=== PATIENT | male | born 1930 | race Caucasian/White ===

== ENCOUNTER 2018-07-09 15:11 | Inpatient (IN) | payer OTHER ==
[2018-07-09] MEDS ORDERED: SODIUM CHLORIDE 0.9% 500 ML INFUS.BAG IV ONE ×2 (15:48→17:50)
[2018-07-09] MEDS ORDERED: ACETAMINOPHEN 1000 MG/100 ML VIAL (NON FORMULARY) IVPB ONE (15:48)
[2018-07-09] MEDS ORDERED: ONDANSETRON 4 MG/2 ML VIAL IVPUSH ONE (15:48)
[2018-07-09 16:07] LABS: VENOUS PC02 41.8 mmHg (38-52); VENOUS PH 7.39 (7.32-7.42); VENOUS PO2 34.3 mmHg (28-48)
--- NOTE | 2018-07-09 16:07 | PDOC ---
History of Present Illness - General Chief Complaint: SIRS, Suspected/Possible Stated Complaint: FALL - History of Present Illness Initial Comments: The patient is an 88M w/ a history of HTN, BPH, prostate cancer, chronic angina who presents for evaluation of 2 days of generalized weakness/myalgias, fevers, and NBNB vomiting. The patient reports that the symptoms worsened yesterday and improved slightly today. The patient also fell today and may have been on the floor for up to two hours before being found by the home health aid who called EMS. Endorses daughter as sick contact, but she is w/o confirmed flu. Of note, patient recently started taking Xtandi again for reported recurrent prostate cancer. Denies HAJI, vision changes, SOB, abdominal pain, diarrhea, dysuria, hematuria, or changes in sensation PCP: Dr. Ilan Villaseñor Uro: Dr. Harris Cards: [facility] but pt does not know their name Code status: Full 07/09/18 16:07 Past History - Past Medical History Allergies/Adverse Reactions: Allergies Allergy/AdvReac Type Severity Reaction Status Date / Time No Known Allergies Allergy Verified 07/09/18 16:25 Home Medications: Ambulatory Orders Alfuzosin HCl [Uroxatral] 10 mg PO DAILY 07/09/18 Aspirin 81 mg PO DAILY 07/09/18 Chlorthalidone 25 mg PO DAILY 07/09/18 Enzalutamide [Xtandi] 80 mg PO BID 07/09/18 Hydralazine HCl 50 mg PO DAILY 07/09/18 Multivitamin [Multiple Vitamins] 1 each PO DAILY 07/09/18 Olmesartan Medoxomil [Benicar (Nf)] 40 mg PO DAILY 07/09/18 Ranolazine [Ranexa] 500 mg PO BID 07/09/18 COPD: No HTN: Yes Hypercholesterolemia: Yes - Suicide/Smoking/Psychosocial Hx Smoking History: Former smoker Have you smoked in the past 12 months: No Information on smoking cessation initiated: No Hx Alcohol Use: No Drug/Substance Use Hx: No Review of Systems - Review of Systems Able to Perform ROS?: Yes Comments:: GENERAL/CONSTITUTIONAL: No fever or chills. No weakness HEAD, EYES, EARS, NOSE AND THROAT: No change in vision. No ear pain or discharge. No sore throat CARDIOVASCULAR: No chest pain or shortness of breath RESPIRATORY: Denies cough, hemoptysis GASTROINTESTINAL: No diarrhea or constipation GENITOURINARY: No dysuria, frequency, or change in urination MUSCULOSKELETAL: +myalgia SKIN: No rash NEUROLOGIC: No headache, vertigo, loss of consciousness, or change in strength/ sensation ENDOCRINE: No increased thirst. No abnormal weight change HEMATOLOGIC/LYMPHATIC: +prostate cancer; Denies history of blood clot ALLERGIC/IMMUNOLOGIC: No hives or skin allergy 07/09/18 16:42 *Physical Exam - Vital Signs Last Vital Signs Temp Pulse Resp BP Pulse Ox 101.2 F H 86 18 189/97 H 92 L 07/09/18 15:31 07/09/18 15:31 07/09/18 15:31 07/09/18 15:31 07/09/18 15:31 - Physical Exam Comments: GENERAL: Awake, alert, and fully oriented, in no acute distress HEAD: No signs of trauma, normocephalic, atraumatic EYES: PERRLA, EOMI, sclera anicteric, conjunctiva clear ENT: Hearing grossly normal, nares patent, oropharynx clear without exudates. Moist mucosa LUNGS: No distress, speaks full sentences, clear to auscultation bilaterally HEART: Regular rate and rhythm, normal S1 and S2, no murmurs appreciated, peripheral pulses normal and equal bilaterally ABDOMEN: Soft, nontender, normoactive bowel sounds. No guarding, no rebound. No masses EXTREMITIES : Normal inspection, Normal range of motion, no edema. No clubbing or cyanosis NEUROLOGICAL: Cranial nerves II through XII grossly intact. Normal speech, no focal sensorimotor deficits SKIN: Warm, Dry 07/09/18 17:15 Moderate Sedation - Procedure Monitoring Vital Signs: Procedure Monitoring Vital Signs Temperature 101.2 F H 07/09/18 15:31 Pulse Rate 86 07/09/18 15:31 Respiratory Rate 18 07/09/18 15:31 Blood Pressure 189/97 H 07/09/18 15:31 O2 Sat by Pulse Oximetry (%) 92 L 07/09/18 15:31 ED Treatment Course - LABORATORY CBC & Chemistry Diagram: 07/09/18 15:50 07/09/18 15:50 - RADIOLOGY Radiology Studies Ordered: Category Date Time Status HEAD CT WITHOUT CONTRAST [CT] Stat CT Scan 07/09/18 16:06 Ordered CHEST X-RAY PORTABLE* [RAD] Stat Radiology 07/09/18 15:33 Ordered Medical Decision Making - Medical Decision Making The pt is an 88M w/ a history of prostate cancer, BPH, HTN who presents for evaluation of ED Course Sepsis w\u Flu swab 1L NS, Ofirmev, Pete Influenza A positive 07/09/18 16:32 No leukocytosis No anemia LFTs w/o sig derangement UA w/o evidence of UTI INR slightly elevated at 1.13 Cr 2.8, no previous to compare Trop I 0.18, likely demand Will give Zosyn 3.375 IV for presumed sepsis given fever and troponinemia Will give Tamiflu for influenza A Cont. IVF CT w/o evidence of acute bleed, evidence of acute Dispo: Admit for Abx and resuscitation Patient's daughter now reports that the patient has a history of kidney disease that she forgot to mention earlier but she does not know his baseline Cr. She says she will retrieve his health records from home and bring them here. 07/09/18 18:13 *DC/Admit/Observation/Transfer Diagnosis at time of Disposition: Influenza A, Prostate cancer Sepsis Qualifiers: Sepsis type: sepsis due to unspecified organism Qualified Code(s): A41.9 - Sepsis, unspecified organism - Discharge Dispostion Condition at time of disposition: Fair Decision to Admit order: Yes - Referrals Referrals: Ilan Villaseñor MD [Primary Care Provider] - - Patient Instructions - Post Discharge Activity
[2018-07-09 16:08] LABS: BASO % 0.4 % (0-2.0); EOS % 0.1 % (0-4.5); HEMATOCRIT 32.2 % (35.4-49); HEMOGLOBIN 11.1 GM/dL (11.7-16.9); LYMPH % 9.2 % (8-40); MCH 28.9 pg (25.7-33.7); MCHC 34.3 g/dl (32.0-35.9); MEAN CELL VOLUME 84.2 fl (80-96); MEAN PLT VOLUME 8.1 fl (7.5-11.1); MONO % 11.4 % (3.8-10.2); NEUT % 78.9 % (42.8-82.8); PLATELET COUNT 146 K/MM3 (134-434); RBC 3.83 M/mm3 (4.00-5.60); RDW 13.3 % (11.9-15.9); WHITE BLOOD COUNT 4.6 K/mm3 (4.0-10.0)
--- NOTE | 2018-07-09 16:14 | PDOC ---
Attending Attestation - HPI HPI: 07/09/18 16:35 88 year old male with past medical history of hypertension, chronic angina, and prostate CA who presents to the ED with complaints of generalized weakness, body aches, fever, nausea and vomiting. He also reports history of a fall today that was unwitnessed, stating he was on the floor for 2 hours before he was found by his aide. It is uncertain if he hit his head. Denies LOC, chest pain, palpitations, shortness of breath or urinary complaints. - Physicial Exam PE: 07/09/18 16:35 Vitals: Triage Vital signs reviewed General Appearance: no acute distress, lethargic Head: Atraumatic, normocephalic Eyes: Pupils equal reactive round, extraocular movement intact Neck: Supple;No Nuchal rigidity Cardiac: Regular rate and rhythm, no murmurs, no rubs, no gallops, Lungs: Clear to auscultation bilateral, good air movement bilaterally, Abdomen: Soft, nondistended, normal bowel sounds, nontender to palpation Extremities: Full range of motion to all extremities, no cyanosis, clubbing, or edema Skin: Warm and dry, no rashes or lesions, no petechiae Neuro: AOX3; Cranial Nerves 2-12 grossly intact, Strength intact to all extremities, Sensation intact to all extremities Psych: normal mood, normal affect - Medical Decision Making 07/09/18 16:36 Documentation prepared by Taina Sotomayor, acting as medical stenographer for Jairon Torres MD.. <Taina Sotomayor - Last Filed: 07/09/18 16:35> - Resident Resident Name: Jason Beckman - ED Attending Attestation I have performed the following: I have examined & evaluated the patient, The case was reviewed & discussed with the resident, I agree w/resident's findings & plan, Exceptions are as noted - Medical Decision Making 88 year old male with past medical history of hypertension, chronic angina, and prostate CA who presents to the ED with complaints of generalized weakness, body aches, fever, nausea and vomiting. He also reports history of a fall today that was unwitnessed, stating he was on the floor for 2 hours before he was found by his aide. It is uncertain if he hit his head. Denies LOC, chest pain, palpitations, shortness of breath or urinary complaints. Flu positive detectable troponin we'll admit for sepsis treat with Tamiflu IV fluids and further management <Jairon Torres - Last Filed: 07/09/18 16:49> Heart Score/ECG Review - ECG Impressions Comment:: 07/09/18 16:49 EKG performed at 1547 demonstrates normal sinus rhythm first-degree AV block left ventricular hypertrophy no ST elevations or T-wave inversions. Interpreted by me. <Jairon Torres - Last Filed: 07/09/18 16:49>
[2018-07-09 16:24] LABS: INR 1.13 (0.83-1.09); PROTHROMBIN TIME (PATIENT) 13.3 SEC (9.7-13.0)
[2018-07-09 16:27] LABS: ACTIVATED PTT 28.2 SECONDS (25.2-36.5)
[2018-07-09 16:29] LABS: URINE APPEARANCE CLEAR; URINE BILIRUBIN NEGATIVE (<2.0 mg/dL); URINE COLOR YELLOW; URINE GLUCOSE (UA) NEGATIVE (NEGATIVE); URINE KETONE NEGATIVE (NEGATIVE); URINE LEUK ESTERASE NEGATIVE (NEGATIVE); URINE NITRITE NEGATIVE (NEGATIVE); URINE PROTEIN 2+ (NEGATIVE); URINE UROBILINOGEN NEGATIVE mg/dL (0.2-1.0)
[2018-07-09 16:35] LABS: ALBUMIN 3.6 g/dl (3.4-5.0); ALK PHOS 75 U/L (45-117); ANION GAP 8 MMOL/L (8-16); BILIRUBIN,TOTAL 0.6 mg/dL (0.2-1); BLOOD UREA NITROGEN 38 mg/dL (7-18); CALCIUM 8.5 mg/dL (8.5-10.1); CHLORIDE 101 mmol/L (98-107); CO2 25 mmol/L (21-32); CREATININE 2.8 mg/dL (0.55-1.3); GLUCOSE,RANDOM 138 mg/dL (74-106); SGOT/AST 42 U/L (15-37); SGPT/ALT 24 U/L (13-61); SODIUM 135 mmol/L (136-145); TOT PROT 7.8 g/dl (6.4-8.2)
[2018-07-09 16:36] LABS: EPI CELLS RARE /HPF (FEW); URINE HYALINE CAST 1 /lpf; URINE MUCUS RARE
[2018-07-09] MEDS ORDERED: PIPERACILLIN/TAZOB 3.375 GM 3.375 GM in DEXTROSE 5%-WATER - 50 ML IVPB ONE (16:38)
[2018-07-09] MEDS ORDERED: OSELTAMIVIR PHOSPHATE 30 MG CAPSULE PO ONE (16:40)
[2018-07-09] MEDS ORDERED: OSELTAMIVIR PHOSPHATE 75 MG CAPSULE ONE (16:43)
[2018-07-09] MEDS ORDERED: PIPERACILLIN/TAZOB 3.375 GM 3.375 GM/50 ML BAG IVPB ONE (16:44)
[2018-07-09] MEDS ORDERED: OSELTAMIVIR PHOSPHATE 75 MG CAPSULE PO SCH ×4 (16:57→22:00)
--- NOTE | 2018-07-09 17:56 | HP ---
CHIEF COMPLAINT: Fall/Dizziness HISTORY OF PRESENT ILLNESS: Seen and examined; briefly, this is an 88 y/o vietnamese speaking male presenting to the ER with a CC of dizziness and fall at home; he was found to be flu positive and to have a positive troponin in the ER. Denies ever having any CP, SOB, etc. Denies any cough or sputum production. He is free of orthopnea/ dyspnea but is noted to have an elevated BNP but alonside elevated Cr which makes tis less reliable. He had no rotational movement with the fall, caught himself on the table, didn't hit his head and no LOC. 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 and that the patient doesn't know who it is there). He was given fluid and tamiflu in the ER and was brought to telemetry for further treatment and monitoring; due to his elevated trop/BNP echo has been ordered and I am consulting cardiology. Thank you Dr. Dominguez for allowing us to take part in the ongoing care of this patient. PAST MEDICAL HISTORY: HTN, BPH, CAD, Prostate CA, Chronic Anginal Pain PAST SURGICAL HISTORY: No recent procedures Social History: Denies current EtOH, drug, or tobacco abuse Family History: Asked and noncontributory Allergies No Known Allergies Allergy (Verified 07/09/18 16:25) HOME MEDICATIONS: Home Medications Medication Instructions Recorded Alfuzosin HCl [Uroxatral] 10 mg PO DAILY 07/09/18 Aspirin 81 mg PO DAILY 07/09/18 Chlorthalidone 25 mg PO DAILY 07/09/18 Enzalutamide [Xtandi] 80 mg PO BID 07/09/18 Hydralazine HCl 50 mg PO DAILY 07/09/18 Multivitamin [Multiple Vitamins] 1 each PO DAILY 07/09/18 Olmesartan Medoxomil [Benicar (Nf)] 40 mg PO DAILY 07/09/18 Ranolazine [Ranexa] 500 mg PO BID 07/09/18 REVIEW OF SYSTEMS 10 sys ROS done and negative aside from HPI PHYSICAL EXAMINATION Vital Signs - 24 hr 07/09/18 07/09/18 07/09/18 15:31 17:08 17:10 Temperature 101.2 F H Pulse Rate 86 Pulse Rate [ 90 Left Radial] Respiratory 18 18 18 Rate Blood Pressure 189/97 H Blood Pressure 175/73 H [Right Arm] O2 Sat by Pulse 92 L 93 L 98 Oximetry (%) GENERAL: Awake, alert, and fully oriented, in no acute distress. HEAD: Normal with no signs of trauma. EYES: Pupils equal, round and reactive to light, extraocular movements intact EARS, NOSE, THROAT: Ears normal, nares patent, oropharynx clear without exudates NECK: Normal range of motion, supple without lymphadenopathy, JVD, or masses. LUNGS: Breath sounds equal, clear to auscultation bilaterally. HEART: Regular rate and rhythm, normal S1 and S2 without murmur, rub or gallop. ABDOMEN: Soft, nontender, not distended, normoactive bowel sounds MUSCULOSKELETAL: Normal range of motion at all joints. NEUROLOGICAL: Cranial nerves II-XII intact. Normal speech. Normal gait. PSYCHIATRIC: Cooperative. Good eye contact. Appropriate mood and affect. SKIN: Warm, dry, normal turgor, no rashes or lesions noted, normal capillary refill. Laboratory Results - last 24 hr 07/09/18 07/09/18 07/09/18 15:50 15:50 15:50 WBC 4.6 RBC 3.83 L Hgb 11.1 L Hct 32.2 L MCV 84.2 MCH 28.9 MCHC 34.3 RDW 13.3 Plt Count 146 MPV 8.1 Absolute Neuts (auto) 3.6 Neutrophils % 78.9 Lymphocytes % 9.2 Monocytes % 11.4 H Eosinophils % 0.1 Basophils % 0.4 Nucleated RBC % 0 PT with INR 13.30 H INR 1.13 H PTT (Actin FS) 28.2 VBG pH 7.39 POC VBG pCO2 41.8 POC VBG pO2 34.3 Mixed VBG HCO3 24.5 Sodium Potassium Chloride Carbon Dioxide Anion Gap BUN Creatinine Creat Clearance w eGFR Random Glucose Lactic Acid Calcium Total Bilirubin AST ALT Alkaline Phosphatase Troponin I Total Protein Albumin Urine Color Urine Appearance Urine pH Ur Specific [place] Urine Protein Urine Glucose (UA) Urine Ketones Urine Blood Urine Nitrite Urine Bilirubin Urine Urobilinogen Ur Leukocyte Esterase Urine WBC (Auto) Urine RBC (Auto) Ur Epithelial Cells Hyaline Casts Urine Mucus Influenza A (Rapid) Influenza B (Rapid) 07/09/18 07/09/18 07/09/18 15:50 15:50 15:50 WBC RBC Hgb Hct MCV MCH MCHC RDW Plt Count MPV Absolute Neuts (auto) Neutrophils % Lymphocytes % Monocytes % Eosinophils % Basophils % Nucleated RBC % PT with INR INR PTT (Actin FS) VBG pH POC VBG pCO2 POC VBG pO2 Mixed VBG HCO3 Sodium 135 L Potassium 4.0 Chloride 101 Carbon Dioxide 25 Anion Gap 8 BUN 38 H Creatinine 2.8 H Creat Clearance w eGFR 21.54 Random Glucose 138 H Lactic Acid 1.4 Calcium 8.5 Total Bilirubin 0.6 AST 42 H ALT 24 Alkaline Phosphatase 75 Troponin I 0.18 H Total Protein 7.8 Albumin 3.6 Urine Color Urine Appearance Urine pH Ur Specific [place] Urine Protein Urine Glucose (UA) Urine Ketones Urine Blood Urine Nitrite Urine Bilirubin Urine Urobilinogen Ur Leukocyte Esterase Urine WBC (Auto) Urine RBC (Auto) Ur Epithelial Cells Hyaline Casts Urine Mucus Influenza A (Rapid) Influenza B (Rapid) 07/09/18 07/09/18 15:50 16:05 WBC RBC Hgb Hct MCV MCH MCHC RDW Plt Count MPV Absolute Neuts (auto) Neutrophils % Lymphocytes % Monocytes % Eosinophils % Basophils % Nucleated RBC % PT with INR INR PTT (Actin FS) VBG pH POC VBG pCO2 POC VBG pO2 Mixed VBG HCO3 Sodium Potassium Chloride Carbon Dioxide Anion Gap BUN Creatinine Creat Clearance w eGFR Random Glucose Lactic Acid Calcium Total Bilirubin AST ALT Alkaline Phosphatase Troponin I Total Protein Albumin Urine Color Yellow Urine Appearance Clear Urine pH 5.0 Ur Specific [place] 1.017 Urine Protein 2+ H Urine Glucose (UA) Negative Urine Ketones Negative Urine Blood 1+ H Urine Nitrite Negative Urine Bilirubin Negative Urine Urobilinogen Negative Ur Leukocyte Esterase Negative Urine WBC (Auto) 1 Urine RBC (Auto) <1 Ur Epithelial Cells Rare Hyaline Casts 1 Urine Mucus Rare Influenza A (Rapid) Positive A Influenza B (Rapid) Negative ASSESSMENT/PLAN: Presents with fall/elevated troponin/dizziness found to have +flu and elevated BNP but with elevated Cr. Will bring in to the floor and consult cardiology, monitoring the patient on telemetry. 1) Fall/Dizziness -Checking echo, carotid dopplers. No selene syncope. Checking orthostatics. -Could be due to the underlying influenza -Monitor on tele 2) Elevated troponin -QD ASA; trend trops, monitor tele. Consulting cardiology. Elevated Cr can falsely elevate the troponin but still should be investigated. 0.2 to 0.3 3) Influenza A -BID Tamiflu, monitor for improvement 4) HTN -Continue home meds 5) Elevated Cr -MILTON vs. CKD; checking RENU and need to obtain old records in the AM. Trend BMP and follow Cr and UOP. Checking FeNa 6) Elevated BNP -Is requiring small amount of O2; no respiratory complaints. Will place on incentive spirometry and check an echo. Holding off on further fluids; no need to diurese now. Will defer to cardiology. He does have elevated Cr which can falsely elevate this 7) Hx Prostate Ca -Follows with Dr. Harris; no acute issues. FU OP. 8) Chronic Angina -Denies any chest pain; continue home ranexa FENA -PO fluids -PRN replete -Cardiac diet -As tolerated Full Code Visit type - Emergency Visit Emergency Visit: Yes ED Registration Date: 07/09/18 Care time: The patient presented to the Emergency Department on the above date and was hospitalized for further evaluation of their emergent condition. - New Patient This patient is new to me today: Yes Date on this admission: 07/18/18 - Critical Care Critical Care patient: No
[2018-07-09] MEDS ORDERED: SODIUM CHLORIDE 1,000 ML IV SCH (18:00)
[2018-07-09] MEDS: HEPARIN NA (PORCINE) 5,000 UNITS/ML 1ML VIAL SQ SCH (21:51)
[2018-07-09] MEDS ORDERED: ENZALUTAMIDE 80 MG PO SCH (22:00)
[2018-07-09] MEDS ORDERED: OSELTAMIVIR PHOSPHATE 30 MG CAPSULE PO SCH (22:00)
[2018-07-09] MEDS: RANOLAZINE E.R. 500 MG TABLET (FP) PO SCH (22:41)
[2018-07-10] MEDS ORDERED: ACETAMINOPHEN 325 MG TABLET (FP) PO ONE (05:58)
[2018-07-10 06:51] LABS: BASO % 0.6 % (0-2.0); HEMATOCRIT 30.6 % (35.4-49); HEMOGLOBIN 10.2 GM/dL (11.7-16.9); LYMPH % 33.6 % (8-40); MCHC 33.3 g/dl (32.0-35.9); MEAN CELL VOLUME 84.1 fl (80-96); MONO % 15.6 % (3.8-10.2); NEUT % 50.2 % (42.8-82.8); PLATELET COUNT 130 K/MM3 (134-434); RBC 3.64 M/mm3 (4.00-5.60); RDW 13.7 % (11.9-15.9); WHITE BLOOD COUNT 3.5 K/mm3 (4.0-10.0)
[2018-07-10 07:25] LABS: ALK PHOS 58 U/L (45-117); ANION GAP 9 MMOL/L (8-16); BILIRUBIN,TOTAL 0.5 mg/dL (0.2-1); BLOOD UREA NITROGEN 43 mg/dL (7-18); CALCIUM 8.2 mg/dL (8.5-10.1); CHLORIDE 105 mmol/L (98-107); CO2 26 mmol/L (21-32); CREATININE 2.6 mg/dL (0.55-1.3); GLUCOSE,RANDOM 92 mg/dL (74-106); SGOT/AST 56 U/L (15-37); SGPT/ALT 23 U/L (13-61); SODIUM 140 mmol/L (136-145); TOT PROT 6.4 g/dl (6.4-8.2)
[2018-07-10] MEDS: TAMSULOSIN HCL 0.4 MG CAP PO SCH (07:59)
[2018-07-10] MEDS ORDERED: OSELTAMIVIR PHOSPHATE 30 MG CAPSULE PO SCH (10:00)
[2018-07-10] MEDS ORDERED: PT OWN MED DRAWER 7, Y5N ONE (10:53)
[2018-07-10] MEDS: HEPARIN NA (PORCINE) 5,000 UNITS/ML 1ML VIAL SQ SCH ×2 (10:59→21:57)
[2018-07-10] MEDS: RANOLAZINE E.R. 500 MG TABLET (FP) PO SCH ×2 (11:00→21:57)
[2018-07-10] MEDS: hydrALAZINE HCL 50 MG TABLET (FP) PO SCH (11:00)
[2018-07-10] MEDS: MULTIVITAMINS (DAILY MVI) TABLET (FP) PO SCH (11:00)
[2018-07-10] MEDS: CHLORTHALIDONE 25 MG TABLET PO SCH (11:00)
[2018-07-10] MEDS: ASPIRIN 81 MG CHEWABLE TABLETS PO SCH (11:00)
[2018-07-10] MEDS: VALSARTAN 160 MG TABLET (UD) PO SCH (11:00)
--- NOTE | 2018-07-10 11:04 | ECHO ---
Version: 1 Name: BRIANDA XIE Exam: Adult Echocardiogram Study Date: 07/10/2018, 9:01 AM Age: 88 Years MMode/2D Measurements & Calculations IVSd: 0.85 cm LVIDs: 3.4 cm LVIDd: 4.6 cm LVPWd: 0.83 cm Ao root diam: 3.1 cm LA dimension: 3.7 cm Doppler Measurements & Calculations MV E max jason: 61.7 cm/sec Med E/e': 15.1 MV A max jason: 102.7 cm/sec Med Peak E' Jason: 4.1 cm/sec MV E/A: 0.60 Lat E/e': 11.3 Lat Peak E' Jason: 5.5 cm/sec MR max P.2 mmHg AI P1/2t: 577.6 msec TR max jason: 263.3 cm/sec TR max P.8 mmHg Left Ventricle There is mild asymmetric left ventricular hypertrophy. The left ventricular ejection fraction is nor mal. Ejection Fraction = 55-60%. Right Ventricle The right ventricle is normal in size and function. Atria Normal left and right atrial size and function. Mitral Valve There is mild to moderate mitral valve thickening. There is no mitral valve stenosis. There is mild mitral regurgitation. Tricuspid Valve The tricuspid valve is normal in structure and function. There is mild tricuspid regurgitation. Aortic Valve There is moderate aortic sclerosis.;. No hemodynamically significant valvular aortic stenosis. Mild aortic regurgitation. Pulmonic Valve The pulmonic valve is not well seen, but is grossly normal. There is no pulmonic valvular stenosis. Great Vessels The aortic root is normal size. Pericardium/Pleura There is no pericardial effusion. Summary Statements There is mild asymmetric left ventricular hypertrophy. The left ventricular ejection fraction is normal. Ejection Fraction = 55-60%. There is mild to moderate mitral valve thickening. There is mild mitral regurgitation. There is moderate aortic sclerosis.; Mild aortic regurgitation. There is no pericardial effusion. MD Lares *Wallace 07/10/2018, 11:03 AM Ordering Physician: SAI ALFREDO Referring Physician: ANISH MALCOLM Performed By: Gabby Vargas
--- NOTE | 2018-07-10 11:41 | EKG ---
Test Reason : Blood Pressure : / mmHG Vent. Rate : 078 BPM Atrial Rate : 078 BPM P-R Int : 246 ms QRS Dur : 096 ms QT Int : 384 ms P-R-T Axes : 049 004 065 degrees QTc Int : 437 ms SINUS RHYTHM WITH 1ST DEGREE A-V BLOCK POSSIBLE LEFT ATRIAL ENLARGEMENT LEFT VENTRICULAR HYPERTROPHY NONSPECIFIC T WAVE ABNORMALITY ABNORMAL ECG WHEN COMPARED WITH ECG OF 09-JUL-2018 15:47, NO SIGNIFICANT CHANGE WAS FOUND Confirmed by AG DAILEY, SHANNA ([id number]) on 07/10/2018 11:41:04 AM Referred By: Confirmed By:SHANNA LUONG MD
--- NOTE | 2018-07-10 11:58 | EKG ---
Test Reason : Blood Pressure : / mmHG Vent. Rate : 092 BPM Atrial Rate : 092 BPM P-R Int : 232 ms QRS Dur : 098 ms QT Int : 340 ms P-R-T Axes : 050 -02 070 degrees QTc Int : 420 ms POOR DATA QUALITY, INTERPRETATION MAY BE ADVERSELY AFFECTED SINUS RHYTHM WITH 1ST DEGREE A-V BLOCK POSSIBLE LEFT ATRIAL ENLARGEMENT LEFT VENTRICULAR HYPERTROPHY ABNORMAL ECG NO PREVIOUS ECGS AVAILABLE Confirmed by AG DAILEY, SHANNA ([id number]) on 07/10/2018 11:57:53 AM Referred By: Confirmed By:SHANNA LUONG MD
--- NOTE | 2018-07-10 12:31 | CON.CARD ---
Cardiology Consult (text) - Consultation Consultation Note: cc: weakness, fever hpi: 88 m hx htn, angina, here with weakness, fever, found to have flu. No cp sob palps dizzy loc pnd orthopnea le edema. On meds for flu now, feeling better. Sees cardio at [facility] for htn. He denies cad/mi hx. pmh: per hpi psh: nc fam: no premature cad, scd social: no tob ros: per hpi; +fever, +n/v, no dysuria hematuria gib, +cough meds: Ambulatory Orders Alfuzosin HCl [Uroxatral] 10 mg PO DAILY 07/09/18 Aspirin 81 mg PO DAILY 07/09/18 Chlorthalidone 25 mg PO DAILY 07/09/18 Enzalutamide [Xtandi] 80 mg PO BID 07/09/18 Hydralazine HCl 50 mg PO DAILY 07/09/18 Multivitamin [Multiple Vitamins] 1 each PO DAILY 07/09/18 Olmesartan Medoxomil [Benicar (Nf)] 40 mg PO DAILY 07/09/18 Ranolazine [Ranexa] 500 mg PO BID 07/09/18 pe: Vital Signs Period Temp Pulse Resp BP Sys/Diez Pulse Ox Last 24 Hr 98.6 F-101.2 F 68-90 18-20 148-189/73-98 92-98 nad no jvd rrr s1s2 no mrg cta bl nl eff aaox3 no le e/c/c abd nt nd pos bs no jaundice diaphoresis pos dp pt no carotid bruits Current Medications Generic Name Dose Route Start Last Admin Trade Name Nani PRN Reason Stop Dose Admin Aspirin 81 mg 07/10/18 10:00 07/10/18 11:00 Asa - PO 81 mg DAILY BEULAH Administration Chlorthalidone 25 mg 07/10/18 10:00 07/10/18 11:00 Hygroton - PO 25 mg DAILY BEULAH Administration Heparin Sodium (Porcine) 5,000 unit 07/09/18 22:00 07/10/18 10:59 Heparin - SQ 5,000 unit BID BEULAH Administration Hydralazine HCl 50 mg 07/10/18 10:00 07/10/18 11:00 Apresoline - PO 50 mg DAILY BEULAH Administration Multivitamins/Minerals/Vitamin C 1 tab 07/10/18 10:00 07/10/18 11:00 Tab-A-Vit - PO 1 tab DAILY BEULAH Administration Non-Formulary Medication 80 mg 07/09/18 22:00 Enzalutamide [Xtandi] PO BID BEULAH Oseltamivir Phosphate 30 mg 07/09/18 22:00 Tamiflu - PO 07/14/18 21:59 BID BEULAH Ranolazine 500 mg 07/09/18 22:00 07/10/18 11:00 Ranexa - PO 500 mg BID BEULAH Administration Tamsulosin HCl 0.4 mg 07/10/18 08:30 07/10/18 07:59 Flomax - PO 0.4 mg DAILY@0830 BEULAH Administration Valsartan 320 mg 07/10/18 10:00 07/10/18 11:00 Diovan - PO 320 mg DAILY BEULAH Administration Laboratory Last Values WBC 3.5 K/mm3 (4.0-10.0) L 07/10/18 05:30 RBC 3.64 M/mm3 (4.00-5.60) L 07/10/18 05:30 Hgb 10.2 GM/dL (11.7-16.9) L 07/10/18 05:30 Hct 30.6 % (35.4-49) L 07/10/18 05:30 MCV 84.1 fl (80-96) 07/10/18 05:30 MCH 28.0 pg (25.7-33.7) 07/10/18 05:30 MCHC 33.3 g/dl (32.0-35.9) 07/10/18 05:30 RDW 13.7 % (11.9-15.9) 07/10/18 05:30 Plt Count 130 K/MM3 (134-434) L 07/10/18 05:30 MPV 8.0 fl (7.5-11.1) 07/10/18 05:30 Absolute Neuts (auto) 1.8 K/mm3 (1.5-8.0) 07/10/18 05:30 Neutrophils % 50.2 % (42.8-82.8) D 07/10/18 05:30 Lymphocytes % 33.6 % (8-40) D 07/10/18 05:30 Monocytes % 15.6 % (3.8-10.2) H 07/10/18 05:30 Eosinophils % 0.0 % (0-4.5) D 07/10/18 05:30 Basophils % 0.6 % (0-2.0) 07/10/18 05:30 Nucleated RBC % 0 % (0-0) 07/10/18 05:30 PT with INR 13.30 SEC (9.7-13.0) H 07/09/18 15:50 INR 1.13 (0.83-1.09) H 07/09/18 15:50 PTT (Actin FS) 28.2 SECONDS (25.2-36.5) 07/09/18 15:50 VBG pH 7.39 (7.32-7.42) 07/09/18 15:50 POC VBG pCO2 41.8 mmHg (38-52) 07/09/18 15:50 POC VBG pO2 34.3 mmHg (28-48) 07/09/18 15:50 Mixed VBG HCO3 24.5 meq/L (19-25) 07/09/18 15:50 Sodium 140 mmol/L (136-145) 07/10/18 05:30 Potassium 4.0 mmol/L (3.5-5.1) 07/10/18 05:30 Chloride 105 mmol/L (98-107) 07/10/18 05:30 Carbon Dioxide 26 mmol/L (21-32) 07/10/18 05:30 Anion Gap 9 MMOL/L (8-16) 07/10/18 05:30 BUN 43 mg/dL (7-18) H 07/10/18 05:30 Creatinine 2.6 mg/dL (0.55-1.3) H 07/10/18 05:30 Creat Clearance w eGFR 23.47 (>60) 07/10/18 05:30 Random Glucose 92 mg/dL (74-106) 07/10/18 05:30 Hemoglobin A1c % 6.0 % (4.2-6.3) 07/09/18 19:03 Lactic Acid 1.3 mmol/L (0.4-2.0) 07/09/18 19:03 Calcium 8.2 mg/dL (8.5-10.1) L 07/10/18 05:30 Magnesium 2.0 mg/dL (1.8-2.4) 07/10/18 05:30 Total Bilirubin 0.5 mg/dL (0.2-1) 07/10/18 05:30 AST 56 U/L (15-37) H 07/10/18 05:30 ALT 23 U/L (13-61) 07/10/18 05:30 Alkaline Phosphatase 58 U/L (45-117) 07/10/18 05:30 Creatine Kinase 1577 U/L (26-308) H 07/10/18 03:00 Creatine Kinase Index 0.1 % (0.0-5.0) 07/10/18 03:00 CK-MB (CK-2) 3.1 ng/mL (0.5-3.6) 07/10/18 03:00 Troponin I 0.34 ng/ml (0.00-0.05) H 07/10/18 09:55 B-Natriuretic Peptide 3651.0 pg/ml (5-450) H 07/09/18 19:03 Total Protein 6.4 g/dl (6.4-8.2) 07/10/18 05:30 Albumin 3.0 g/dl (3.4-5.0) L 07/10/18 05:30 Triglycerides 66 mg/dL (0-150) 07/09/18 19:03 Cholesterol 172 mg/dL (50-200) 07/09/18 19:03 Total LDL Cholesterol 100 mg/dL (5-100) 07/09/18 19:03 HDL Cholesterol 60 mg/dL (40-60) 07/09/18 19:03 Urine Color Yellow 07/09/18 16:05 Urine Appearance Clear 07/09/18 16:05 Urine pH 5.0 (5.0-8.0) 07/09/18 16:05 Ur Specific [place] 1.017 (1.010-1.035) 07/09/18 16:05 Urine Protein 2+ (NEGATIVE) H 07/09/18 16:05 Urine Glucose (UA) Negative (NEGATIVE) 07/09/18 16:05 Urine Ketones Negative (NEGATIVE) 07/09/18 16:05 Urine Blood 1+ (NEGATIVE) H 07/09/18 16:05 Urine Nitrite Negative (NEGATIVE) 07/09/18 16:05 Urine Bilirubin Negative (<2.0 mg/dL) 07/09/18 16:05 Urine Urobilinogen Negative mg/dL (0.2-1.0) 07/09/18 16:05 Ur Leukocyte Esterase Negative (NEGATIVE) 07/09/18 16:05 Urine WBC (Auto) 1 /hpf (3-5) 07/09/18 16:05 Urine RBC (Auto) <1 /hpf (0-3) 07/09/18 16:05 Ur Epithelial Cells Rare /HPF (FEW) 07/09/18 16:05 Hyaline Casts 1 /lpf 07/09/18 16:05 Urine Mucus Rare 07/09/18 16:05 Urine Creatinine 92.0 mg/dL (20-320) 07/10/18 00:15 Influenza A (Rapid) Positive A 07/09/18 15:50 Influenza B (Rapid) Negative 07/09/18 15:50 tele: sr cxr: no chf ecg: sr no ischemic changes, nl qtc a/p: 88 m hx htn, angina, here with weakness, fever, found to have flu. flu: -tx per pmd/ID htn: -resume home meds and monitor cad, angina: -pt on ranexa and sees an outside box worker but pt denies hx cad/mi -no signs acs here, borderline trop with flat trend, nl ckmb, not c/w acs -check echo -cont home meds sri/ckd: -baseline unknown, monitor cr trend
--- NOTE | 2018-07-10 14:24 | PN ---
Progress Note, Physician Chief Complaint: Influenza A positive Elevated troponin History of Present Illness: Previous notes and events reviewed awake and alert NAD denies chest pain, SOB Echo show EF 55-60% - Current Medication List Current Medications: Active Medications Aspirin (Asa -) 81 mg PO DAILY [facility] Last Admin: 07/10/18 11:00 Dose: 81 mg Chlorthalidone (Hygroton -) 25 mg PO DAILY [facility] Last Admin: 07/10/18 11:00 Dose: 25 mg Heparin Sodium (Porcine) (Heparin -) 5,000 unit SQ BID [facility] Last Admin: 07/10/18 10:59 Dose: 5,000 unit Hydralazine HCl (Apresoline -) 50 mg PO DAILY [facility] Last Admin: 07/10/18 11:00 Dose: 50 mg Multivitamins/Minerals/Vitamin C (Tab-A-Vit -) 1 tab PO DAILY [facility] Last Admin: 07/10/18 11:00 Dose: 1 tab Non-Formulary Medication (Enzalutamide [Xtandi]) 80 mg PO BID [facility] Oseltamivir Phosphate (Tamiflu -) 30 mg PO BID [facility] Stop: 07/14/18 21:59 Oseltamivir Phosphate (Tamiflu -) 30 mg PO DAILY [facility] Stop: 07/16/18 09:59 Ranolazine (Ranexa -) 500 mg PO BID [facility] Last Admin: 07/10/18 11:00 Dose: 500 mg Tamsulosin HCl (Flomax -) 0.4 mg PO DAILY@0830 [facility] Last Admin: 07/10/18 07:59 Dose: 0.4 mg Valsartan (Diovan -) 320 mg PO DAILY [facility] Last Admin: 07/10/18 11:00 Dose: 320 mg - Objective Vital Signs: Vital Signs Temperature 98.4 F 07/10/18 13:55 Pulse Rate 75 07/10/18 13:55 Respiratory Rate 18 07/10/18 13:55 Blood Pressure 147/77 07/10/18 13:55 O2 Sat by Pulse Oximetry (%) 97 07/09/18 21:00 Constitutional: Yes: No Distress, Calm Eyes: Yes: Conjunctiva Clear Neck: Yes: Supple Cardiovascular: Yes: Regular Rate and Rhythm Respiratory: Yes: Regular, CTA Bilaterally Gastrointestinal: Yes: Normal Bowel Sounds, Soft Musculoskeletal: Yes: WNL Extremities: Yes: WNL Edema: No Neurological: Yes: Alert, Oriented Psychiatric: Yes: Alert, Oriented Labs: CBC, BMP 07/10/18 05:30 07/10/18 05:30 INR, PTT INR 1.13 (0.83-1.09) H 07/09/18 15:50 Abnormal Lab Results 07/09/18 07/09/18 07/09/18 15:50 15:50 15:50 WBC RBC 3.83 L Hgb 11.1 L Hct 32.2 L Plt Count Monocytes % 11.4 H PT with INR 13.30 H INR 1.13 H Sodium 135 L BUN 38 H Creatinine 2.8 H Random Glucose 138 H Calcium AST 42 H Creatine Kinase Troponin I B-Natriuretic Peptide Albumin Urine Protein Urine Blood Influenza A (Rapid) 07/09/18 07/09/18 07/09/18 15:50 15:50 16:05 WBC RBC Hgb Hct Plt Count Monocytes % PT with INR INR Sodium BUN Creatinine Random Glucose Calcium AST Creatine Kinase Troponin I 0.18 H B-Natriuretic Peptide Albumin Urine Protein 2+ H Urine Blood 1+ H Influenza A (Rapid) Positive A 07/09/18 07/10/18 07/10/18 19:03 03:00 05:30 WBC 3.5 L RBC 3.64 L Hgb 10.2 L Hct 30.6 L Plt Count 130 L Monocytes % 15.6 H PT with INR INR Sodium BUN Creatinine Random Glucose Calcium AST Creatine Kinase 1577 H Troponin I 0.37 H B-Natriuretic Peptide 3651.0 H Albumin Urine Protein Urine Blood Influenza A (Rapid) 07/10/18 07/10/18 05:30 09:55 WBC RBC Hgb Hct Plt Count Monocytes % PT with INR INR Sodium BUN 43 H Creatinine 2.6 H Random Glucose Calcium 8.2 L AST 56 H Creatine Kinase Troponin I 0.34 H B-Natriuretic Peptide Albumin 3.0 L Urine Protein Urine Blood Influenza A (Rapid) <Susana Leal - Last Filed: 07/10/18 14:19> - Current Medication List Current Medications: Active Medications Aspirin (Asa -) 81 mg PO DAILY [facility] Last Admin: 07/11/18 10:08 Dose: 81 mg Chlorthalidone (Hygroton -) 12.5 mg PO DAILY [facility] Heparin Sodium (Porcine) (Heparin -) 5,000 unit SQ BID [facility] Last Admin: 07/11/18 10:09 Dose: 5,000 unit Hydralazine HCl (Apresoline -) 50 mg PO DAILY [facility] Last Admin: 07/11/18 10:08 Dose: 50 mg Multivitamins/Minerals/Vitamin C (Tab-A-Vit -) 1 tab PO DAILY [facility] Last Admin: 07/11/18 10:08 Dose: 1 tab Non-Formulary Medication (Enzalutamide [Xtandi]) 80 mg PO BID [facility] Oseltamivir Phosphate (Tamiflu -) 30 mg PO DAILY [facility] Stop: 07/16/18 09:59 Last Admin: 07/11/18 10:09 Dose: 30 mg Ranolazine (Ranexa -) 500 mg PO BID [facility] Last Admin: 07/11/18 10:08 Dose: 500 mg Tamsulosin HCl (Flomax -) 0.4 mg PO DAILY@0830 [facility] Last Admin: 07/11/18 10:09 Dose: 0.4 mg Valsartan (Diovan -) 160 mg PO DAILY [facility] - Objective Vital Signs: Vital Signs Temperature 98.3 F 07/11/18 10:00 Pulse Rate 77 07/11/18 10:00 Respiratory Rate 18 07/11/18 10:00 Blood Pressure 133/60 07/11/18 10:00 O2 Sat by Pulse Oximetry (%) 100 07/11/18 09:00 Labs: CBC, BMP 07/11/18 05:25 07/11/18 05:25 INR, PTT INR 1.13 (0.83-1.09) H 07/09/18 15:50 <Emiliana Dominguez - Last Filed: 07/11/18 15:24> Problem List - Problems (1) Influenza A Assessment/Plan: -tamiflu 30mg daily x 7d -respiratory isolation -tylenol for temp >100F Code(s): J10.1 - FLU DUE TO OTH IDENT INFLUENZA VIRUS W OTH RESP MANIFEST (2) Elevated troponin Assessment/Plan: -troponin 0.34 -will monitor for down trend -continue tele monitoring -cardiology on board Code(s): R74.8 - ABNORMAL LEVELS OF OTHER SERUM ENZYMES (3) HTN (hypertension) Assessment/Plan: -continue with chlorthalidone, diovan -low Na diet Code(s): I10 - ESSENTIAL (PRIMARY) HYPERTENSION (4) CAD (coronary artery disease) Assessment/Plan: -cont Ranexa and asa -echo show EF 55-60% -cardiology on board -continue tele monitoring Code(s): I25.10 - ATHSCL HEART DISEASE OF [place] CORONARY ARTERY W/O ANG PCTRS (5) MILTON (acute kidney injury) Assessment/Plan: -BUN/Cr elevated -renal consult made Code(s): N17.9 - ACUTE KIDNEY FAILURE, UNSPECIFIED <Susana Leal - Last Filed: 07/10/18 14:19> Assessment/Plan PATIENT SEEN AND EXAMINED AND I AGREE WITH THE ABOVE NOTE <Emiliana Dominguez - Last Filed: 07/11/18 15:24>
[2018-07-10] MEDS ORDERED: OSELTAMIVIR PHOSPHATE 30 MG CAPSULE PO ONE (14:45)
[2018-07-11 08:04] LABS: HEMATOCRIT 30.8 % (35.4-49); HEMOGLOBIN 10.4 GM/dL (11.7-16.9); MCH 28.2 pg (25.7-33.7); MCHC 33.7 g/dl (32.0-35.9); MEAN CELL VOLUME 83.7 fl (80-96); MEAN PLT VOLUME 8.3 fl (7.5-11.1); PLATELET COUNT 144 K/MM3 (134-434); RBC 3.68 M/mm3 (4.00-5.60); RDW 13.6 % (11.9-15.9); WHITE BLOOD COUNT 3.8 K/mm3 (4.0-10.0)
[2018-07-11 09:01] LABS: ALBUMIN 3.1 g/dl (3.4-5.0); ALK PHOS 59 U/L (45-117); ANION GAP 8 MMOL/L (8-16); BILIRUBIN,TOTAL 0.3 mg/dL (0.2-1); BLOOD UREA NITROGEN 48 mg/dL (7-18); CALCIUM 7.9 mg/dL (8.5-10.1); CHLORIDE 102 mmol/L (98-107); CO2 26 mmol/L (21-32); CREATININE 2.6 mg/dL (0.55-1.3); GLUCOSE,RANDOM 95 mg/dL (74-106); POTASSIUM 3.9 mmol/L (3.5-5.1); SGOT/AST 63 U/L (15-37); SGPT/ALT 26 U/L (13-61); SODIUM 135 mmol/L (136-145); TOT PROT 6.8 g/dl (6.4-8.2)
[2018-07-11] MEDS: VALSARTAN 160 MG TABLET (UD) PO SCH (10:08)
[2018-07-11] MEDS: ASPIRIN 81 MG CHEWABLE TABLETS PO SCH (10:08)
[2018-07-11] MEDS: RANOLAZINE E.R. 500 MG TABLET (FP) PO SCH ×2 (10:08→21:54)
[2018-07-11] MEDS: MULTIVITAMINS (DAILY MVI) TABLET (FP) PO SCH (10:08)
[2018-07-11] MEDS: hydrALAZINE HCL 50 MG TABLET (FP) PO SCH (10:08)
[2018-07-11] MEDS: CHLORTHALIDONE 25 MG TABLET PO SCH (10:08)
[2018-07-11] MEDS: HEPARIN NA (PORCINE) 5,000 UNITS/ML 1ML VIAL SQ SCH ×2 (10:09→21:54)
[2018-07-11] MEDS: OSELTAMIVIR PHOSPHATE 30 MG CAPSULE PO SCH (10:09)
[2018-07-11] MEDS: TAMSULOSIN HCL 0.4 MG CAP PO SCH (10:09)
--- NOTE | 2018-07-11 12:10 | PN ---
Progress Note, Physician History of Present Illness: No events Tele: NSR with PVCs - Current Medication List Current Medications: Active Medications Aspirin (Asa -) 81 mg PO DAILY [facility] Last Admin: 07/11/18 10:08 Dose: 81 mg Chlorthalidone (Hygroton -) 25 mg PO DAILY [facility] Last Admin: 07/11/18 10:08 Dose: 25 mg Heparin Sodium (Porcine) (Heparin -) 5,000 unit SQ BID [facility] Last Admin: 07/11/18 10:09 Dose: 5,000 unit Hydralazine HCl (Apresoline -) 50 mg PO DAILY [facility] Last Admin: 07/11/18 10:08 Dose: 50 mg Multivitamins/Minerals/Vitamin C (Tab-A-Vit -) 1 tab PO DAILY [facility] Last Admin: 07/11/18 10:08 Dose: 1 tab Non-Formulary Medication (Enzalutamide [Xtandi]) 80 mg PO BID [facility] Oseltamivir Phosphate (Tamiflu -) 30 mg PO DAILY [facility] Stop: 07/16/18 09:59 Last Admin: 07/11/18 10:09 Dose: 30 mg Ranolazine (Ranexa -) 500 mg PO BID [facility] Last Admin: 07/11/18 10:08 Dose: 500 mg Tamsulosin HCl (Flomax -) 0.4 mg PO DAILY@0830 [facility] Last Admin: 07/11/18 10:09 Dose: 0.4 mg Valsartan (Diovan -) 320 mg PO DAILY [facility] Last Admin: 07/11/18 10:08 Dose: 320 mg - Objective Vital Signs: Vital Signs Temperature 98.3 F 07/11/18 10:00 Pulse Rate 77 07/11/18 10:00 Respiratory Rate 18 07/11/18 10:00 Blood Pressure 133/60 07/11/18 10:00 O2 Sat by Pulse Oximetry (%) 100 07/11/18 09:00 Constitutional: Yes: Calm Eyes: Yes: WNL HENT: Yes: WNL Neck: Yes: WNL Cardiovascular: Yes: Regular Rate and Rhythm Respiratory: Yes: CTA Bilaterally Gastrointestinal: Yes: Normal Bowel Sounds Musculoskeletal: Yes: WNL Extremities: Yes: WNL Edema: No Labs: CBC, BMP 07/11/18 05:25 07/11/18 05:25 INR, PTT INR 1.13 (0.83-1.09) H 01/31/19 15:50 Assessment/Plan a/p: 88 m hx htn, angina, here with weakness, fever, found to have flu. flu: -tx per pmd/ID htn: -resume home meds and monitor cad, angina: -no signs acs here, borderline trop with flat trend, nl ckmb, not c/w acs -Echo report reviewed: LVEF 55-60%. No significant valvular abnormality -cont home meds sri/ckd: monitor cr trend
--- NOTE | 2018-07-11 13:17 | CONSULT ---
Consult Consult Specialty:: Nephrology Reason for Consultation:: Abnormal kidney functions. - History of Present Illness Chief Complaint: Acute Flu History of Present Illness: 88 m history of hypertension, Angina, CA prostate admitted with fever, and has Flu. No shortness of breath, orthopnea, chest pain. The patient has been started on Tamiflu. Found to have rising BUN/ Cr - History Source History Provided By: Patient, Medical Record Limitations to Obtaining History: Language Barrier - Past Medical History Renal/: Yes: Renal Inusuff, BPH - Alcohol/Substance Use Hx Alcohol Use: No - Smoking History Smoking history: Former smoker Have you smoked in the past 12 months: No Home Medications - Allergies Allergies/Adverse Reactions: Allergies Allergy/AdvReac Type Severity Reaction Status Date / Time No Known Allergies Allergy Verified 07/09/18 16:25 - Home Medications Home Medications: Ambulatory Orders Alfuzosin HCl [Uroxatral] 10 mg PO DAILY 07/09/18 Aspirin 81 mg PO DAILY 07/09/18 Chlorthalidone 25 mg PO DAILY 07/09/18 Enzalutamide [Xtandi] 80 mg PO BID 07/09/18 Hydralazine HCl 50 mg PO DAILY 07/09/18 Multivitamin [Multiple Vitamins] 1 each PO DAILY 07/09/18 Olmesartan Medoxomil [Benicar (Nf)] 40 mg PO DAILY 07/09/18 Ranolazine [Ranexa] 500 mg PO BID 07/09/18 Review of Systems Unable to obtain ROS, reason: poor historian - Review of Systems Constitutional: reports: Chills, Fever Eyes: denies: Blind Spots, Blurred Vision HENT: denies: Difficult Swallowing Neck: reports: No Symptoms Cardiovascular: denies: Chest Pain, Edema, Palpitations, Shortness of Breath Respiratory: reports: No Symptoms Gastrointestinal: reports: No Symptoms Genitourinary: reports: No Symptoms. denies: Burning, Flank Pain Musculoskeletal: denies: Back Pain, Extremity Pain Neurological: denies: Change in Speech, Confusion Physical Exam Vital Signs: Vital Signs Temperature 98.3 F 07/11/18 10:00 Pulse Rate 77 07/11/18 10:00 Respiratory Rate 18 07/11/18 10:00 Blood Pressure 133/60 07/11/18 10:00 O2 Sat by Pulse Oximetry (%) 100 07/11/18 09:00 Constitutional: Yes: Well Nourished, No Distress Eyes: Yes: Conjunctiva Clear HENT: Yes: Atraumatic Neck: Yes: Supple, Trachea Midline Cardiovascular: Yes: Regular Rate and Rhythm, S1, S2 Respiratory: Yes: CTA Bilaterally, Diminished Gastrointestinal: Yes: Normal Bowel Sounds, Soft Renal/: No: Bladder Distention, CVA Tenderness - Left, CVA Tenderness - Right Edema: No Neurological: Yes: Alert, Oriented Labs: CBC, BMP 07/11/18 05:25 07/11/18 05:25 Problem List - Problems (1) CKD (chronic kidney disease) Code(s): N18.9 - CHRONIC KIDNEY DISEASE, UNSPECIFIED (2) [place] (acute kidney injury) Code(s): N17.9 - ACUTE KIDNEY FAILURE, UNSPECIFIED (3) HTN (hypertension) Code(s): I10 - ESSENTIAL (PRIMARY) HYPERTENSION (4) Influenza A Code(s): J10.1 - FLU DUE TO OTH IDENT INFLUENZA VIRUS W OTH RESP MANIFEST (5) Prostate cancer Code(s): C61 - MALIGNANT NEOPLASM OF PROSTATE Assessment/Plan This is an 88 y/o male admitted with fever and found to have Influenza A. Has h/o HTN, CA prostate, Cardiac disease. beinf f/u elsewhere. [place] possibly superimposed on CKD. The acute renal failure related to altered Hemodynamics in the setting of Influenza and possible volume depletion. Reviewed Medications. Will reduce the dose of Valsartan. Will reduce the dose of chlorthalidone. Encourage oral fluids. Will get basic w/u. Monitor the renal functions with you. Thank you. Sonja Stern MD
--- NOTE | 2018-07-11 15:30 | PN ---
Progress Note, Physician Chief Complaint: AWAKE ALERT PATIENT SEEN AND EXAMINED NO NEW EVENTS - Current Medication List Current Medications: Active Medications Aspirin (Asa -) 81 mg PO DAILY [facility] Last Admin: 07/11/18 10:08 Dose: 81 mg Chlorthalidone (Hygroton -) 12.5 mg PO DAILY [facility] Heparin Sodium (Porcine) (Heparin -) 5,000 unit SQ BID [facility] Last Admin: 07/11/18 10:09 Dose: 5,000 unit Hydralazine HCl (Apresoline -) 50 mg PO DAILY [facility] Last Admin: 07/11/18 10:08 Dose: 50 mg Multivitamins/Minerals/Vitamin C (Tab-A-Vit -) 1 tab PO DAILY [facility] Last Admin: 07/11/18 10:08 Dose: 1 tab Non-Formulary Medication (Enzalutamide [Xtandi]) 80 mg PO BID [facility] Oseltamivir Phosphate (Tamiflu -) 30 mg PO DAILY [facility] Stop: 07/16/18 09:59 Last Admin: 07/11/18 10:09 Dose: 30 mg Ranolazine (Ranexa -) 500 mg PO BID [facility] Last Admin: 07/11/18 10:08 Dose: 500 mg Tamsulosin HCl (Flomax -) 0.4 mg PO DAILY@0830 [facility] Last Admin: 07/11/18 10:09 Dose: 0.4 mg Valsartan (Diovan -) 160 mg PO DAILY [facility] - Objective Vital Signs: Vital Signs Temperature 98.3 F 07/11/18 10:00 Pulse Rate 77 07/11/18 10:00 Respiratory Rate 18 07/11/18 10:00 Blood Pressure 133/60 07/11/18 10:00 O2 Sat by Pulse Oximetry (%) 100 07/11/18 09:00 Constitutional: Yes: No Distress Eyes: Yes: WNL HENT: Yes: WNL Neck: Yes: WNL Cardiovascular: Yes: Regular Rate and Rhythm Respiratory: Yes: Wheezes Gastrointestinal: Yes: Soft Genitourinary: Yes: WNL Musculoskeletal: Yes: Muscle Weakness Extremities: Yes: Other Edema: No Peripheral Pulses WNL: Yes Integumentary: Yes: WNL Wound/Incision: Yes: Clean/Dry Neurological: Yes: WNL ...Motor Strength: WNL Psychiatric: Yes: WNL Labs: CBC, BMP 07/11/18 05:25 07/11/18 05:25 INR, PTT INR 1.13 (0.83-1.09) H 07/09/18 15:50 Problem List - Problems (1) Abnormal chest xray Code(s): R93.89 - ABNORMAL FINDINGS ON DX [facility] BODY STRUCTURES (2) [place] (acute kidney injury) Code(s): N17.9 - ACUTE KIDNEY FAILURE, UNSPECIFIED (3) CAD (coronary artery disease) Code(s): I25.10 - ATHSCL HEART DISEASE OF [place] CORONARY ARTERY W/O ANG PCTRS (4) CKD (chronic kidney disease) Code(s): N18.9 - CHRONIC KIDNEY DISEASE, UNSPECIFIED (5) Elevated troponin Code(s): R74.8 - ABNORMAL LEVELS OF OTHER SERUM ENZYMES (6) HTN (hypertension) Code(s): I10 - ESSENTIAL (PRIMARY) HYPERTENSION (7) Influenza A Code(s): J10.1 - FLU DUE TO OTH IDENT INFLUENZA VIRUS W OTH RESP MANIFEST (8) Prostate cancer Code(s): C61 - MALIGNANT NEOPLASM OF PROSTATE Assessment/Plan RENAL/PULM EVAL TAMIFLU IVF MONITOR ON TELE ISOLATION ROOM OOB TO CHAIR DVT PROPHYLAXIS
[2018-07-12 08:18] LABS: ALBUMIN 2.9 g/dl (3.4-5.0); ALK PHOS 54 U/L (45-117); ANION GAP 10 MMOL/L (8-16); BILIRUBIN,TOTAL 0.4 mg/dL (0.2-1); BLOOD UREA NITROGEN 52 mg/dL (7-18); CALCIUM 7.9 mg/dL (8.5-10.1); CHLORIDE 103 mmol/L (98-107); CO2 24 mmol/L (21-32); CREATININE 2.7 mg/dL (0.55-1.3); GLUCOSE,RANDOM 97 mg/dL (74-106); POTASSIUM 3.8 mmol/L (3.5-5.1); SGOT/AST 47 U/L (15-37); SGPT/ALT 24 U/L (13-61); SODIUM 137 mmol/L (136-145); TOT PROT 6.2 g/dl (6.4-8.2)
[2018-07-12] MEDS ORDERED: VALSARTAN 160 MG TABLET (UD) PO SCH (10:00)
--- NOTE | 2018-07-12 10:40 | PN ---
Progress Note, Physician History of Present Illness: No events Tele: NSR 70/min - Current Medication List Current Medications: Active Medications Aspirin (Asa -) 81 mg PO DAILY [facility] Last Admin: 07/11/18 10:08 Dose: 81 mg Chlorthalidone (Hygroton -) 12.5 mg PO DAILY [facility] Heparin Sodium (Porcine) (Heparin -) 5,000 unit SQ BID [facility] Last Admin: 07/11/18 21:54 Dose: 5,000 unit Hydralazine HCl (Apresoline -) 50 mg PO DAILY [facility] Last Admin: 07/11/18 10:08 Dose: 50 mg Multivitamins/Minerals/Vitamin C (Tab-A-Vit -) 1 tab PO DAILY [facility] Last Admin: 07/11/18 10:08 Dose: 1 tab Non-Formulary Medication (Enzalutamide [Xtandi]) 80 mg PO BID [facility] Oseltamivir Phosphate (Tamiflu -) 30 mg PO DAILY [facility] Stop: 07/16/18 09:59 Last Admin: 07/11/18 10:09 Dose: 30 mg Ranolazine (Ranexa -) 500 mg PO BID [facility] Last Admin: 07/11/18 21:54 Dose: 500 mg Tamsulosin HCl (Flomax -) 0.4 mg PO DAILY@0830 [facility] Last Admin: 07/11/18 10:09 Dose: 0.4 mg Valsartan (Diovan -) 160 mg PO DAILY [facility] - Objective Vital Signs: Vital Signs Temperature 98.5 F 07/12/18 06:00 Pulse Rate 72 07/12/18 06:00 Respiratory Rate 18 07/12/18 06:00 Blood Pressure 154/75 07/12/18 06:00 O2 Sat by Pulse Oximetry (%) 98 07/11/18 21:00 Constitutional: Yes: No Distress Eyes: Yes: WNL HENT: Yes: WNL Neck: Yes: WNL Cardiovascular: Yes: Regular Rate and Rhythm Respiratory: Yes: CTA Bilaterally Gastrointestinal: Yes: Normal Bowel Sounds Musculoskeletal: Yes: WNL Extremities: Yes: WNL Edema: No Labs: CBC, BMP 07/11/18 05:25 07/12/18 05:50 INR, PTT INR 1.13 (0.83-1.09) H 07/09/18 15:50 Assessment/Plan a/p: 88 m hx htn, angina, here with weakness, fever, found to have flu. flu: -tx per pmd/ID htn: -resume home meds and monitor cad, angina: -no signs acs here, borderline trop with flat trend, nl ckmb, not c/w acs -Echo report reviewed: LVEF 55-60%. No significant valvular abnormality -cont home meds sri/ckd: monitor cr trend 2/3: Creat 2.7 today, Hold ARB and start Amlodipine for BP control
[2018-07-12] MEDS: ASPIRIN 81 MG CHEWABLE TABLETS PO SCH (10:49)
[2018-07-12] MEDS: MULTIVITAMINS (DAILY MVI) TABLET (FP) PO SCH (10:49)
[2018-07-12] MEDS: TAMSULOSIN HCL 0.4 MG CAP PO SCH (10:49)
[2018-07-12] MEDS: CHLORTHALIDONE 25 MG TABLET PO SCH (10:50)
[2018-07-12] MEDS: hydrALAZINE HCL 50 MG TABLET (FP) PO SCH (10:50)
[2018-07-12] MEDS: HEPARIN NA (PORCINE) 5,000 UNITS/ML 1ML VIAL SQ SCH ×2 (10:50→21:47)
[2018-07-12] MEDS: OSELTAMIVIR PHOSPHATE 30 MG CAPSULE PO SCH (11:01)
[2018-07-12] MEDS: RANOLAZINE E.R. 500 MG TABLET (FP) PO SCH ×2 (11:01→21:47)
--- NOTE | 2018-07-12 11:18 | PN ---
Progress Note, Physician Chief Complaint: AWAKE ALERT FEELING BETTER - Current Medication List Current Medications: Active Medications Amlodipine Besylate (Norvasc -) 10 mg PO DAILY [facility] Aspirin (Asa -) 81 mg PO DAILY [facility] Last Admin: 07/12/18 10:49 Dose: 81 mg Chlorthalidone (Hygroton -) 12.5 mg PO DAILY [facility] Last Admin: 07/12/18 10:50 Dose: 12.5 mg Heparin Sodium (Porcine) (Heparin -) 5,000 unit SQ BID [facility] Last Admin: 07/12/18 10:50 Dose: 5,000 unit Hydralazine HCl (Apresoline -) 50 mg PO DAILY [facility] Last Admin: 07/12/18 10:50 Dose: 50 mg Multivitamins/Minerals/Vitamin C (Tab-A-Vit -) 1 tab PO DAILY [facility] Last Admin: 07/12/18 10:49 Dose: 1 tab Non-Formulary Medication (Enzalutamide [Xtandi]) 80 mg PO BID [facility] Oseltamivir Phosphate (Tamiflu -) 30 mg PO DAILY [facility] Stop: 07/16/18 09:59 Last Admin: 07/12/18 11:01 Dose: 30 mg Ranolazine (Ranexa -) 500 mg PO BID [facility] Last Admin: 07/12/18 11:01 Dose: 500 mg Tamsulosin HCl (Flomax -) 0.4 mg PO DAILY@0830 [facility] Last Admin: 07/12/18 10:49 Dose: 0.4 mg - Objective Vital Signs: Vital Signs Temperature 98.5 F 07/12/18 06:00 Pulse Rate 72 07/12/18 06:00 Respiratory Rate 18 07/12/18 06:00 Blood Pressure 154/75 07/12/18 06:00 O2 Sat by Pulse Oximetry (%) 98 07/11/18 21:00 Constitutional: Yes: No Distress Eyes: Yes: WNL HENT: Yes: WNL Neck: Yes: WNL Cardiovascular: Yes: WNL Respiratory: Yes: Diminished Gastrointestinal: Yes: WNL Genitourinary: Yes: WNL Musculoskeletal: Yes: WNL Edema: No Peripheral Pulses WNL: Yes Integumentary: Yes: WNL Wound/Incision: Yes: Clean/Dry Neurological: Yes: WNL ...Motor Strength: WNL Psychiatric: Yes: WNL Labs: CBC, BMP 07/11/18 05:25 07/12/18 05:50 INR, PTT INR 1.13 (0.83-1.09) H 07/09/18 15:50 Problem List - Problems (1) Abnormal chest xray Code(s): R93.89 - ABNORMAL FINDINGS ON DX IMAGING OF OT BODY STRUCTURES (2) [place] (acute kidney injury) Code(s): N17.9 - ACUTE KIDNEY FAILURE, UNSPECIFIED (3) CAD (coronary artery disease) Code(s): I25.10 - ATHSCL HEART DISEASE OF [place] CORONARY ARTERY W/O ANG PCTRS (4) CKD (chronic kidney disease) Code(s): N18.9 - CHRONIC KIDNEY DISEASE, UNSPECIFIED (5) Elevated troponin Code(s): R74.8 - ABNORMAL LEVELS OF OTHER SERUM ENZYMES (6) HTN (hypertension) Code(s): I10 - ESSENTIAL (PRIMARY) HYPERTENSION (7) Influenza A Code(s): J10.1 - FLU DUE TO OTH IDENT INFLUENZA VIRUS W OTH RESP MANIFEST (8) Prostate cancer Code(s): C61 - MALIGNANT NEOPLASM OF PROSTATE Assessment/Plan RENAL/PULM EVAL TAMIFLU IVF MONITOR ON TELE ISOLATION ROOM OOB TO CHAIR DVT PROPHYLAXIS
--- NOTE | 2018-07-12 12:12 | CON.PULM ---
Consult Consult Specialty:: PULM/CCM Referred by:: SURAJ Reason for Consultation:: SOB - History of Present Illness Chief Complaint: SOB History of Present Illness: 88 M, admitted via the ER due to dizziness and subsequent fall at home. Found to be influenza positive. Noted positive troponin as well. No apparent travel history. No overt fever or chills. No reported night sweats or hemoptysis. CXR: right hilar fullness / non-specific bilateral infiltrates - History Source History Provided By: Medical Record Limitations to Obtaining History: Language Barrier - Past Medical History Pulmonary: Yes: Bronchitis. No: Cancer, COPD, O2 Dependent, Previously Intubated, Pulmonary Embolus, Pulmonary Fibrosis, Sleep Apnea Renal/: Yes: Renal Inusuff, BPH - Alcohol/Substance Use Hx Alcohol Use: No - Smoking History Smoking history: Former smoker Have you smoked in the past 12 months: No Home Medications - Allergies Allergies/Adverse Reactions: Allergies Allergy/AdvReac Type Severity Reaction Status Date / Time No Known Allergies Allergy Verified 07/09/18 16:25 - Home Medications Home Medications: Ambulatory Orders Alfuzosin HCl [Uroxatral] 10 mg PO DAILY 07/09/18 Aspirin 81 mg PO DAILY 07/09/18 Chlorthalidone 25 mg PO DAILY 07/09/18 Enzalutamide [Xtandi] 80 mg PO BID 07/09/18 Hydralazine HCl 50 mg PO DAILY 07/09/18 Multivitamin [Multiple Vitamins] 1 each PO DAILY 07/09/18 Olmesartan Medoxomil [Benicar (Nf)] 40 mg PO DAILY 07/09/18 Ranolazine [Ranexa] 500 mg PO BID 07/09/18 Review of Systems - Review of Systems Constitutional: reports: Malaise. denies: Chills, Fever, Night Sweats Eyes: reports: No Symptoms HENT: reports: No Symptoms Neck: reports: No Symptoms Cardiovascular: denies: Chest Pain, Edema, Palpitations, Shortness of Breath Respiratory: denies: Cough, Hemoptysis, Orthopnea, Snoring, SOB, SOB on Exertion , Wheezing Gastrointestinal: reports: No Symptoms Genitourinary: reports: No Symptoms Breasts: reports: No Symptoms Reported Musculoskeletal: reports: No Symptoms Integumentary: reports: No Symptoms Neurological: reports: No Symptoms Endocrine: reports: No Symptoms Hematology/Lymphatic: reports: No Symptoms Psychiatric: reports: No Symptoms Physical Exam Vital Sings: Vital Signs Temperature 98.5 F 07/12/18 06:00 Pulse Rate 72 07/12/18 06:00 Respiratory Rate 18 07/12/18 06:00 Blood Pressure 154/75 07/12/18 06:00 O2 Sat by Pulse Oximetry (%) 98 07/11/18 21:00 Constitutional: Yes: No Distress Eyes: Yes: Conjunctiva Clear, EOM Intact HENT: Yes: Atraumatic, Normocephalic Neck: Yes: Supple, Trachea Midline Cardiovascular: Yes: Regular Rate and Rhythm Respiratory: Yes: Cough, Diminished, Rhonchi. No: Accessory Muscle Use, Rales, Stridor, Tachypnea, Wheezes ...Inspection: Yes: WNL ...Clubbing: No Gastrointestinal: Yes: Normal Bowel Sounds, Soft Renal/: Yes: WNL Musculoskeletal: Yes: WNL Extremities: Yes: WNL Edema: No Peripheral Pulses WNL: Yes Integumentary: Yes: WNL Neurological: Yes: Alert, Oriented ...Motor Strength: WNL Psychiatric: Yes: WNL, Alert, Oriented Labs: CBC, BMP 07/11/18 05:25 07/12/18 05:50 Imaging - Results Chest X-ray: Report Reviewed, Image Reviewed Problem List - Problems (1) [place] (acute kidney injury) Code(s): N17.9 - ACUTE KIDNEY FAILURE, UNSPECIFIED (2) Abnormal chest xray Code(s): R93.89 - ABNORMAL FINDINGS ON DX IMAGING OF OT BODY STRUCTURES (3) CAD (coronary artery disease) Code(s): I25.10 - ATHSCL HEART DISEASE OF [place] CORONARY ARTERY W/O ANG PCTRS (4) CKD (chronic kidney disease) Code(s): N18.9 - CHRONIC KIDNEY DISEASE, UNSPECIFIED (5) Elevated troponin Code(s): R74.8 - ABNORMAL LEVELS OF OTHER SERUM ENZYMES (6) HTN (hypertension) Code(s): I10 - ESSENTIAL (PRIMARY) HYPERTENSION (7) Influenza A Code(s): J10.1 - FLU DUE TO OTH IDENT INFLUENZA VIRUS W OTH RESP MANIFEST (8) Prostate cancer Code(s): C61 - MALIGNANT NEOPLASM OF PROSTATE Assessment/Plan CT chest w/o contrast O2 as needed Tamiflu adjusted for CrCl Monitor renal function Monitor off ABX Monitor off steroids VTE prophylaxis Thank you. Dr Davidson
[2018-07-12] MEDS: amLODIPine BESYLATE 10 MG TABLET (FP) PO SCH (12:53)
--- NOTE | 2018-07-12 12:56 | PN ---
Progress Note, Physician Chief Complaint: Patient seen and examined in his room. Offers no specific complaints. Maintains good urine output. History of Present Illness: 88 m history of hypertension, Angina, CA prostate admitted with fever, and has Influenza. No shortness of breath, orthopnea, chest pain. The patient on Tamiflu. Found to have rising BUN/ Cr. - Current Medication List Current Medications: Active Medications Amlodipine Besylate (Norvasc -) 10 mg PO DAILY [facility] Last Admin: 07/12/18 12:53 Dose: 10 mg Aspirin (Asa -) 81 mg PO DAILY [facility] Last Admin: 07/12/18 10:49 Dose: 81 mg Chlorthalidone (Hygroton -) 12.5 mg PO DAILY [facility] Last Admin: 07/12/18 10:50 Dose: 12.5 mg Heparin Sodium (Porcine) (Heparin -) 5,000 unit SQ BID [facility] Last Admin: 07/12/18 10:50 Dose: 5,000 unit Hydralazine HCl (Apresoline -) 50 mg PO DAILY [facility] Last Admin: 07/12/18 10:50 Dose: 50 mg Multivitamins/Minerals/Vitamin C (Tab-A-Vit -) 1 tab PO DAILY [facility] Last Admin: 07/12/18 10:49 Dose: 1 tab Non-Formulary Medication (Enzalutamide [Xtandi]) 80 mg PO BID [facility] Oseltamivir Phosphate (Tamiflu -) 30 mg PO DAILY [facility] Stop: 07/16/18 09:59 Last Admin: 07/12/18 11:01 Dose: 30 mg Ranolazine (Ranexa -) 500 mg PO BID [facility] Last Admin: 07/12/18 11:01 Dose: 500 mg Tamsulosin HCl (Flomax -) 0.4 mg PO DAILY@0830 [facility] Last Admin: 07/12/18 10:49 Dose: 0.4 mg - Objective Vital Signs: Vital Signs Temperature 98.7 F 07/12/18 10:00 Pulse Rate 77 07/12/18 10:00 Respiratory Rate 18 07/12/18 10:00 Blood Pressure 112/61 07/12/18 10:00 O2 Sat by Pulse Oximetry (%) 98 07/12/18 09:00 Constitutional: Yes: Well Nourished, Calm Eyes: Yes: Conjunctiva Clear HENT: Yes: Normocephalic Neck: Yes: Trachea Midline Cardiovascular: Yes: Regular Rate and Rhythm, S1, S2 Respiratory: Yes: Regular, Rales, Rhonchi Gastrointestinal: Yes: Normal Bowel Sounds, Soft Edema: No Labs: CBC, BMP 07/11/18 05:25 07/12/18 05:50 INR, PTT INR 1.13 (0.83-1.09) H 07/09/18 15:50 Problem List - Problems (1) CKD (chronic kidney disease) Code(s): N18.9 - CHRONIC KIDNEY DISEASE, UNSPECIFIED (2) [place] (acute kidney injury) Code(s): N17.9 - ACUTE KIDNEY FAILURE, UNSPECIFIED (3) HTN (hypertension) Code(s): I10 - ESSENTIAL (PRIMARY) HYPERTENSION (4) Influenza A Code(s): J10.1 - FLU DUE TO OTH IDENT INFLUENZA VIRUS W OTH RESP MANIFEST (5) Prostate cancer Code(s): C61 - MALIGNANT NEOPLASM OF PROSTATE Assessment/Plan This is an 88 y/o male admitted with fever and found to have Influenza A. Has h/o HTN, CA prostate, Cardiac disease. beinf f/u elsewhere. [place]TON possibly superimposed on CKD. The Azotemia is slightly worse compared to yesterday. The acute renal failure related to altered Hemodynamics in the setting of Influenza and possible volume depletion. The hemodynamic inprovement from modification of the medications might lag by several days. Dose of Valsartan and Chlorthalidone has been reduced. Encourage oral fluids. Will get basic w/u. Monitor the renal functions with you. The Renal functions expected to improve slowly and settle at his baseline. Should consider avoiding IV Radiocontrast. Thank you. Sonja Stern MD
[2018-07-12 14:19] LABS: BASO % 0.5 % (0-2.0); EOS % 0.5 % (0-4.5); HEMOGLOBIN 10.3 GM/dL (11.7-16.9); LYMPH % 51.7 % (8-40); MCH 27.9 pg (25.7-33.7); MCHC 33.4 g/dl (32.0-35.9); MEAN CELL VOLUME 83.6 fl (80-96); MEAN PLT VOLUME 8.2 fl (7.5-11.1); MONO % 12.5 % (3.8-10.2); NEUT % 34.8 % (42.8-82.8); PLATELET COUNT 174 K/MM3 (134-434); RBC 3.71 M/mm3 (4.00-5.60); RDW 13.3 % (11.9-15.9); WHITE BLOOD COUNT 2.8 K/mm3 (4.0-10.0)
[2018-07-13 06:40] LABS: HEMATOCRIT 28.8 % (35.4-49); HEMOGLOBIN 10.1 GM/dL (11.7-16.9); MCH 28.9 pg (25.7-33.7); MEAN CELL VOLUME 82.4 fl (80-96); MEAN PLT VOLUME 8.3 fl (7.5-11.1); PLATELET COUNT 164 K/MM3 (134-434); RBC 3.49 M/mm3 (4.00-5.60); RDW 13.2 % (11.9-15.9); WHITE BLOOD COUNT 2.6 K/mm3 (4.0-10.0)
[2018-07-13 07:15] LABS: ANION GAP 9 MMOL/L (8-16); BLOOD UREA NITROGEN 45 mg/dL (7-18); CALCIUM 7.9 mg/dL (8.5-10.1); CHLORIDE 104 mmol/L (98-107); CO2 26 mmol/L (21-32); CREATININE 2.4 mg/dL (0.55-1.3); GLUCOSE,RANDOM 100 mg/dL (74-106); SODIUM 138 mmol/L (136-145)
--- NOTE | 2018-07-13 10:15 | PN ---
Progress Note, Physician Chief Complaint: flu History of Present Illness: denies cp, sob. no coughing no palipitations - Current Medication List Current Medications: Active Medications Amlodipine Besylate (Norvasc -) 10 mg PO DAILY [facility] Last Admin: 07/12/18 12:53 Dose: 10 mg Aspirin (Asa -) 81 mg PO DAILY [facility] Last Admin: 07/12/18 10:49 Dose: 81 mg Chlorthalidone (Hygroton -) 12.5 mg PO DAILY [facility] Last Admin: 07/12/18 10:50 Dose: 12.5 mg Heparin Sodium (Porcine) (Heparin -) 5,000 unit SQ BID [facility] Last Admin: 07/12/18 21:47 Dose: 5,000 unit Hydralazine HCl (Apresoline -) 50 mg PO DAILY [facility] Last Admin: 07/12/18 10:50 Dose: 50 mg Multivitamins/Minerals/Vitamin C (Tab-A-Vit -) 1 tab PO DAILY [facility] Last Admin: 07/12/18 10:49 Dose: 1 tab Non-Formulary Medication (Enzalutamide [Xtandi]) 80 mg PO BID [facility] Oseltamivir Phosphate (Tamiflu -) 30 mg PO DAILY [facility] Stop: 07/16/18 09:59 Last Admin: 07/12/18 11:01 Dose: 30 mg Ranolazine (Ranexa -) 500 mg PO BID [facility] Last Admin: 07/12/18 21:47 Dose: 500 mg Tamsulosin HCl (Flomax -) 0.4 mg PO DAILY@0830 [facility] Last Admin: 07/12/18 10:49 Dose: 0.4 mg - Objective Vital Signs: Vital Signs Temperature 98.8 F 07/13/18 02:00 Pulse Rate 78 07/13/18 08:00 Respiratory Rate 18 07/13/18 08:00 Blood Pressure 115/60 07/13/18 08:00 O2 Sat by Pulse Oximetry (%) 96 07/12/18 21:00 Constitutional: Yes: Well Nourished, No Distress, Calm Cardiovascular: Yes: Regular Rate and Rhythm, S1, S2. No: Gallop, Murmur Respiratory: Yes: Regular, CTA Bilaterally. No: Accessory Muscle Use, Rales, Rhonchi, Wheezes Extremities: No: Cold Edema: No Neurological: Yes: Alert. No: Seizure Psychiatric: No: Agitated Labs: CBC, BMP 07/13/18 05:30 07/13/18 05:30 INR, PTT INR 1.13 (0.83-1.09) H 07/09/18 15:50 Assessment/Plan cxr: no chf ecg: sr no ischemic changes, nl qtc Echo 06/27: nl LVEF. nl RV. no signif valve abnormality tele: NSR, artifact a/p: 88 m hx htn, angina, here with weakness, fever, found to have flu. flu: -tx per pmd/ID htn: -controlled -cont current meds angina: -carries this dx, details of prior CAD (if any) unknown. follows with [facility] -no signs acs here, indeterminate trop with flat trend (0.1-0.3 serially) nl ckmb = not c/w acs -normal LVSF here -no angina sx's here -cont home meds incl Ranexa as QT normal here--f/u as outpt with outside cardio sri/ckd: -no baseline creat available -renal fxn improving here -ARB has [place] held, thiazide continued -renal following D/C TELE
[2018-07-13] MEDS: TAMSULOSIN HCL 0.4 MG CAP PO SCH (10:27)
[2018-07-13] MEDS: ASPIRIN 81 MG CHEWABLE TABLETS PO SCH (10:27)
[2018-07-13] MEDS: OSELTAMIVIR PHOSPHATE 30 MG CAPSULE PO SCH (10:28)
[2018-07-13] MEDS: CHLORTHALIDONE 25 MG TABLET PO SCH (10:28)
[2018-07-13] MEDS: amLODIPine BESYLATE 10 MG TABLET (FP) PO SCH (10:33)
[2018-07-13] MEDS: hydrALAZINE HCL 50 MG TABLET (FP) PO SCH (10:33)
[2018-07-13] MEDS: RANOLAZINE E.R. 500 MG TABLET (FP) PO SCH ×2 (10:33→22:21)
[2018-07-13] MEDS: HEPARIN NA (PORCINE) 5,000 UNITS/ML 1ML VIAL SQ SCH ×2 (10:34→22:21)
[2018-07-13] MEDS: MULTIVITAMINS (DAILY MVI) TABLET (FP) PO SCH (10:34)
--- NOTE | 2018-07-13 11:10 | PN ---
Progress Note, Physician Chief Complaint: Influenza A positive Elevated troponin History of Present Illness: Previous notes and events reviewed awake and alert NAD denies chest pain, SOB - Current Medication List Current Medications: Active Medications Amlodipine Besylate (Norvasc -) 10 mg PO DAILY [facility] Last Admin: 07/13/18 10:33 Dose: 10 mg Aspirin (Asa -) 81 mg PO DAILY [facility] Last Admin: 07/13/18 10:27 Dose: 81 mg Chlorthalidone (Hygroton -) 12.5 mg PO DAILY [facility] Last Admin: 07/13/18 10:28 Dose: 12.5 mg Heparin Sodium (Porcine) (Heparin -) 5,000 unit SQ BID [facility] Last Admin: 07/13/18 10:34 Dose: 5,000 unit Hydralazine HCl (Apresoline -) 50 mg PO DAILY [facility] Last Admin: 07/13/18 10:33 Dose: 50 mg Multivitamins/Minerals/Vitamin C (Tab-A-Vit -) 1 tab PO DAILY [facility] Last Admin: 07/13/18 10:34 Dose: 1 tab Non-Formulary Medication (Enzalutamide [Xtandi]) 80 mg PO BID [facility] Oseltamivir Phosphate (Tamiflu -) 30 mg PO DAILY [facility] Stop: 07/16/18 09:59 Last Admin: 07/13/18 10:28 Dose: 30 mg Ranolazine (Ranexa -) 500 mg PO BID [facility] Last Admin: 07/13/18 10:33 Dose: 500 mg Tamsulosin HCl (Flomax -) 0.4 mg PO DAILY@0830 [facility] Last Admin: 07/13/18 10:27 Dose: 0.4 mg - Objective Vital Signs: Vital Signs Temperature 98.8 F 07/13/18 02:00 Pulse Rate 78 07/13/18 08:00 Respiratory Rate 18 07/13/18 08:00 Blood Pressure 115/60 07/13/18 08:00 O2 Sat by Pulse Oximetry (%) 96 07/12/18 21:00 Constitutional: Yes: Well Nourished, No Distress, Calm Eyes: Yes: Conjunctiva Clear HENT: Yes: Normocephalic Cardiovascular: Yes: Regular Rate and Rhythm Respiratory: Yes: Diminished Gastrointestinal: Yes: Normal Bowel Sounds, Soft Musculoskeletal: Yes: WNL Extremities: Yes: WNL Edema: No Neurological: Yes: Alert, Oriented Psychiatric: Yes: Alert, Oriented Labs: CBC, BMP 07/13/18 05:30 07/13/18 05:30 INR, PTT INR 1.13 (0.83-1.09) H 07/09/18 15:50 Microbiology 07/09/18 15:00 Blood Culture - Preliminary Blood - Peripheral Venous NO GROWTH OBTAINED AFTER 72 HOURS, INCUBATION TO CONTINUE FOR 2 DAYS. 07/09/18 15:50 Blood Culture - Preliminary Blood - Peripheral Venous NO GROWTH OBTAINED AFTER 72 HOURS, INCUBATION TO CONTINUE FOR 2 DAYS. <Susana Leal - Last Filed: 07/13/18 11:05> - Current Medication List Current Medications: Active Medications Amlodipine Besylate (Norvasc -) 10 mg PO DAILY [facility] Last Admin: 07/13/18 10:33 Dose: 10 mg Aspirin (Asa -) 81 mg PO DAILY [facility] Last Admin: 07/13/18 10:27 Dose: 81 mg Chlorthalidone (Hygroton -) 12.5 mg PO DAILY [facility] Last Admin: 07/13/18 10:28 Dose: 12.5 mg Heparin Sodium (Porcine) (Heparin -) 5,000 unit SQ BID [facility] Last Admin: 07/13/18 10:34 Dose: 5,000 unit Hydralazine HCl (Apresoline -) 50 mg PO DAILY [facility] Last Admin: 07/13/18 10:33 Dose: 50 mg Ceftriaxone Sodium 1 gm/ (Dextrose) 50 mls @ 100 mls/hr IVPB DAILY [facility]; Protocol Multivitamins/Minerals/Vitamin C (Tab-A-Vit -) 1 tab PO DAILY [facility] Last Admin: 07/13/18 10:34 Dose: 1 tab Non-Formulary Medication (Enzalutamide [Xtandi]) 80 mg PO BID [facility] Oseltamivir Phosphate (Tamiflu -) 30 mg PO DAILY [facility] Stop: 07/16/18 09:59 Last Admin: 07/13/18 10:28 Dose: 30 mg Ranolazine (Ranexa -) 500 mg PO BID [facility] Last Admin: 07/13/18 10:33 Dose: 500 mg Tamsulosin HCl (Flomax -) 0.4 mg PO DAILY@0830 [facility] Last Admin: 07/13/18 10:27 Dose: 0.4 mg - Objective Vital Signs: Vital Signs Temperature 98.3 F 07/13/18 14:00 Pulse Rate 77 07/13/18 14:00 Respiratory Rate 20 07/13/18 14:00 Blood Pressure 114/70 07/13/18 14:00 O2 Sat by Pulse Oximetry (%) 96 07/12/18 21:00 Labs: CBC, BMP 07/13/18 05:30 07/13/18 05:30 INR, PTT INR 1.13 (0.83-1.09) H 07/09/18 15:50 <Emiliana Dominguez - Last Filed: 07/13/18 17:06> Problem List - Problems (1) Influenza A Assessment/Plan: -tamiflu 30mg daily x 7d -respiratory isolation -tylenol for temp >100F Code(s): J10.1 - FLU DUE TO OTH IDENT INFLUENZA VIRUS W OTH RESP MANIFEST (2) Elevated troponin Assessment/Plan: -troponin 0.14 -will monitor for down trend -continue tele monitoring -cardiology on board Code(s): R74.8 - ABNORMAL LEVELS OF OTHER SERUM ENZYMES (3) HTN (hypertension) Assessment/Plan: -continue with chlorthalidone, diovan -low Na diet Code(s): I10 - ESSENTIAL (PRIMARY) HYPERTENSION (4) CAD (coronary artery disease) Assessment/Plan: -cont Ranexa and asa -echo show EF 55-60% -cardiology on board -continue tele monitoring Code(s): I25.10 - ATHSCL HEART DISEASE OF [place] CORONARY ARTERY W/O ANG PCTRS (5) [place] (acute kidney injury) Assessment/Plan: -BUN/Cr elevated, will continue to trend -renal on board Code(s): N17.9 - ACUTE KIDNEY FAILURE, UNSPECIFIED (6) Abnormal chest xray Assessment/Plan: -pulmonary on board -pending Chest CT scan -O2 via NC PRN for SOB, keep SpO2 >90% Code(s): R93.89 - ABNORMAL FINDINGS ON DX IMAGING OF OTH BODY STRUCTURES <Susana Leal - Last Filed: 07/13/18 11:05> - Problems (1) Abnormal chest xray Code(s): R93.89 - ABNORMAL FINDINGS ON DX IMAGING OF OTH BODY STRUCTURES (2) [place] (acute kidney injury) Code(s): N17.9 - ACUTE KIDNEY FAILURE, UNSPECIFIED (3) CAD (coronary artery disease) Code(s): I25.10 - ATHSCL HEART DISEASE OF [place] CORONARY ARTERY W/O ANG PCTRS (4) CKD (chronic kidney disease) Code(s): N18.9 - CHRONIC KIDNEY DISEASE, UNSPECIFIED (5) Elevated troponin Code(s): R74.8 - ABNORMAL LEVELS OF OTHER SERUM ENZYMES (6) HTN (hypertension) Code(s): I10 - ESSENTIAL (PRIMARY) HYPERTENSION (7) Influenza A Code(s): J10.1 - FLU DUE TO OTH IDENT INFLUENZA VIRUS W OTH RESP MANIFEST (8) Prostate cancer Code(s): C61 - MALIGNANT NEOPLASM OF PROSTATE <Emiliana Dominguez - Last Filed: 07/13/18 17:06> Assessment/Plan dvt ppx see problem list <Susana Leal - Last Filed: 07/13/18 11:05> PATIENT SEEN AND EXAMINED AND I AGREE WITH ABOVE NOTE <Emiliana Dominguez - Last Filed: 07/13/18 17:06>
--- NOTE | 2018-07-13 13:22 | PN ---
Progress Note, Physician History of Present Illness: PULMONARY ALERT,NO DISTRESS,-CP,-SOB - Current Medication List Current Medications: Active Medications Amlodipine Besylate (Norvasc -) 10 mg PO DAILY [facility] Last Admin: 07/13/18 10:33 Dose: 10 mg Aspirin (Asa -) 81 mg PO DAILY [facility] Last Admin: 07/13/18 10:27 Dose: 81 mg Chlorthalidone (Hygroton -) 12.5 mg PO DAILY [facility] Last Admin: 07/13/18 10:28 Dose: 12.5 mg Heparin Sodium (Porcine) (Heparin -) 5,000 unit SQ BID [facility] Last Admin: 07/13/18 10:34 Dose: 5,000 unit Hydralazine HCl (Apresoline -) 50 mg PO DAILY [facility] Last Admin: 07/13/18 10:33 Dose: 50 mg Multivitamins/Minerals/Vitamin C (Tab-A-Vit -) 1 tab PO DAILY [facility] Last Admin: 07/13/18 10:34 Dose: 1 tab Non-Formulary Medication (Enzalutamide [Xtandi]) 80 mg PO BID [facility] Oseltamivir Phosphate (Tamiflu -) 30 mg PO DAILY [facility] Stop: 07/16/18 09:59 Last Admin: 07/13/18 10:28 Dose: 30 mg Ranolazine (Ranexa -) 500 mg PO BID [facility] Last Admin: 07/13/18 10:33 Dose: 500 mg Tamsulosin HCl (Flomax -) 0.4 mg PO DAILY@0830 [facility] Last Admin: 07/13/18 10:27 Dose: 0.4 mg - Objective Vital Signs: Vital Signs Temperature 98.8 F 07/13/18 02:00 Pulse Rate 78 07/13/18 08:00 Respiratory Rate 18 07/13/18 08:00 Blood Pressure 115/60 07/13/18 08:00 O2 Sat by Pulse Oximetry (%) 96 07/12/18 21:00 Constitutional: Yes: Well Nourished, Calm Eyes: Yes: WNL HENT: Yes: WNL Neck: Yes: WNL Cardiovascular: Yes: Regular Rate and Rhythm, S1, S2 Respiratory: Yes: Rales (BIBASILAR RALES) Gastrointestinal: Yes: Normal Bowel Sounds, Soft Extremities: Yes: WNL Edema: Yes Labs: CBC, BMP 07/13/18 05:30 07/13/18 05:30 INR, PTT INR 1.13 (0.83-1.09) H 07/09/18 15:50 - ....Imaging Cat Scan: Report Reviewed Assessment/Plan Problem List - Problems (1) [place] (acute kidney injury) Code(s): N17.9 - ACUTE KIDNEY FAILURE, UNSPECIFIED (2) Abnormal chest xray Code(s): R93.89 - ABNORMAL FINDINGS ON DX IMAGING OF OT BODY STRUCTURES (3) CAD (coronary artery disease) Code(s): I25.10 - ATHSCL HEART DISEASE OF [place] CORONARY ARTERY W/O ANG PCTRS (4) CKD (chronic kidney disease) Code(s): N18.9 - CHRONIC KIDNEY DISEASE, UNSPECIFIED (5) Elevated troponin Code(s): R74.8 - ABNORMAL LEVELS OF OTHER SERUM ENZYMES (6) HTN (hypertension) Code(s): I10 - ESSENTIAL (PRIMARY) HYPERTENSION (7) Influenza A Code(s): J10.1 - FLU DUE TO OTH IDENT INFLUENZA VIRUS W OTH RESP MANIFEST (8) Prostate cancer Code(s): C61 - MALIGNANT NEOPLASM OF PROSTATE 9 PNEUMONIA Assessment/Plan O2 as needed Tamiflu adjusted for CrCl Monitor renal function ABX Monitor off steroids VTE prophylaxis DR CALDWELL
--- NOTE | 2018-07-13 14:46 | PN ---
Progress Note (short form) - Note Progress Note: ID CONSULT DICTATED ACUTE INFLUENZA A R/O SECONDARY BACTERIAL PNEUMONIA OBTAIN SPUTUM C/S, LEGIONELLA AG EMPIRIC CEFTRIAXONE COMPLETE 5D COURSE TAMIFLU
--- NOTE | 2018-07-13 17:13 | PN ---
Progress Note (short form) - Note Progress Note: Renal follow up for MILTON Pt seen and examined at the bedside continues to have cough making urine no flank pain Vital Signs Temperature 98.3 F 07/13/18 14:00 Pulse Rate 77 07/13/18 14:00 Respiratory Rate 20 07/13/18 14:00 Blood Pressure 114/70 07/13/18 14:00 O2 Sat by Pulse Oximetry (%) 96 07/12/18 21:00 Intake & Output 07/10/18 07/11/18 07/12/18 07/13/18 23:59 23:59 23:59 23:59 Intake Total 760 360 500 10 Output Total 1000 300 500 Balance -240 60 0 10 Weight 91.263 kg 92.533 kg 90.718 kg 90.991 kg NAD RRR CTA soft NT/ND no LE edema CBC, BMP 07/13/18 05:30 07/13/18 05:30 Current Medications Amlodipine Besylate (Norvasc -) 10 mg PO DAILY [facility] Last Admin: 07/13/18 10:33 Dose: 10 mg Aspirin (Asa -) 81 mg PO DAILY [facility] Last Admin: 07/13/18 10:27 Dose: 81 mg Chlorthalidone (Hygroton -) 12.5 mg PO DAILY [facility] Last Admin: 07/13/18 10:28 Dose: 12.5 mg Heparin Sodium (Porcine) (Heparin -) 5,000 unit SQ BID [facility] Last Admin: 07/13/18 10:34 Dose: 5,000 unit Hydralazine HCl (Apresoline -) 50 mg PO DAILY [facility] Last Admin: 07/13/18 10:33 Dose: 50 mg Ceftriaxone Sodium 1 gm/ (Dextrose) 50 mls @ 100 mls/hr IVPB DAILY [facility]; Protocol Multivitamins/Minerals/Vitamin C (Tab-A-Vit -) 1 tab PO DAILY [facility] Last Admin: 07/13/18 10:34 Dose: 1 tab Non-Formulary Medication (Enzalutamide [Xtandi]) 80 mg PO BID [facility] Oseltamivir Phosphate (Tamiflu -) 30 mg PO DAILY [facility] Stop: 07/16/18 09:59 Last Admin: 07/13/18 10:28 Dose: 30 mg Ranolazine (Ranexa -) 500 mg PO BID [facility] Last Admin: 07/13/18 10:33 Dose: 500 mg Tamsulosin HCl (Flomax -) 0.4 mg PO DAILY@0830 [facility] Last Admin: 07/13/18 10:27 Dose: 0.4 mg 88 m history of hypertension, Angina, CA prostate admitted with fever and found to have influenza +/- PNA with MILTON. #MILTON with mild hydroneprhosis Would consider urology evalulation of left hydronephrosis Continue emperic abx Check SHERLY given Hydralazine use Continue Norvasc Abx as per ID Manuel Maloney DO
[2018-07-13] MEDS: CEFTRIAXONE 1 GM in DEXTROSE 5%-WATER - 50 ML IVPB SCH (19:35)
[2018-07-14 06:41] LABS: BASO % 0.8 % (0-2.0); EOS % 1.5 % (0-4.5); HEMATOCRIT 29.5 % (35.4-49); HEMOGLOBIN 10.2 GM/dL (11.7-16.9); MCH 28.6 pg (25.7-33.7); MCHC 34.7 g/dl (32.0-35.9); MEAN CELL VOLUME 82.3 fl (80-96); MEAN PLT VOLUME 8.3 fl (7.5-11.1); MONO % 14.6 % (3.8-10.2); NEUT % 24.1 % (42.8-82.8); PLATELET COUNT 184 K/MM3 (134-434); RBC 3.58 M/mm3 (4.00-5.60); RDW 12.9 % (11.9-15.9); WHITE BLOOD COUNT 2.6 K/mm3 (4.0-10.0)
[2018-07-14 07:27] LABS: ALBUMIN 3.2 g/dl (3.4-5.0); ALK PHOS 65 U/L (45-117); ANION GAP 8 MMOL/L (8-16); BILIRUBIN,TOTAL 0.4 mg/dL (0.2-1); BLOOD UREA NITROGEN 46 mg/dL (7-18); CALCIUM 7.7 mg/dL (8.5-10.1); CHLORIDE 103 mmol/L (98-107); CO2 25 mmol/L (21-32); CREATININE 2.4 mg/dL (0.55-1.3); GLUCOSE,RANDOM 106 mg/dL (74-106); MAGNESIUM 2.1 mg/dL (1.8-2.4); PHOSPHOROUS 3.4 mg/dL (2.5-4.9); SGOT/AST 40 U/L (15-37); SGPT/ALT 26 U/L (13-61); SODIUM 136 mmol/L (136-145)
--- NOTE | 2018-07-14 08:32 | PN ---
Progress Note, Physician History of Present Illness: feels better - Current Medication List Current Medications: Active Medications Amlodipine Besylate (Norvasc -) 10 mg PO DAILY [facility] Last Admin: 07/13/18 10:33 Dose: 10 mg Aspirin (Asa -) 81 mg PO DAILY [facility] Last Admin: 07/13/18 10:27 Dose: 81 mg Chlorthalidone (Hygroton -) 12.5 mg PO DAILY [facility] Last Admin: 07/13/18 10:28 Dose: 12.5 mg Heparin Sodium (Porcine) (Heparin -) 5,000 unit SQ BID [facility] Last Admin: 07/13/18 22:21 Dose: 5,000 unit Hydralazine HCl (Apresoline -) 50 mg PO DAILY [facility] Last Admin: 07/13/18 10:33 Dose: 50 mg Ceftriaxone Sodium 1 gm/ (Dextrose) 50 mls @ 100 mls/hr IVPB DAILY [facility]; Protocol Last Admin: 07/13/18 19:35 Dose: 100 mls/hr Multivitamins/Minerals/Vitamin C (Tab-A-Vit -) 1 tab PO DAILY [facility] Last Admin: 07/13/18 10:34 Dose: 1 tab Non-Formulary Medication (Enzalutamide [Xtandi]) 80 mg PO BID [facility] Oseltamivir Phosphate (Tamiflu -) 30 mg PO DAILY [facility] Stop: 07/16/18 09:59 Last Admin: 07/13/18 10:28 Dose: 30 mg Ranolazine (Ranexa -) 500 mg PO BID [facility] Last Admin: 07/13/18 22:21 Dose: 500 mg Tamsulosin HCl (Flomax -) 0.4 mg PO DAILY@0830 [facility] Last Admin: 07/13/18 10:27 Dose: 0.4 mg - Objective Vital Signs: Vital Signs Temperature 98.3 F 07/14/18 08:19 Pulse Rate 78 07/14/18 08:19 Respiratory Rate 20 07/14/18 08:19 Blood Pressure 139/71 07/14/18 08:19 O2 Sat by Pulse Oximetry (%) 95 07/14/18 08:18 Cardiovascular: Yes: S1, S2 Respiratory: Yes: Rhonchi Gastrointestinal: Yes: Normal Bowel Sounds, Soft Labs: CBC, BMP 07/14/18 05:30 07/14/18 05:30 INR, PTT INR 1.13 (0.83-1.09) H 07/09/18 15:50 Problem List - Problems (1) Pneumonia Assessment/Plan: IV ABX PER ID CULTURES Code(s): J18.9 - PNEUMONIA, UNSPECIFIED ORGANISM (2) Hydronephrosis Assessment/Plan: UROLOGY CONSULT Code(s): N13.30 - UNSPECIFIED HYDRONEPHROSIS (3) Elevated troponin Assessment/Plan: Laboratory Tests 07/10/18 07/11/18 19:00 05:25 Troponin I 0.21 H 0.14 H Code(s): R74.8 - ABNORMAL LEVELS OF OTHER SERUM ENZYMES (4) Influenza A Assessment/Plan: ISOLATION ON TAMIFLU Code(s): J10.1 - FLU DUE TO OTH IDENT INFLUENZA VIRUS W OTH RESP MANIFEST
[2018-07-14] MEDS ORDERED: cefTRIAXone SODIUM 1 GM VIAL ONE (08:39)
[2018-07-14] MEDS ORDERED: DEXTROSE 5%-WATER - 50 ML IVPB ONE (08:39)
--- NOTE | 2018-07-14 08:57 | CON.GU ---
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 Patient denies left flank pain, nausea, vomiting or gross hematuria. Patient denies significant urinary frequency, urgency or nocturia. - History Source History Provided By: Patient, Medical Record Limitations to Obtaining History: No Limitations - Past Medical History Pulmonary: Yes: Bronchitis. No: Cancer, COPD, O2 Dependent, Previously Intubated, Pulmonary Embolus, Pulmonary Fibrosis, Sleep Apnea Renal/: Yes: Renal Inusuff, BPH - Alcohol/Substance Use Hx Alcohol Use: No - Smoking History Smoking history: Former smoker Have you smoked in the past 12 months: No Home Medications - Allergies Allergies/Adverse Reactions: Allergies Allergy/AdvReac Type Severity Reaction Status Date / Time No Known Allergies Allergy Verified 07/09/18 16:25 - Home Medications Home Medications: Ambulatory Orders Alfuzosin HCl [Uroxatral] 10 mg PO DAILY 07/09/18 Aspirin 81 mg PO DAILY 07/09/18 Chlorthalidone 25 mg PO DAILY 07/09/18 Enzalutamide [Xtandi] 80 mg PO BID 07/09/18 Hydralazine HCl 50 mg PO DAILY 07/09/18 Multivitamin [Multiple Vitamins] 1 each PO DAILY 07/09/18 Olmesartan Medoxomil [Benicar (Nf)] 40 mg PO DAILY 07/09/18 Ranolazine [Ranexa] 500 mg PO BID 07/09/18 Physical Exam- Vital Signs: Vital Signs Temperature 98.3 F 07/14/18 08:19 Pulse Rate 78 07/14/18 08:19 Respiratory Rate 20 07/14/18 08:19 Blood Pressure 139/71 07/14/18 08:19 O2 Sat by Pulse Oximetry (%) 95 07/14/18 08:18 Constitutional: Yes: Well Nourished, No Distress, Calm Eyes: Yes: WNL, Conjunctiva Clear, EOM Intact HENT: Yes: WNL, Atraumatic, Normocephalic Neck: Yes: WNL, Supple, Trachea Midline Respiratory: Yes: WNL, Regular Gastrointestinal: Yes: WNL, Normal Bowel Sounds Renal/: Yes: WNL Kidneys: Yes: WNL Pelvis: Yes: WNL Testicles: Yes: WNL Scrotum: Yes: WNL Penis: Yes: WNL Prostate Exam: Yes: WNL Labs: CBC, BMP 07/14/18 05:30 07/14/18 05:30 Imaging - Results Cat Scan: Report Reviewed Assessment/Plan imp CRI mild left hydronephrosis left 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
[2018-07-14] MEDS: MULTIVITAMINS (DAILY MVI) TABLET (FP) PO SCH (09:08)
[2018-07-14] MEDS: hydrALAZINE HCL 50 MG TABLET (FP) PO SCH (09:08)
[2018-07-14] MEDS: CEFTRIAXONE 1 GM in DEXTROSE 5%-WATER - 50 ML IVPB SCH (09:08)
[2018-07-14] MEDS: amLODIPine BESYLATE 10 MG TABLET (FP) PO SCH (09:08)
[2018-07-14] MEDS: ASPIRIN 81 MG CHEWABLE TABLETS PO SCH (09:08)
[2018-07-14] MEDS: TAMSULOSIN HCL 0.4 MG CAP PO SCH (09:08)
[2018-07-14] MEDS: CHLORTHALIDONE 25 MG TABLET PO SCH (09:09)
[2018-07-14] MEDS: HEPARIN NA (PORCINE) 5,000 UNITS/ML 1ML VIAL SQ SCH ×2 (09:09→22:07)
[2018-07-14] MEDS: OSELTAMIVIR PHOSPHATE 30 MG CAPSULE PO SCH (09:10)
[2018-07-14] MEDS: RANOLAZINE E.R. 500 MG TABLET (FP) PO SCH ×2 (09:19→22:07)
--- NOTE | 2018-07-14 09:23 | CONS ---
DATE OF CONSULTATION: 07/13/2018 INFECTIOUS DISEASE CONSULTATION HISTORY OF PRESENT ILLNESS: The patient is an 88-year-old male who is evaluated for possible pneumonia. History was obtained via his daughter who acted as a slot floor attendant. He was admitted to the hospital on July 09, 2018, with a 2-day history of generalized weakness, arthralgias, myalgias, and fever and vomiting. He had apparently been found on the floor by his home health aid for an undetermined amount of time. He was taken to the emergency room where his temperature was 101.2. A CAT scan of the head was negative for acute infarct or bleed. A rapid influenza swab was performed and was positive for influenza A. He was started on Tamiflu. The patient was in contact with his daughter who had a respiratory illness. No recent hospitalization. He is a former smoker stopped in the . He is originally from the [place], has been living in the [facility] since 1984. No recent travel. No significant pet exposure. Did receive influenza vaccine this year. Patient reports cough productive of yellowish sputum. PAST MEDICAL HISTORY: Positive for hypertension, BPH, prostate cancer. ALLERGIES: No known allergies. MEDICATION: Amlodipine, aspirin, hydralazine, ceftriaxone. FAMILY HISTORY: As per HPI: LABORATORY DATA: White count 2.6, 34% neutrophils, absolute neutrophil count 1000, hematocrit 28.8, platelet count 164, BUN 45, creatinine 2.4. Blood cultures negative. CAT scan performed pending possible patchy right upper lobe infiltrate. PHYSICAL EXAMINATION: General: On exam, he is seated in bed, in no acute distress. His breathing is nonlabored on room air. Vital signs: Temperature 98.8, blood pressure 115/60, pulse 78 regular, respirations 18 per minute. HEENT: Sclerae anicteric. Cardiovascular: Heart sounds S1, S2. No murmur. Lungs: Rales at the bases bilaterally. Abdomen: Obese. Extremities: Positive for lower extremity edema bilaterally. IMPRESSION: 1. Acute influenza A. 2. Rule out secondary bacterial pneumonia. 3. Azotemia. 4. Leukopenia secondary to viral infection. Continue Tamiflu adjusted for creatinine clearance, complete 5-day course, await official reading of CAT scan, will obtain sputum culture, urine legionella, and pneumococcal antigens. Continue empiric ceftriaxone, droplet precaution for influenza, will follow. Thank you for the kind referral. LOLA JEAN M.D. [id number]
--- NOTE | 2018-07-14 10:25 | PN ---
Progress Note, Physician History of Present Illness: pulmonary alert,no distress,-spb. - Current Medication List Current Medications: Active Medications Amlodipine Besylate (Norvasc -) 10 mg PO DAILY [facility] Last Admin: 07/14/18 09:08 Dose: 10 mg Aspirin (Asa -) 81 mg PO DAILY [facility] Last Admin: 07/14/18 09:08 Dose: 81 mg Chlorthalidone (Hygroton -) 12.5 mg PO DAILY [facility] Last Admin: 07/14/18 09:09 Dose: 12.5 mg Heparin Sodium (Porcine) (Heparin -) 5,000 unit SQ BID [facility] Last Admin: 07/14/18 09:09 Dose: 5,000 unit Hydralazine HCl (Apresoline -) 50 mg PO DAILY [facility] Last Admin: 07/14/18 09:08 Dose: 50 mg Ceftriaxone Sodium 1 gm/ (Dextrose) 50 mls @ 100 mls/hr IVPB DAILY [facility]; Protocol Last Admin: 07/14/18 09:08 Dose: 100 mls/hr Multivitamins/Minerals/Vitamin C (Tab-A-Vit -) 1 tab PO DAILY [facility] Last Admin: 07/14/18 09:08 Dose: 1 tab Non-Formulary Medication (Enzalutamide [Xtandi]) 80 mg PO BID [facility] Oseltamivir Phosphate (Tamiflu -) 30 mg PO DAILY [facility] Stop: 07/16/18 09:59 Last Admin: 07/14/18 09:10 Dose: 30 mg Ranolazine (Ranexa -) 500 mg PO BID [facility] Last Admin: 07/14/18 09:19 Dose: 500 mg Tamsulosin HCl (Flomax -) 0.4 mg PO DAILY@0830 [facility] Last Admin: 07/14/18 09:08 Dose: 0.4 mg - Objective Vital Signs: Vital Signs Temperature 98.3 F 07/14/18 08:19 Pulse Rate 78 07/14/18 08:19 Respiratory Rate 20 07/14/18 08:19 Blood Pressure 139/71 07/14/18 08:19 O2 Sat by Pulse Oximetry (%) 95 07/14/18 08:18 Constitutional: Yes: Well Nourished, Calm Eyes: Yes: WNL HENT: Yes: WNL Neck: Yes: WNL Cardiovascular: Yes: Regular Rate and Rhythm, S1, S2 Respiratory: Yes: Rales (bibasilar crackles) Gastrointestinal: Yes: Normal Bowel Sounds, Soft Extremities: Yes: WNL Edema: Yes Labs: CBC, BMP 07/14/18 05:30 07/14/18 05:30 INR, PTT INR 1.13 (0.83-1.09) H 07/09/18 15:50 Assessment/Plan Problem List - Problems (1) MILTON (acute kidney injury) Code(s): N17.9 - ACUTE KIDNEY FAILURE, UNSPECIFIED (2) Abnormal chest xray Code(s): R93.89 - ABNORMAL FINDINGS ON DX IMAGING OF OT BODY STRUCTURES (3) CAD (coronary artery disease) Code(s): I25.10 - ATHSCL HEART DISEASE OF [place] CORONARY ARTERY W/O ANG PCTRS (4) CKD (chronic kidney disease) Code(s): N18.9 - CHRONIC KIDNEY DISEASE, UNSPECIFIED (5) Elevated troponin Code(s): R74.8 - ABNORMAL LEVELS OF OTHER SERUM ENZYMES (6) HTN (hypertension) Code(s): I10 - ESSENTIAL (PRIMARY) HYPERTENSION (7) Influenza A Code(s): J10.1 - FLU DUE TO OTH IDENT INFLUENZA VIRUS W OTH RESP MANIFEST (8) Prostate cancer Code(s): C61 - MALIGNANT NEOPLASM OF PROSTATE 9 PNEUMONIA 10 HILAR,MEDIASTINA ADENOPATHY LIKELY REACTIVE Assessment/Plan O2 as needed Tamiflu adjusted for CrCl Monitor renal function ABX Monitor off steroids VTE prophylaxis f/u chest ct [address] CALDWELL
--- NOTE | 2018-07-14 10:48 | PN ---
Progress Note (short form) - Note Progress Note: s: no chest pain, palps, dizziness, dyspnea Current Medications Amlodipine Besylate (Norvasc -) 10 mg PO DAILY [facility] Last Admin: 07/14/18 09:08 Dose: 10 mg Aspirin (Asa -) 81 mg PO DAILY [facility] Last Admin: 07/14/18 09:08 Dose: 81 mg Chlorthalidone (Hygroton -) 12.5 mg PO DAILY [facility] Last Admin: 07/14/18 09:09 Dose: 12.5 mg Heparin Sodium (Porcine) (Heparin -) 5,000 unit SQ BID [facility] Last Admin: 07/14/18 09:09 Dose: 5,000 unit Hydralazine HCl (Apresoline -) 50 mg PO DAILY [facility] Last Admin: 07/14/18 09:08 Dose: 50 mg Ceftriaxone Sodium 1 gm/ (Dextrose) 50 mls @ 100 mls/hr IVPB DAILY [facility]; Protocol Last Admin: 07/14/18 09:08 Dose: 100 mls/hr Multivitamins/Minerals/Vitamin C (Tab-A-Vit -) 1 tab PO DAILY [facility] Last Admin: 07/14/18 09:08 Dose: 1 tab Non-Formulary Medication (Enzalutamide [Xtandi]) 80 mg PO BID [facility] Oseltamivir Phosphate (Tamiflu -) 30 mg PO DAILY [facility] Stop: 07/16/18 09:59 Last Admin: 07/14/18 09:10 Dose: 30 mg Ranolazine (Ranexa -) 500 mg PO BID [facility] Last Admin: 07/14/18 09:19 Dose: 500 mg Tamsulosin HCl (Flomax -) 0.4 mg PO DAILY@0830 [facility] Last Admin: 07/14/18 09:08 Dose: 0.4 mg Vital Signs Period Temp Pulse Resp BP Sys/Diez Pulse Ox Last 24 Hr 98.1 F-98.4 F 69-89 20-20 114-141/66-79 95-95 Constitutional: Yes: Well Nourished, No Distress, Calm Cardiovascular: Yes: Regular Rate and Rhythm, S1, S2. No: Gallop, Murmur Respiratory: Yes: Regular, CTA Bilaterally. No: Accessory Muscle Use, Rales, Rhonchi, Wheezes Extremities: No: Cold Edema: No Neurological: Yes: Alert. No: Seizure Psychiatric: No: Agitated Assessment/Plan cxr: no chf ecg: sr no ischemic changes, nl qtc Echo 06/27: nl LVEF. nl RV. no signif valve abnormality tele: NSR, artifact a/p: 88 m hx htn, angina, here with weakness, fever, found to have flu. flu: -tx per pmd/ID htn: -controlled -cont current meds angina: -carries this dx, details of prior CAD (if any) unknown. follows with [facility] -no signs acs here, indeterminate trop with flat trend (0.1-0.3 serially) nl ckmb = not c/w acs -normal LVSF here -no angina sx's here -cont home meds incl Ranexa as QT normal here--f/u as outpt with outside cardio sri/ckd: -no baseline creat available -renal fxn improving here -ARB has [place] held, thiazide continued -renal following
[2018-07-14 13:18] LABS: ANISOCYTOSIS 0; MACROCYTOSIS 0; PLATELET ESTIMATE NORMAL
--- NOTE | 2018-07-14 13:33 | PN ---
Progress Note (short form) - Note Progress Note: Renal follow up for MILTON Pt seen and examined at the bedside feels better cough is better making urine no swelling, fever, cp, sob, flank pain Vital Signs Temperature 98.3 F 07/14/18 08:19 Pulse Rate 78 07/14/18 08:19 Respiratory Rate 20 07/14/18 08:19 Blood Pressure 139/71 07/14/18 08:19 O2 Sat by Pulse Oximetry (%) 95 07/14/18 08:18 Intake & Output 07/11/18 07/12/18 07/13/18 07/14/18 23:59 23:59 23:59 23:59 Intake Total 360 500 510 250 Output Total 300 500 Balance 60 0 510 250 Weight 92.533 kg 90.718 kg 90.991 kg 91.444 kg NAD RRR CTA soft NT/ND no LE edema CBC, BMP 07/14/18 05:30 07/14/18 05:30 Current Medications Amlodipine Besylate (Norvasc -) 10 mg PO DAILY [facility] Last Admin: 07/14/18 09:08 Dose: 10 mg Aspirin (Asa -) 81 mg PO DAILY [facility] Last Admin: 07/14/18 09:08 Dose: 81 mg Chlorthalidone (Hygroton -) 12.5 mg PO DAILY [facility] Last Admin: 07/14/18 09:09 Dose: 12.5 mg Heparin Sodium (Porcine) (Heparin -) 5,000 unit SQ BID [facility] Last Admin: 07/14/18 09:09 Dose: 5,000 unit Hydralazine HCl (Apresoline -) 50 mg PO DAILY [facility] Last Admin: 07/14/18 09:08 Dose: 50 mg Ceftriaxone Sodium 1 gm/ (Dextrose) 50 mls @ 100 mls/hr IVPB DAILY [facility]; Protocol Last Admin: 07/14/18 09:08 Dose: 100 mls/hr Multivitamins/Minerals/Vitamin C (Tab-A-Vit -) 1 tab PO DAILY [facility] Last Admin: 07/14/18 09:08 Dose: 1 tab Non-Formulary Medication (Enzalutamide [Xtandi]) 80 mg PO BID [facility] Oseltamivir Phosphate (Tamiflu -) 30 mg PO DAILY [facility] Stop: 07/16/18 09:59 Last Admin: 07/14/18 09:10 Dose: 30 mg Ranolazine (Ranexa -) 500 mg PO BID [facility] Last Admin: 07/14/18 09:19 Dose: 500 mg Tamsulosin HCl (Flomax -) 0.4 mg PO DAILY@0830 [facility] Last Admin: 07/14/18 09:08 Dose: 0.4 mg 88 m history of hypertension, Angina, CA prostate admitted with fever and found to have influenza +/- PNA with MILTON. #MILTON with mild hydroneprhosis #Anemia #BPH #Influenza #suspected PNA Urology input appreciated, chronic appearing hydronephrosis will start trial of IVF and monitor renal function continue abx as per TAQUERIA Maloney DO
[2018-07-14] MEDS: SODIUM CHLORIDE 1,000 ML IV SCH (22:10)
[2018-07-15] MEDS ORDERED: PT OWN MED DRAWER 7, Y5N ONE (06:15)
[2018-07-15 08:07] LABS: BASO % 0.6 % (0-2.0); EOS % 2.3 % (0-4.5); HEMATOCRIT 28.7 % (35.4-49); HEMOGLOBIN 10.2 GM/dL (11.7-16.9); LYMPH % 59.7 % (8-40); MCH 29.2 pg (25.7-33.7); MCHC 35.6 g/dl (32.0-35.9); MEAN CELL VOLUME 82.1 fl (80-96); MEAN PLT VOLUME 8.2 fl (7.5-11.1); MONO % 15.2 % (3.8-10.2); NEUT % 22.2 % (42.8-82.8); PLATELET COUNT 238 K/MM3 (134-434); RBC 3.49 M/mm3 (4.00-5.60); RDW 13.1 % (11.9-15.9); WHITE BLOOD COUNT 2.7 K/mm3 (4.0-10.0)
[2018-07-15 08:59] LABS: ANION GAP 8 MMOL/L (8-16); BLOOD UREA NITROGEN 42 mg/dL (7-18); CALCIUM 8.1 mg/dL (8.5-10.1); CHLORIDE 104 mmol/L (98-107); CO2 25 mmol/L (21-32); CREATININE 2.3 mg/dL (0.55-1.3); GLUCOSE,RANDOM 104 mg/dL (74-106); POTASSIUM 4.1 mmol/L (3.5-5.1); SODIUM 137 mmol/L (136-145)
[2018-07-15] MEDS ORDERED: cefTRIAXone SODIUM 1 GM VIAL ONE (09:21)
[2018-07-15] MEDS ORDERED: DEXTROSE 5%-WATER - 50 ML IVPB ONE (09:21)
[2018-07-15] MEDS: CEFTRIAXONE 1 GM in DEXTROSE 5%-WATER - 50 ML IVPB SCH (09:34)
[2018-07-15] MEDS: amLODIPine BESYLATE 10 MG TABLET (FP) PO SCH (09:34)
[2018-07-15] MEDS: MULTIVITAMINS (DAILY MVI) TABLET (FP) PO SCH (09:34)
[2018-07-15] MEDS: hydrALAZINE HCL 50 MG TABLET (FP) PO SCH (09:34)
[2018-07-15] MEDS: TAMSULOSIN HCL 0.4 MG CAP PO SCH (09:34)
[2018-07-15] MEDS: CHLORTHALIDONE 25 MG TABLET PO SCH (09:35)
[2018-07-15] MEDS: HEPARIN NA (PORCINE) 5,000 UNITS/ML 1ML VIAL SQ SCH ×2 (09:35→21:57)
[2018-07-15] MEDS: ASPIRIN 81 MG CHEWABLE TABLETS PO SCH (09:35)
[2018-07-15] MEDS: RANOLAZINE E.R. 500 MG TABLET (FP) PO SCH ×2 (09:35→21:57)
[2018-07-15] MEDS: OSELTAMIVIR PHOSPHATE 30 MG CAPSULE PO SCH (09:36)
--- NOTE | 2018-07-15 09:47 | DS ---
Physical Examination Vital Signs: Vital Signs Temperature 98.5 F 07/15/18 06:04 Pulse Rate 73 07/15/18 06:04 Respiratory Rate 18 07/15/18 06:04 Blood Pressure 156/86 07/15/18 06:04 O2 Sat by Pulse Oximetry (%) 97 07/14/18 20:36 Cardiovascular: Yes: S1, S2 Respiratory: Yes: Regular, CTA Bilaterally Gastrointestinal: No: Tenderness Labs: CBC, BMP 07/15/18 05:30 07/15/18 05:30 Discharge Summary Reason For Visit: INFLUENZA DUE TO INFLUENZA VIRUS/TYPE A HUMAN Current Active Problems MILTON (acute kidney injury) (Acute) Abnormal chest xray (Acute) CAD (coronary artery disease) (Acute) CKD (chronic kidney disease) (Acute) Elevated troponin (Acute) HTN (hypertension) (Acute) Hydronephrosis (Acute) Influenza A (Acute) Pneumonia (Acute) Prostate cancer (Acute) Sepsis (Acute) Hospital Course: Problems (1) Pneumonia Assessment/Plan: IV ABX PER ID CULTURES Code(s): J18.9 - PNEUMONIA, UNSPECIFIED ORGANISM (2) Hydronephrosis Assessment/Plan: UROLOGY CONSULT Code(s): N13.30 - UNSPECIFIED HYDRONEPHROSIS (3) Elevated troponin Assessment/Plan: Laboratory Tests 07/10/18 07/11/18 19:00 05:25 Troponin I 0.21 H 0.14 H Code(s): R74.8 - ABNORMAL LEVELS OF OTHER SERUM ENZYMES (4) Influenza A Assessment/Plan: ISOLATION COMPLETED TAMIFLU Code(s): J10.1 - FLU DUE TO OTH IDENT INFLUENZA VIRUS W OTH RESP MANIFEST Condition: Fair - Instructions Diet, Activity, Other Instructions: Cat scan in one month Referrals: Ilan Villaseñor MD [Primary Care Provider] - 1 Week - Home Medications Comprehensive Discharge Medication List: Ambulatory Orders Alfuzosin HCl [Uroxatral] 10 mg PO DAILY 07/09/18 Aspirin 81 mg PO DAILY 07/09/18 Chlorthalidone 25 mg PO DAILY 07/09/18 Enzalutamide [Xtandi] 80 mg PO BID 07/09/18 Hydralazine HCl 50 mg PO DAILY 07/09/18 Multivitamin [Multiple Vitamins] 1 each PO DAILY 07/09/18 Ranolazine [Ranexa] 500 mg PO BID 07/09/18 Amlodipine Besylate [Norvasc -] 10 mg PO DAILY #10 tablet 07/15/18 Cefuroxime Axetil [Ceftin -] 250 mg PO BID #14 tablet 07/15/18
--- NOTE | 2018-07-15 10:50 | PN ---
Progress Note, Physician History of Present Illness: PULMONARY ALERT,NO DISTRESS,-SOB - Current Medication List Current Medications: Active Medications Amlodipine Besylate (Norvasc -) 10 mg PO DAILY [facility] Last Admin: 07/15/18 09:34 Dose: 10 mg Aspirin (Asa -) 81 mg PO DAILY [facility] Last Admin: 07/15/18 09:35 Dose: 81 mg Chlorthalidone (Hygroton -) 12.5 mg PO DAILY [facility] Last Admin: 07/15/18 09:35 Dose: 12.5 mg Heparin Sodium (Porcine) (Heparin -) 5,000 unit SQ BID [facility] Last Admin: 07/15/18 09:35 Dose: 5,000 unit Hydralazine HCl (Apresoline -) 50 mg PO DAILY [facility] Last Admin: 07/15/18 09:34 Dose: 50 mg Ceftriaxone Sodium 1 gm/ (Dextrose) 50 mls @ 100 mls/hr IVPB DAILY [facility]; Protocol Last Admin: 07/15/18 09:34 Dose: 100 mls/hr Sodium Chloride (Normal Saline -) 1,000 mls @ 83 mls/hr IV ASDIR [facility] Last Admin: 07/14/18 22:10 Dose: 83 mls/hr Multivitamins/Minerals/Vitamin C (Tab-A-Vit -) 1 tab PO DAILY [facility] Last Admin: 07/15/18 09:34 Dose: 1 tab Non-Formulary Medication (Enzalutamide [Xtandi]) 80 mg PO BID [facility] Oseltamivir Phosphate (Tamiflu -) 30 mg PO DAILY [facility] Stop: 07/16/18 09:59 Last Admin: 07/15/18 09:36 Dose: 30 mg Ranolazine (Ranexa -) 500 mg PO BID [facility] Last Admin: 07/15/18 09:35 Dose: 500 mg Tamsulosin HCl (Flomax -) 0.4 mg PO DAILY@0830 [facility] Last Admin: 07/15/18 09:34 Dose: 0.4 mg - Objective Vital Signs: Vital Signs Temperature 98.5 F 07/15/18 10:00 Pulse Rate 73 07/15/18 10:00 Respiratory Rate 18 07/15/18 10:00 Blood Pressure 127/83 07/15/18 10:00 O2 Sat by Pulse Oximetry (%) 97 07/14/18 20:36 Constitutional: Yes: Well Nourished, Calm Eyes: Yes: WNL HENT: Yes: WNL Neck: Yes: WNL Cardiovascular: Yes: Regular Rate and Rhythm, S1, S2 Respiratory: Yes: Rales (FEW BIBASILAR CRACKLES) Gastrointestinal: Yes: Normal Bowel Sounds, Soft Extremities: Yes: WNL Edema: Yes Labs: CBC, BMP 07/15/18 05:30 07/15/18 05:30 INR, PTT INR 1.13 (0.83-1.09) H 07/09/18 15:50 Assessment/Plan Problem List - Problems (1) MILTON (acute kidney injury) Code(s): N17.9 - ACUTE KIDNEY FAILURE, UNSPECIFIED (2) Abnormal chest xray Code(s): R93.89 - ABNORMAL FINDINGS ON DX IMAGING OF OT BODY STRUCTURES (3) CAD (coronary artery disease) Code(s): I25.10 - ATHSCL HEART DISEASE OF [place] CORONARY ARTERY W/O ANG PCTRS (4) CKD (chronic kidney disease) Code(s): N18.9 - CHRONIC KIDNEY DISEASE, UNSPECIFIED (5) Elevated troponin Code(s): R74.8 - ABNORMAL LEVELS OF OTHER SERUM ENZYMES (6) HTN (hypertension) Code(s): I10 - ESSENTIAL (PRIMARY) HYPERTENSION (7) Influenza A Code(s): J10.1 - FLU DUE TO OTH IDENT INFLUENZA VIRUS W OTH RESP MANIFEST (8) Prostate cancer Code(s): C61 - MALIGNANT NEOPLASM OF PROSTATE 9 PNEUMONIA 10 HILAR,MEDIASTINA ADENOPATHY LIKELY REACTIVE Assessment/Plan O2 as needed Tamiflu completed Monitor renal function ABX PER ID Monitor off steroids VTE prophylaxis f/u chest ct [address] CALDWELL
--- NOTE | 2018-07-15 11:46 | PN ---
Progress Note (short form) - Note Progress Note: Renal follow up for MILTON Pt seen and examined at the bedside no aucte complaints feels better making urine, no flank pain, sob, cp, abd pain Vital Signs Temperature 98.5 F 07/15/18 10:00 Pulse Rate 73 07/15/18 10:00 Respiratory Rate 18 07/15/18 10:00 Blood Pressure 127/83 07/15/18 10:00 O2 Sat by Pulse Oximetry (%) 97 07/14/18 20:36 Intake & Output 07/12/18 07/13/18 07/14/18 07/15/18 23:59 23:59 23:59 23:59 Intake Total 500 510 710 900 Output Total 500 400 Balance 0 510 310 900 Weight 90.718 kg 90.991 kg 91.444 kg 91.671 kg NAD RRR CTA soft NT/ND no LE edema CBC, BMP 07/15/18 05:30 07/15/18 05:30 Current Medications Amlodipine Besylate (Norvasc -) 10 mg PO DAILY [facility] Last Admin: 07/15/18 09:34 Dose: 10 mg Aspirin (Asa -) 81 mg PO DAILY [facility] Last Admin: 07/15/18 09:35 Dose: 81 mg Chlorthalidone (Hygroton -) 12.5 mg PO DAILY [facility] Last Admin: 07/15/18 09:35 Dose: 12.5 mg Heparin Sodium (Porcine) (Heparin -) 5,000 unit SQ BID [facility] Last Admin: 07/15/18 09:35 Dose: 5,000 unit Hydralazine HCl (Apresoline -) 50 mg PO DAILY [facility] Last Admin: 07/15/18 09:34 Dose: 50 mg Ceftriaxone Sodium 1 gm/ (Dextrose) 50 mls @ 100 mls/hr IVPB DAILY [facility]; Protocol Last Admin: 07/15/18 09:34 Dose: 100 mls/hr Sodium Chloride (Normal Saline -) 1,000 mls @ 83 mls/hr IV ASDIR [facility] Last Admin: 07/14/18 22:10 Dose: 83 mls/hr Multivitamins/Minerals/Vitamin C (Tab-A-Vit -) 1 tab PO DAILY [facility] Last Admin: 07/15/18 09:34 Dose: 1 tab Non-Formulary Medication (Enzalutamide [Xtandi]) 80 mg PO BID [facility] Oseltamivir Phosphate (Tamiflu -) 30 mg PO DAILY [facility] Stop: 07/16/18 09:59 Last Admin: 07/15/18 09:36 Dose: 30 mg Ranolazine (Ranexa -) 500 mg PO BID [facility] Last Admin: 07/15/18 09:35 Dose: 500 mg Tamsulosin HCl (Flomax -) 0.4 mg PO DAILY@0830 [facility] Last Admin: 07/15/18 09:34 Dose: 0.4 mg 88 m history of hypertension, Angina, CA prostate admitted with fever and found to have influenza +/- PNA with MILTON. #MILTON with mild hydroneprhosis #Anemia #BPH #Influenza #suspected PNA Renal function stable at this time no acute intervention for hydronephrosis as per urology will discontinue IVF as no significant change in BUN/Cr noted with 24 hours of IVF and pt is tolerating oral diet will need to follow up in our office in 2-4 weeks as an outpatient discharge planning as per primary Manuel Maloney DO
--- NOTE | 2018-07-15 12:16 | PN ---
Progress Note (short form) - Note Progress Note: s: no chest pain, palps, dizziness, dyspnea Current Medications Amlodipine Besylate (Norvasc -) 10 mg PO DAILY [facility] Last Admin: 07/15/18 09:34 Dose: 10 mg Aspirin (Asa -) 81 mg PO DAILY [facility] Last Admin: 07/15/18 09:35 Dose: 81 mg Chlorthalidone (Hygroton -) 12.5 mg PO DAILY [facility] Last Admin: 07/15/18 09:35 Dose: 12.5 mg Heparin Sodium (Porcine) (Heparin -) 5,000 unit SQ BID [facility] Last Admin: 07/15/18 09:35 Dose: 5,000 unit Hydralazine HCl (Apresoline -) 50 mg PO DAILY [facility] Last Admin: 07/15/18 09:34 Dose: 50 mg Ceftriaxone Sodium 1 gm/ (Dextrose) 50 mls @ 100 mls/hr IVPB DAILY [facility]; Protocol Last Admin: 07/15/18 09:34 Dose: 100 mls/hr Sodium Chloride (Normal Saline -) 1,000 mls @ 83 mls/hr IV ASDIR [facility] Last Admin: 07/14/18 22:10 Dose: 83 mls/hr Multivitamins/Minerals/Vitamin C (Tab-A-Vit -) 1 tab PO DAILY [facility] Last Admin: 07/15/18 09:34 Dose: 1 tab Non-Formulary Medication (Enzalutamide [Xtandi]) 80 mg PO BID [facility] Oseltamivir Phosphate (Tamiflu -) 30 mg PO DAILY [facility] Stop: 07/16/18 09:59 Last Admin: 07/15/18 09:36 Dose: 30 mg Ranolazine (Ranexa -) 500 mg PO BID [facility] Last Admin: 07/15/18 09:35 Dose: 500 mg Tamsulosin HCl (Flomax -) 0.4 mg PO DAILY@0830 [facility] Last Admin: 07/15/18 09:34 Dose: 0.4 mg Vital Signs Period Temp Pulse Resp BP Sys/Diez Pulse Ox Last 24 Hr 97.8 F-98.5 F 69-78 18-18 113-156/68-87 97 Constitutional: Yes: Well Nourished, No Distress, Calm Cardiovascular: Yes: Regular Rate and Rhythm, S1, S2. No: Gallop, Murmur Respiratory: Yes: Regular, CTA Bilaterally. No: Accessory Muscle Use, Rales, Rhonchi, Wheezes Extremities: No: Cold Edema: No Neurological: Yes: Alert. No: Seizure Psychiatric: No: Agitated Assessment/Plan cxr: no chf ecg: sr no ischemic changes, nl qtc Echo 06/27: nl LVEF. nl RV. no signif valve abnormality a/p: 88 m hx htn, angina, here with weakness, fever, found to have flu. flu: -tx per pmd/ID htn: -controlled -cont current meds angina: -carries this dx, details of prior CAD (if any) unknown. follows with [facility] -no signs acs here, indeterminate trop with flat trend (0.1-0.3 serially) nl ckmb = not c/w acs -normal LVSF here -no angina sx's here -cont home meds incl Ranexa as QT normal here--f/u as outpt with outside cardio sri/ckd: -no baseline creat available -renal fxn improving here -ARB has chapincito held, thiazide continued -renal following
--- NOTE | 2018-07-15 16:29 | PN ---
Progress Note (short form) - Note Progress Note: ID f/u no fevers no cough rocephin day #3 day #5 tamiflu Vital Signs Period Temp Pulse Resp BP Sys/Diez Pulse Ox Last 24 Hr 97.8 F-98.5 F 69-75 18-18 124-156/69-87 97-97 cor-rrr lungs clear abd soft,nt ext +edema no adenopathy CBC, BMP 07/15/18 05:30 07/15/18 05:30 Microbiology 07/14/18 11:45 Sputum - Expectorated Gram Stain - Final 07/14/18 11:45 Sputum - Expectorated Sputum Culture - Preliminary NORMAL RESPIRATORY WILDER 07/09/18 15:00 Blood - Peripheral Venous Blood Culture - Final NO GROWTH AFTER 5 DAYS INCUBATION 07/09/18 15:50 Blood - Peripheral Venous Blood Culture - Final NO GROWTH AFTER 5 DAYS INCUBATION 07/14/18 11:45 Urine For Antigen Detection Legionella Antigen - Final 07/14/18 11:45 Urine For Antigen Detection Streptococcus pneumoniae Antigen (M - Final 07/09/18 16:05 Urine - Urine Clean Catch Urine Culture - Final a/p influenza A s/p tamiflu - last dose today leukopenia- I suspect secondary to influenza, consider HIV testing as outpt if leukopenia persists repeat cbcd in am day #3 rocephin to continue today, can switch to ceftin in am to finish 7 days
[2018-07-15] MEDS: SODIUM CHLORIDE 1,000 ML IV SCH (21:56)
[2018-07-16 08:14] LABS: BASO % 0.5 % (0-2.0); HEMOGLOBIN 10.7 GM/dL (11.7-16.9); MCHC 34.5 g/dl (32.0-35.9); WHITE BLOOD COUNT 3.8 K/mm3 (4.0-10.0)
[2018-07-16 08:17] LABS: EOS % 2.1 % (0-4.5); HEMATOCRIT 30.9 % (35.4-49); MCH 28.4 pg (25.7-33.7); MEAN CELL VOLUME 82.4 fl (80-96); MEAN PLT VOLUME 7.5 fl (7.5-11.1); MONO % 15.1 % (3.8-10.2); NEUT % 41.3 % (42.8-82.8); PLATELET COUNT 297 K/MM3 (134-434); RBC 3.75 M/mm3 (4.00-5.60); RDW 12.9 % (11.9-15.9)
[2018-07-16] MEDS ORDERED: PT OWN MED DRAWER 7, Y5N ONE (10:04)
[2018-07-16] MEDS ORDERED: cefTRIAXone SODIUM 1 GM VIAL ONE ×2 (10:04→10:28)
[2018-07-16] MEDS ORDERED: DEXTROSE 5%-WATER - 50 ML IVPB ONE ×2 (10:04→10:28)
[2018-07-16] MEDS: TAMSULOSIN HCL 0.4 MG CAP PO SCH (10:23)
[2018-07-16] MEDS: amLODIPine BESYLATE 10 MG TABLET (FP) PO SCH (10:23)
[2018-07-16] MEDS: HEPARIN NA (PORCINE) 5,000 UNITS/ML 1ML VIAL SQ SCH (10:23)
[2018-07-16] MEDS: ASPIRIN 81 MG CHEWABLE TABLETS PO SCH (10:23)
[2018-07-16] MEDS: MULTIVITAMINS (DAILY MVI) TABLET (FP) PO SCH (10:23)
[2018-07-16] MEDS: hydrALAZINE HCL 50 MG TABLET (FP) PO SCH (10:23)
[2018-07-16] MEDS: RANOLAZINE E.R. 500 MG TABLET (FP) PO SCH (10:23)
[2018-07-16] MEDS: CHLORTHALIDONE 25 MG TABLET PO SCH (10:24)
[2018-07-16] MEDS: CEFTRIAXONE 1 GM in DEXTROSE 5%-WATER - 50 ML IVPB SCH (10:30)
--- NOTE | 2018-07-16 11:41 | PN ---
Progress Note (short form) - Note Progress Note: s: no chest pain, palps, dizziness, dyspnea Current Medications Generic Name Dose Route Start Last Admin Trade Name Nani PRN Reason Stop Dose Admin Amlodipine Besylate 10 mg 07/12/18 10:45 07/16/18 10:23 Norvasc - PO 10 mg DAILY [facility] Administration Aspirin 81 mg 07/10/18 10:00 07/16/18 10:23 Asa - PO 81 mg DAILY [facility] Administration Chlorthalidone 12.5 mg 07/12/18 10:00 07/16/18 10:24 Hygroton - PO 12.5 mg DAILY [facility] Administration Heparin Sodium (Porcine) 5,000 unit 07/09/18 22:00 07/16/18 10:23 Heparin - SQ 5,000 unit BID [facility] Administration Hydralazine HCl 50 mg 07/10/18 10:00 07/16/18 10:23 Apresoline - PO 50 mg DAILY [facility] Administration Ceftriaxone Sodium 1 gm/ 50 mls @ 100 mls/hr 07/13/18 13:30 07/16/18 10:30 Dextrose IVPB 100 mls/hr DAILY [facility] Administration Protocol Sodium Chloride 1,000 mls @ 83 mls/hr 07/14/18 13:45 07/15/18 21:56 Normal Saline - IV Not Given ASDIR [facility] Multivitamins/Minerals/Vitamin C 1 tab 07/10/18 10:00 07/16/18 10:23 Tab-A-Vit - PO 1 tab DAILY [facility] Administration Non-Formulary Medication 80 mg 07/09/18 22:00 Enzalutamide [Xtandi] PO BID [facility] Ranolazine 500 mg 07/09/18 22:00 07/16/18 10:23 Ranexa - PO 500 mg BID [facility] Administration Tamsulosin HCl 0.4 mg 07/10/18 08:30 07/16/18 10:23 Flomax - PO 0.4 mg DAILY@0830 [facility] Administration Vital Signs Period Temp Pulse Resp BP Sys/Diez Pulse Ox Last 24 Hr 97.4 F-98.1 F 70-80 18-20 124-168/60-93 97 Constitutional: Yes: Well Nourished, No Distress, Calm Cardiovascular: Yes: Regular Rate and Rhythm, S1, S2. No: Gallop, Murmur Respiratory: Yes: Regular, CTA Bilaterally. No: Accessory Muscle Use, Rales, Rhonchi, Wheezes Extremities: No: Cold Edema: No Neurological: Yes: Alert. No: Seizure Psychiatric: No: Agitated CBC, BMP 07/16/18 07:25 07/15/18 05:30 cxr: no chf ecg: sr no ischemic changes, nl qtc Echo 06/27: nl LVEF. nl RV. no signif valve abnormality a/p: 88 m hx htn, angina, here with weakness, fever, found to have flu. flu: -tx per pmd/ID htn: -cont current meds angina: -carries this dx, details of prior CAD (if any) unknown. follows with [facility] -no signs acs here, indeterminate trop with flat trend (0.1-0.3 serially) nl ckmb = not c/w acs -normal LVSF here -no angina sx's here -cont home meds incl Ranexa as QT normal here--f/u as outpt with outside cardio sri/ckd: -no baseline creat available -renal fxn improving here -ARB has chapincito held, thiazide continued -renal following
--- NOTE | 2018-07-16 12:39 | PN ---
Progress Note (short form) - Note Progress Note: Overall better. No CP or SOB. No acute events overnight. Intake & Output 07/13/18 07/14/18 07/15/18 07/16/18 23:59 23:59 23:59 23:59 Intake Total 014 736 9482 240 Output Total 400 200 Balance 705 030 7262 40 Weight 200 lb 9.6 oz 201 lb 9.6 oz 202 lb 1.6 oz Last Vital Signs Temp Pulse Resp BP Pulse Ox 98 F 70 18 126/60 97 07/16/18 10:00 07/16/18 10:00 07/16/18 10:00 07/16/18 10:00 07/15/18 21:00 Active Medications Amlodipine Besylate (Norvasc -) 10 mg PO DAILY [facility] Last Admin: 07/16/18 10:23 Dose: 10 mg Aspirin (Asa -) 81 mg PO DAILY [facility] Last Admin: 07/16/18 10:23 Dose: 81 mg Chlorthalidone (Hygroton -) 12.5 mg PO DAILY [facility] Last Admin: 07/16/18 10:24 Dose: 12.5 mg Heparin Sodium (Porcine) (Heparin -) 5,000 unit SQ BID [facility] Last Admin: 07/16/18 10:23 Dose: 5,000 unit Hydralazine HCl (Apresoline -) 50 mg PO DAILY [facility] Last Admin: 07/16/18 10:23 Dose: 50 mg Ceftriaxone Sodium 1 gm/ (Dextrose) 50 mls @ 100 mls/hr IVPB DAILY [facility]; Protocol Last Admin: 07/16/18 10:30 Dose: 100 mls/hr Sodium Chloride (Normal Saline -) 1,000 mls @ 83 mls/hr IV ASDIR [facility] Last Admin: 07/15/18 21:56 Dose: Not Given Multivitamins/Minerals/Vitamin C (Tab-A-Vit -) 1 tab PO DAILY [facility] Last Admin: 07/16/18 10:23 Dose: 1 tab Non-Formulary Medication (Enzalutamide [Xtandi]) 80 mg PO BID [facility] Ranolazine (Ranexa -) 500 mg PO BID [facility] Last Admin: 07/16/18 10:23 Dose: 500 mg Tamsulosin HCl (Flomax -) 0.4 mg PO DAILY@0830 [facility] Last Admin: 07/16/18 10:23 Dose: 0.4 mg Constitutional: Yes: NAD Eyes: Yes: WNL HENT: Yes: WNL Neck: Yes: WNL Cardiovascular: Yes: Regular Rate and Rhythm, S1, S2 Respiratory: Yes: Few bibasilar rhonchi, no wheeze Gastrointestinal: Yes: Normal Bowel Sounds, Soft Extremities: Yes: WNL Edema: Yes Labs: Laboratory Results - last 24 hr 07/16/18 07:25 WBC 3.8 L RBC 3.75 L Hgb 10.7 L Hct 30.9 L MCV 82.4 MCH 28.4 MCHC 34.5 RDW 12.9 Plt Count 297 D MPV 7.5 Absolute Neuts (auto) 1.6 Neutrophils % 41.3 L D Lymphocytes % 41.0 H D Monocytes % 15.1 H Eosinophils % 2.1 Basophils % 0.5 Nucleated RBC % 0 Assessment/Plan Problem List - Problems (1) MILTON (acute kidney injury) Code(s): N17.9 - ACUTE KIDNEY FAILURE, UNSPECIFIED (2) Abnormal chest xray Code(s): R93.89 - ABNORMAL FINDINGS ON DX IMAGING OF OTH BODY STRUCTURES (3) CAD (coronary artery disease) Code(s): I25.10 - ATHSCL HEART DISEASE OF [place] CORONARY ARTERY W/O ANG PCTRS (4) CKD (chronic kidney disease) Code(s): N18.9 - CHRONIC KIDNEY DISEASE, UNSPECIFIED (5) Elevated troponin Code(s): R74.8 - ABNORMAL LEVELS OF OTHER SERUM ENZYMES (6) HTN (hypertension) Code(s): I10 - ESSENTIAL (PRIMARY) HYPERTENSION (7) Influenza A Code(s): J10.1 - FLU DUE TO OTH IDENT INFLUENZA VIRUS W OTH RESP MANIFEST (8) Prostate cancer Code(s): C61 - MALIGNANT NEOPLASM OF PROSTATE 9 PNEUMONIA 10 HILAR,MEDIASTINA ADENOPATHY LIKELY REACTIVE Assessment/Plan Tamiflu completed Ceftin PO to complete 7 days VTE prophylaxis Follow CT chest in 6 weeks No Pulmonary contraindication for D/C Dr Davidson Problem List - Problems (1) MILTON (acute kidney injury) Code(s): N17.9 - ACUTE KIDNEY FAILURE, UNSPECIFIED (2) Abnormal chest xray Code(s): R93.89 - ABNORMAL FINDINGS ON DX IMAGING OF OTH BODY STRUCTURES (3) CAD (coronary artery disease) Code(s): I25.10 - ATHSCL HEART DISEASE OF [place] CORONARY ARTERY W/O ANG PCTRS (4) CKD (chronic kidney disease) Code(s): N18.9 - CHRONIC KIDNEY DISEASE, UNSPECIFIED (5) Elevated troponin Code(s): R74.8 - ABNORMAL LEVELS OF OTHER SERUM ENZYMES (6) HTN (hypertension) Code(s): I10 - ESSENTIAL (PRIMARY) HYPERTENSION (7) Influenza A Code(s): J10.1 - FLU DUE TO OTH IDENT INFLUENZA VIRUS W OTH RESP MANIFEST (8) Prostate cancer Code(s): C61 - MALIGNANT NEOPLASM OF PROSTATE
--- NOTE | 2018-07-16 12:49 | PN ---
Progress Note (short form) - Note Progress Note: Renal follow up for MILTON Pt seen and examined at the bedside no complaints no sob, cp, abd pain making urine Vital Signs Temperature 98 F 07/16/18 10:00 Pulse Rate 70 07/16/18 10:00 Respiratory Rate 18 07/16/18 10:00 Blood Pressure 126/60 07/16/18 10:00 O2 Sat by Pulse Oximetry (%) 97 07/15/18 21:00 Intake & Output 07/13/18 07/14/18 07/15/18 07/16/18 23:59 23:59 23:59 23:59 Intake Total 831 710 8424 240 Output Total 400 200 Balance 098 793 2877 40 Weight 90.991 kg 91.444 kg 91.671 kg NAD RRR CTA soft NT/ND no LE edema CBC, BMP 07/16/18 07:25 07/15/18 05:30 Current Medications Amlodipine Besylate (Norvasc -) 10 mg PO DAILY [facility] Last Admin: 07/16/18 10:23 Dose: 10 mg Aspirin (Asa -) 81 mg PO DAILY [facility] Last Admin: 07/16/18 10:23 Dose: 81 mg Chlorthalidone (Hygroton -) 12.5 mg PO DAILY [facility] Last Admin: 07/16/18 10:24 Dose: 12.5 mg Heparin Sodium (Porcine) (Heparin -) 5,000 unit SQ BID [facility] Last Admin: 07/16/18 10:23 Dose: 5,000 unit Hydralazine HCl (Apresoline -) 50 mg PO DAILY [facility] Last Admin: 07/16/18 10:23 Dose: 50 mg Ceftriaxone Sodium 1 gm/ (Dextrose) 50 mls @ 100 mls/hr IVPB DAILY [facility]; Protocol Last Admin: 07/16/18 10:30 Dose: 100 mls/hr Sodium Chloride (Normal Saline -) 1,000 mls @ 83 mls/hr IV ASDIR [facility] Last Admin: 07/15/18 21:56 Dose: Not Given Multivitamins/Minerals/Vitamin C (Tab-A-Vit -) 1 tab PO DAILY [facility] Last Admin: 07/16/18 10:23 Dose: 1 tab Non-Formulary Medication (Enzalutamide [Xtandi]) 80 mg PO BID [facility] Ranolazine (Ranexa -) 500 mg PO BID [facility] Last Admin: 07/16/18 10:23 Dose: 500 mg Tamsulosin HCl (Flomax -) 0.4 mg PO DAILY@0830 [facility] Last Admin: 07/16/18 10:23 Dose: 0.4 mg 88 m history of hypertension, Angina, [place] prostate admitted with fever and found to have influenza +/- PNA with MILTON. #MILTON with mild hydroneprhosis #Anemia #BPH #Influenza #suspected PNA Renal function remains stable stable for discharge should avoid NSAID and other nephrotoxins at home will need renal follow up as an outpatient Manuel Maloney DO
--- NOTE | 2018-07-16 15:16 | PN ---
Progress Note, Physician Chief Complaint: patient to go home today on po ceftin - Current Medication List Current Medications: Active Medications Amlodipine Besylate (Norvasc -) 10 mg PO DAILY [facility] Last Admin: 07/16/18 10:23 Dose: 10 mg Aspirin (Asa -) 81 mg PO DAILY [facility] Last Admin: 07/16/18 10:23 Dose: 81 mg Chlorthalidone (Hygroton -) 12.5 mg PO DAILY [facility] Last Admin: 07/16/18 10:24 Dose: 12.5 mg Heparin Sodium (Porcine) (Heparin -) 5,000 unit SQ BID [facility] Last Admin: 07/16/18 10:23 Dose: 5,000 unit Hydralazine HCl (Apresoline -) 50 mg PO DAILY [facility] Last Admin: 07/16/18 10:23 Dose: 50 mg Sodium Chloride (Normal Saline -) 1,000 mls @ 83 mls/hr IV ASDIR [facility] Last Admin: 07/15/18 21:56 Dose: Not Given Multivitamins/Minerals/Vitamin C (Tab-A-Vit -) 1 tab PO DAILY [facility] Last Admin: 07/16/18 10:23 Dose: 1 tab Non-Formulary Medication (Enzalutamide [Xtandi]) 80 mg PO BID [facility] Ranolazine (Ranexa -) 500 mg PO BID [facility] Last Admin: 07/16/18 10:23 Dose: 500 mg Tamsulosin HCl (Flomax -) 0.4 mg PO DAILY@0830 [facility] Last Admin: 07/16/18 10:23 Dose: 0.4 mg - Objective Vital Signs: Vital Signs Temperature 98 F 07/16/18 10:00 Pulse Rate 70 07/16/18 10:00 Respiratory Rate 18 07/16/18 10:00 Blood Pressure 126/60 07/16/18 10:00 O2 Sat by Pulse Oximetry (%) 97 07/15/18 21:00 Constitutional: Yes: Calm Cardiovascular: Yes: Regular Rate and Rhythm, S1, S2 Respiratory: Yes: CTA Bilaterally Gastrointestinal: Yes: Normal Bowel Sounds, Soft Edema: No Neurological: Yes: Alert, Oriented Labs: CBC, BMP 07/16/18 07:25 07/15/18 05:30 INR, PTT INR 1.13 (0.83-1.09) H 07/09/18 15:50 Problem List - Problems (1) CKD (chronic kidney disease) Assessment/Plan: saad easley follow up as outpatient Code(s): N18.9 - CHRONIC KIDNEY DISEASE, UNSPECIFIED (2) Influenza A Assessment/Plan: completed tamiflu course Code(s): J10.1 - FLU DUE TO OTH IDENT INFLUENZA VIRUS W OTH RESP MANIFEST (3) Pneumonia Assessment/Plan: po ceftin for [address] in 6 weeks Code(s): J18.9 - PNEUMONIA, UNSPECIFIED ORGANISM
[2018-07-16 15:59] VITALS: BP 126/56; PULSE 73; TEMP 98.2
[2018-07-16 16:18] VITALS: BMI 29.0
== END 2018-07-16 18:25 | disposition home health service (06) | DRG 194 ==
LOC: JER 15:11 → SUPCPDRO 15:11 → JERBED 16:36 → J4W 20:27
PROVIDERS: ADMIT Internal Medicine; ATTEND Family Medicine
DX: J09.X1 Influenza due to identified novel influenza A virus with pneumonia (principal); N17.9 Acute kidney failure, unspecified; N13.0 Hydronephrosis with ureteropelvic junction obstruction; C61 Malignant neoplasm of prostate; N40.0 Benign prostatic hyperplasia without lower urinary tract symptoms; I44.0 Atrioventricular block, first degree; I12.9 Hypertensive chronic kidney disease with stage 1 through stage 4 chronic kidney disease, or unspecified chronic kidney disease; N18.9 Chronic kidney disease, unspecified; E86.9 Volume depletion, unspecified; Z87.891 Personal history of nicotine dependence; I25.10 Atherosclerotic heart disease of native coronary artery without angina pectoris; R59.0 Localized enlarged lymph nodes
CPT/HCPCS: 36415; 70450-TC; 71045-TC-FY; 71250-TC; 74176-TC; 76775-TC; 80048; 80053; 80061; 81003; 81015; 82550; 82553; 82570; 82803; 83036; 83605; 83721; 83735; 83880; 84100; 84484; 85025; 85027; 85610; 85730; 86038; 87040; 87070; 87086; 87205; 87804; 87899; 93005; 93010; 93306-TC; 93880-TC; 97116-GP; 97161-GP; 99285-25; J0131; J1644; J7030

== ENCOUNTER 2018-09-29 14:53 | Observation (INO) | payer OTHER ==
--- NOTE | 2018-09-29 15:35 | PDOC ---
History of Present Illness - General Chief Complaint: Syncope/Near Syncope Stated Complaint: Lightheaded Time Seen by Provider: 09/29/18 15:35 History Source: Patient, Spouse Exam Limitations: Language Barrier - History of Present Illness Initial Comments: History obtained from who is next to patient at bedside as patient only speaks greenlandic. 88 yo Bolivian speaking M w a pmh of HTN, CAD, Prostate Ca, chronic anginal pain and BPH presents to the ER BIBEMS after he experienced some left sided chest discomfort at 1:30 Pm this afternoon. He describes the pain as burning like in sensation and rated it as 6/10 in intensity. The chest discomfort was associated with palpitations for 5 minutes. The states at bedside that the pain did not radiate to the neck, down the arm or to the back. When the patient had this episode of chest pain he states he felt globally weak and had very little energy. The patient did not experience nausea, vomiting, or diaphoresis at any point today. The patient did not fall at home and did not experience any trauma at home. Per the triage report it notes the patient syncopized in the ER. The at bedside states that he was lying down and all of a sudden became unresponsive for about 5 or 6 seconds. He did not fall down or experience any trauma at any point. PCP: Ilan Badillo/Jean [facility] Admission PSH: None reported Social Hx: Denies current smoking, drinking, or other substance usage Allergies: NKA, NKDA Past History - Past Medical History Allergies/Adverse Reactions: Allergies Allergy/AdvReac Type Severity Reaction Status Date / Time No Known Allergies Allergy Verified 09/29/18 15:10 Home Medications: Ambulatory Orders Alfuzosin HCl [Uroxatral] 10 mg PO DAILY 07/09/18 Aspirin 81 mg PO DAILY 07/09/18 Chlorthalidone 25 mg PO DAILY 07/09/18 Enzalutamide [Xtandi] 80 mg PO BID 07/09/18 Hydralazine HCl 50 mg PO DAILY 07/09/18 Multivitamin [Multiple Vitamins] 1 each PO DAILY 07/09/18 Ranolazine [Ranexa] 500 mg PO BID 07/09/18 Amlodipine Besylate [Norvasc -] 10 mg PO DAILY #10 tablet 07/15/18 Cefuroxime Axetil [Ceftin -] 250 mg PO BID #14 tablet 07/15/18 Cancer: Yes (prostate) Cardiac Disorders: Yes (angina) COPD: No HTN: Yes Hypercholesterolemia: Yes - Suicide/Smoking/Psychosocial Hx Smoking History: Never smoked Have you smoked in the past 12 months: No Information on smoking cessation initiated: No Hx Alcohol Use: No Drug/Substance Use Hx: No Substance Use Type: None Hx Substance Use Treatment: No Review of Systems - Review of Systems Able to Perform ROS?: Yes Comments:: CONSTITUTIONAL: Present: Fatigue Absent: fever, no chills EYES: Absent: visual changes ENT: Absent: ear pain, no sore throat CARDIOVASCULAR: Present: chest pain, palpitations RESPIRATORY: Absent: cough, no SOB GI: Absent: abdominal pain, no nausea, no vomiting, no constipation, no diarrhea GENITOURINARY: Absent: dysuria, no frequency, no hematuria MUSKULOSKELETAL: Absent: back pain, no arthralgia, no myalgia SKIN: Absent: rash NEURO: Absent: headache *Physical Exam - Vital Signs Last Vital Signs Temp Pulse Resp BP Pulse Ox 97.5 F L 105 H 20 111/68 97 09/29/18 15:11 09/29/18 15:11 09/29/18 15:11 09/29/18 15:11 09/29/18 15:11 - Physical Exam Comments: GENERAL: Well-appearing, well-nourished. No apparent distress. HEENT: Normocephalic, atraumatic. PERRL, EOM intact. CARDIOVASCULAR: Normal S1, S2. Regular rate and rhythm. PULMONARY: No evidence of respiratory distress. Lungs clear to auscultation bilaterally. No wheezing, rales or rhonchi. ABDOMEN: Soft, non-distended, non-tender. EXTREMITIES: 1+ edema in both ankles. Normal ROM in all four extremities. No gross deformities. SKIN: Warm, dry. No rash NEUROLOGICAL: No focal neurological deficits. ED Treatment Course - LABORATORY CBC & Chemistry Diagram: 09/29/18 16:32 09/29/18 16:32 - ADDITIONAL ORDERS Additional order review: Laboratory Results 09/29/18 15:02 POC Glucometer 133 09/29/18 15:02 POC Glucometer 133 - RADIOLOGY Radiograph Interpretation: Head CT: Cranial CT without contrast Clinical information: evaluate for CVA/ bleed No intracranial hemorrhage is seen. There is no definite acute infarct within the limitations of CT. A chronic left posterior temporal cortical infarct is noted. Mild periventricular chronic microvascular ischemic changes are seen. No extra-axial fluid collection is noted. There is no obvious mass lesion on noncontrast imaging. Involutional changes are seen with mild ventricular dilatation. The partially imaged left maxillary sinus demonstrates at least partial resolution of sinusitis since the previous exam. On the current study there is minimal to mild bilateral ethmoid sinus mucosal thickening which appears improved. Impression: No CT evidence of acute intracranial pathology. A chronic left posterior temporal cortical infarct is noted. The intracranial structures demonstrate no definite interval change in comparison to a prior CT study of 07/09/2018. CXR: Chest: Chest pain 2 views of the chest have been submitted. Since the prior study 07/09/2018 there is a deeper inspiration with prominent heart, tortuous aorta and prominent apolinar. An acute chest process is not seen. The angles are sharp. The bones and soft tissues are intact. Correlation recommended. Medical Decision Making - Medical Decision Making History obtained from who is next to patient at bedside as patient only speaks greenlandic. 88 yo Bolivian speaking M w a pmh of HTN, CAD, Prostate Ca, chronic anginal pain and BPH presents to the ER BIBEMS after he experienced some left sided chest discomfort at 1:30 Pm this afternoon. He describes the pain as burning like in sensation and rated it as 6/10 in intensity. The chest discomfort was associated with palpitations for 5 minutes. The states at bedside that the pain did not radiate to the neck, down the arm or to the back. When the patient had this episode of chest pain he states he felt globally weak and had very little energy. The patient did not experience nausea, vomiting, or diaphoresis at any point today. The patient did not syncopize at home and did not experience any trauma at home. Per the triage report it notes the patient syncopized in the ER. The at bedside states that he was lying down and all of a sudden became unresponsive for about 5 or 6 seconds. He did not fall down or experience any trauma at any point. VS: Tachycardic in triage, normal ~80 at bedside. Otherwise WNL. DDx IBNLT: Syncope, CVA/TIA, seizures, ACS/PA, Arrhythmia, electrolyte/ metabolic derangement, PNA, pneumothorax, GERD/gastric reflux/PUD, Chronic angina pain. Plan: Labs, Urine, EKG, CXR, Head Ct, IV hydration, re-assess, likely Tele obs admit. Patien is experiencing a kidney injury - based on prior labs appears chronic in nature. Will admit to hospital to further manage the syncope *DC/Admit/Observation/Transfer Diagnosis at time of Disposition: Syncope, Kidney injury, CKD (chronic kidney disease), Anemia, Prostate cancer - Discharge Dispostion Condition at time of disposition: Stable Decision to Admit order: Yes - Referrals - Patient Instructions - Post Discharge Activity
[2018-09-29] MEDS ORDERED: SODIUM CHLORIDE 1,000 ML IV STA (15:55)
[2018-09-29] MEDS ORDERED: ASPIRIN 81 MG CHEWABLE TABLETS PO ONE (15:55)
[2018-09-29] MEDS ORDERED: ASPIRIN 81 MG CHEWABLE TABLETS ONE (16:19)
[2018-09-29 16:51] LABS: BASO % 0.6 % (0-2.0); HEMATOCRIT 29.1 % (35.4-49); HEMOGLOBIN 9.7 GM/dL (11.7-16.9); LYMPH % 28.3 % (8-40); MCH 28.4 pg (25.7-33.7); MCHC 33.2 g/dl (32.0-35.9); MEAN CELL VOLUME 85.3 fl (80-96); MEAN PLT VOLUME 7.3 fl (7.5-11.1); MONO % 9.3 % (3.8-10.2); NEUT % 59.8 % (42.8-82.8); PLATELET COUNT 267 K/MM3 (134-434); RBC 3.41 M/mm3 (4.00-5.60); RDW 13.7 % (11.9-15.9); WHITE BLOOD COUNT 3.9 K/mm3 (4.0-10.0)
[2018-09-29 17:13] LABS: ALBUMIN 3.5 g/dl (3.4-5.0); ALK PHOS 85 U/L (45-117); ANION GAP 9 MMOL/L (8-16); BILIRUBIN,TOTAL 0.3 mg/dL (0.2-1); BLOOD UREA NITROGEN 48 mg/dL (7-18); CHLORIDE 101 mmol/L (98-107); CO2 28 mmol/L (21-32); CREATININE 2.4 mg/dL (0.55-1.3); GLUCOSE,RANDOM 126 mg/dL (74-106); MAGNESIUM 2.2 mg/dL (1.8-2.4); N-TERMINAL BNP 447.8 pg/ml (5-450); POTASSIUM 4.5 mmol/L (3.5-5.1); SGOT/AST 19 U/L (15-37); SGPT/ALT 13 U/L (13-61); SODIUM 138 mmol/L (136-145); TOT PROT 7.1 g/dl (6.4-8.2)
[2018-09-29 17:30] LABS: INR 0.97 (0.83-1.09); PROTHROMBIN TIME (PATIENT) 11.4 SEC (9.7-13.0)
[2018-09-29 17:47] LABS: URINE APPEARANCE CLEAR; URINE BILIRUBIN NEGATIVE (NEGATIVE); URINE COLOR YELLOW; URINE GLUCOSE (UA) NEGATIVE (NEGATIVE); URINE KETONE NEGATIVE (NEGATIVE); URINE LEUK ESTERASE NEGATIVE (NEGATIVE); URINE NITRITE NEGATIVE (NEGATIVE); URINE PROTEIN NEGATIVE (NEGATIVE); URINE UROBILINOGEN 0.2 mg/dL (0.2-1.0)
--- NOTE | 2018-09-29 20:22 | PN ---
Teaching Attending Note Name of Resident: Arthur Ordonez ATTENDING PHYSICIAN STATEMENT I saw and evaluated the patient. I reviewed the resident's note and discussed the case with the resident. I agree with the resident's findings and plan as documented. SUBJECTIVE: Seen and examined; please refer to resident note for further historical details. Briefly, this is a88 y/o man HTN, CKD, chronic angina, CKD, presents with an episode of syncope at home. Several seconds of nonresponsiveness. Spontaneously resolving L-sided chest pain. Had repeated unresponsive episode in the ER; per ER international accountant ER staff noted they were 'rigid' during episode but no post ictal, tonic clonic, etc. 10 sys ROS done and negative aside from HPI PMH, PSH, FH, SH reviewed Home Medications Medication Instructions Recorded Alfuzosin HCl [Uroxatral] 10 mg PO DAILY 07/09/18 Aspirin 81 mg PO DAILY 07/09/18 Chlorthalidone 25 mg PO DAILY 07/09/18 Enzalutamide [Xtandi] 160 mg PO DAILY 07/09/18 Hydralazine HCl 50 mg PO TID 07/09/18 Multivitamin [Multiple Vitamins] 1 each PO DAILY 07/09/18 Ranolazine [Ranexa] 500 mg PO BID 07/09/18 Losartan Potassium 100 mg PO DAILY 09/29/18 Lovastatin 10 mg PO HS 09/29/18 [place]-3 Fatty Acids/Fish Oil [Fish 1 tab PO DAILY 09/29/18 Oil 1,000 mg Capsule] OBJECTIVE: VS, labs, imaging reviewed NAD, AAO, resting in bed answering questions appropriately NC AT EOMI PERRLA RRR s1/2 with slight systolic murmur lsb Lungs CTAB, w/ sym exp NT ND +BS CN2-12 wnl, no fnd Normal mood, appropriate behavior CT Ltemporal infarct unchanged since June CXR without acute disease EKG reviewed Echo 07/2018 shows mild asym LVH with nl LVEF, mild MR, moderae , mild AR ASSESSMENT AND PLAN: Patient presents with syncope x2 ('unresponsive episodes') associated with chest pain 1) Chest Pain, r/o ACS -Placing on telemetry; he follows with [facility] so should obtain old records which are pending. Has seen Dr. Kirk here so will consult for further recommendations regarding tx and diagnostics. He is currently CP-free. Monitor tele, repeat EKG, trend troponin. Continue home meds. 2) Syncope -Place on telemetry, consult Dr. Kirk, given 'rigidity' (obtained from secondhand account) will go ahead and do neuro checks but this doesn't sound like a true seizure. EKG reviewed. -Monitor BP and avoid extreme fluctuations in BP given the moderate ; mild MR and mild AT noted on 07/2018 echo -Check carotid duplex to r/o any stenosis given risk factors -Check orthostatic VS 3) CKD -At baseline; continue to trend BMP and monitor UOP 4) Chronic Angina/?CAD -Follows with [facility]; was here 2 months ago and had ACS ruled out and saw Dr. Kirk -Continue home meds including ranexa; followup with OP customer data technician. -Not on BB; would like to review old records from OP 5) Hx HTN -Monitor BP, verify and continue home medications. 6) BPH -Verify and continue home meds 7) Hx Prostate CA -Nonacute; followup with PCP 8) Valvular Heart Disease -Noted on 07/2018 echo; followup with [facility] Full Code
--- NOTE | 2018-09-29 21:47 | HP ---
CHIEF COMPLAINT: syncope PCP: Ilan Villaseñor HISTORY OF PRESENT ILLNESS: Patient is an 88 y/o M w/ PMHx HTN, CAD, CKD, prostate Ca, chronic anginal pain , p/w unresponsive episode witnessed by at home for ~1 minute, subsequently developing L-sided chest pain w/o radiation for several minutes which resolved. No nausea/vomiting/diaphoresis. Was brought to ED and again became unresponsive for ~1 minute, no tonic-clonic activity, incontinence, tongue-biting, post-ictal period however per ED signout Pt was observed to be very rigid at that time. Afebrile, borderline tachycardic, otherwise stable vitals on presentation. Labs unremarkable: anemia is chronic 2/2 CKD, Cr at baseline, troponin negative x 1. EKG showing 1st degree AV block without acute ST or T-wave changes. 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 Received ASA and 1L bolus NS in ED. Was asymptomatic at time of encounter. Recent Travel: PAST MEDICAL HISTORY: As per HPI PAST SURGICAL HISTORY: Social History: Smoking: No Alcohol: No Drugs: No Family History: Allergies No Known Allergies Allergy (Verified 09/29/18 15:10) HOME MEDICATIONS: Home Medications Medication Instructions Recorded Alfuzosin HCl [Uroxatral] 10 mg PO DAILY 07/09/18 Aspirin 81 mg PO DAILY 07/09/18 Chlorthalidone 25 mg PO DAILY 07/09/18 Enzalutamide [Xtandi] 80 mg PO BID 07/09/18 Hydralazine HCl 50 mg PO DAILY 07/09/18 Multivitamin [Multiple Vitamins] 1 each PO DAILY 07/09/18 Ranolazine [Ranexa] 500 mg PO BID 07/09/18 Amlodipine Besylate [Norvasc -] 10 mg PO DAILY #10 tablet 07/15/18 Cefuroxime Axetil [Ceftin -] 250 mg PO BID #14 tablet 07/15/18 REVIEW OF SYSTEMS As per HPI PHYSICAL EXAMINATION Vital Signs - 24 hr 09/29/18 15:11 Temperature 97.5 F L Pulse Rate 105 H Respiratory 20 Rate Blood Pressure 111/68 O2 Sat by Pulse 97 Oximetry (%) GENERAL: A&Ox3, NAD HEENT: NC/AT, EOMI, PERRLA, MMM LUNGS: CTA b/l HEART: RRR no m/r/g ABDOMEN: +bs, soft, NT, ND UPPER EXTREMITIES: 2+ pulses, warm, well-perfused. No cyanosis. No clubbing. No peripheral edema. LOWER EXTREMITIES: 2+ pulses, warm, well-perfused. No calf tenderness. No peripheral edema. NEUROLOGICAL: manager money, motor, sensory systems w/o focal deficit PSYCHIATRIC: Cooperative. Good eye contact. Appropriate mood and affect. SKIN: Warm, dry, normal turgor, no rashes or lesions noted, normal capillary refill. Laboratory Results - last 24 hr 09/29/18 09/29/18 09/29/18 15:02 16:32 16:32 WBC 3.9 L RBC 3.41 L Hgb 9.7 L Hct 29.1 L MCV 85.3 MCH 28.4 MCHC 33.2 RDW 13.7 Plt Count 267 MPV 7.3 L Absolute Neuts (auto) 2.4 Neutrophils % 59.8 D Lymphocytes % 28.3 D Monocytes % 9.3 Eosinophils % 2.0 Basophils % 0.6 Nucleated RBC % 0 PT with INR 11.40 INR 0.97 Sodium Potassium Chloride Carbon Dioxide Anion Gap BUN Creatinine Creat Clearance w eGFR POC Glucometer 133 Random Glucose Calcium Magnesium Total Bilirubin AST ALT Alkaline Phosphatase Troponin I B-Natriuretic Peptide Total Protein Albumin Urine Color Urine Appearance Urine pH Ur Specific [place] Urine Protein Urine Glucose (UA) Urine Ketones Urine Blood Urine Nitrite Urine Bilirubin Urine Urobilinogen Ur Leukocyte Esterase Blood Type Antibody Screen 09/29/18 09/29/18 09/29/18 16:32 16:32 16:32 WBC RBC Hgb Hct MCV MCH MCHC RDW Plt Count MPV Absolute Neuts (auto) Neutrophils % Lymphocytes % Monocytes % Eosinophils % Basophils % Nucleated RBC % PT with INR INR Sodium 138 Potassium 4.5 Chloride 101 Carbon Dioxide 28 Anion Gap 9 BUN 48 H Creatinine 2.4 H Creat Clearance w eGFR 25.74 POC Glucometer Random Glucose 126 H Calcium 9.0 Magnesium 2.2 Total Bilirubin 0.3 AST 19 ALT 13 Alkaline Phosphatase 85 Troponin I 0.02 B-Natriuretic Peptide 447.8 Total Protein 7.1 Albumin 3.5 Urine Color Urine Appearance Urine pH Ur Specific [place] Urine Protein Urine Glucose (UA) Urine Ketones Urine Blood Urine Nitrite Urine Bilirubin Urine Urobilinogen Ur Leukocyte Esterase Blood Type O POSITIVE Antibody Screen Negative 09/29/18 16:56 WBC RBC Hgb Hct MCV MCH MCHC RDW Plt Count MPV Absolute Neuts (auto) Neutrophils % Lymphocytes % Monocytes % Eosinophils % Basophils % Nucleated RBC % PT with INR INR Sodium Potassium Chloride Carbon Dioxide Anion Gap BUN Creatinine Creat Clearance w eGFR POC Glucometer Random Glucose Calcium Magnesium Total Bilirubin AST ALT Alkaline Phosphatase Troponin I B-Natriuretic Peptide Total Protein Albumin Urine Color Yellow Urine Appearance Clear Urine pH 7.0 D Ur Specific [place] 1.010 Urine Protein Negative Urine Glucose (UA) Negative Urine Ketones Negative Urine Blood Negative Urine Nitrite Negative Urine Bilirubin Negative Urine Urobilinogen 0.2 Ur Leukocyte Esterase Negative Blood Type Antibody Screen ASSESSMENT/PLAN: 88 y/o M w/ PMHx HTN, CAD, CKD, prostate Ca, chronic anginal pain, p/w 2 episodes of brief unresponsiveness and self-resolving L-sided CP #A: -DDx syncope more likely than seizure -BP low-normal -CAD -CKD -prostate Ca #P: -cardiology consulted -trending troponins -orthostatic VS -neuro checks -may consider neuro consult -restarted home ASA and Ranexa -holding home anti-hypertensives in light of low-normal BP -no IVF -f/u BMP, Mg, Phos -cardiac diet -heparin subq for DVT PPx -full code -observe on telemetry Visit type - Emergency Visit Emergency Visit: Yes ED Registration Date: 09/29/18 Care time: The patient presented to the Emergency Department on the above date and was hospitalized for further evaluation of their emergent condition. - New Patient This patient is new to me today: Yes Date on this admission: 09/29/18 - Critical Care Critical Care patient: No
[2018-09-29] MEDS: HEPARIN NA (PORCINE) 5,000 UNITS/ML 1ML VIAL SQ SCH (23:59)
[2018-09-29] MEDS: RANOLAZINE E.R. 500 MG TABLET (FP) PO SCH (23:59)
--- NOTE | 2018-09-30 01:35 | PDOC ---
Documentation entered by Sameera Lovelace SCRIBE, acting as scribe for Farzaneh Gerber MD. Farzaneh Gerber MD: This documentation has been prepared by the Radu soto Renju, SCRIBE, under my direction and personally reviewed by me in its entirety. I confirm that the documentation accurately reflects all work, treatment, procedures, and medical decision making performed by me. Attending Attestation - Resident Resident Name: José Antonio Clancy - ED Attending Attestation I have performed the following: I have examined & evaluated the patient, The case was reviewed & discussed with the resident, I agree w/resident's findings & plan, Exceptions are as noted - HPI HPI: 09/29/18 17:14 88 yo male had left sided chest pain today . He currently is at baseline. PMH prostate cancer,CAD 09/29/18 17:16 - Physicial Exam PE: 09/30/18 01:20 well appearing 88 yo male in no acute distress head ncat eyes breanna eomi neck no jvd cvs [id number] lungs cta b/l abd soft,no rebound extremities +1 edema b/l ankles neuro axox3 skin warm and dry 09/30/18 01:33 - Medical Decision Making 09/30/18 01:35 pt admitted to telemetry for syncope w/u
[2018-09-30] MEDS ORDERED: HEPARIN NA (PORCINE) 5,000 UNITS/ML 1ML VIAL ONE ×2 (06:44)
[2018-09-30] MEDS: HEPARIN NA (PORCINE) 5,000 UNITS/ML 1ML VIAL SQ SCH ×3 (06:47→22:37)
[2018-09-30 07:57] LABS: BASO % 0.8 % (0-2.0); EOS % 2.9 % (0-4.5); HEMATOCRIT 25.8 % (35.4-49); HEMOGLOBIN 8.7 GM/dL (11.7-16.9); MCH 28.3 pg (25.7-33.7); MCHC 33.7 g/dl (32.0-35.9); MEAN PLT VOLUME 7.3 fl (7.5-11.1); MONO % 11.4 % (3.8-10.2); NEUT % 41.9 % (42.8-82.8); PLATELET COUNT 245 K/MM3 (134-434); RBC 3.07 M/mm3 (4.00-5.60); RDW 13.8 % (11.9-15.9); WHITE BLOOD COUNT 4.6 K/mm3 (4.0-10.0)
[2018-09-30 08:01] LABS: ANION GAP 8 MMOL/L (8-16); BLOOD UREA NITROGEN 45 mg/dL (7-18); CALCIUM 8.8 mg/dL (8.5-10.1); CHLORIDE 107 mmol/L (98-107); CO2 27 mmol/L (21-32); CREATININE 2.3 mg/dL (0.55-1.3); GLUCOSE,RANDOM 107 mg/dL (74-106); MAGNESIUM 2.3 mg/dL (1.8-2.4); POTASSIUM 4.4 mmol/L (3.5-5.1); SODIUM 141 mmol/L (136-145)
--- NOTE | 2018-09-30 09:00 | CON.CARD ---
Cardiology Consult (text) - Consultation Consultation Note: cc: unresponsive hpi: 88 m hx htn, angina p/w unresponsiveness. Patient was at home, episode witnessed by , lasted about 1 min that he was unresponsive. Then felt L side chest pain without radiation for several minutes that resolved. No dyspnea , orthopnea, edema, diaphoresis. Was unresponsive while in ER for about 1 minute, per notes from ED patient was rigid at the time. Sees cardio at [facility] for htn. He denies cad/mi hx. Currently feels well, no chest pain, palps , dizziness, dyspnea pmh: per hpi psh: nc fam: no premature cad, scd social: no tob ros: per hpi; +fever, +n/v, no dysuria hematuria gib, +cough Ambulatory Orders Alfuzosin HCl [Uroxatral] 10 mg PO DAILY 07/09/18 Aspirin 81 mg PO DAILY 07/09/18 Chlorthalidone 25 mg PO DAILY 07/09/18 Enzalutamide [Xtandi] 160 mg PO DAILY 07/09/18 Hydralazine HCl 50 mg PO TID 07/09/18 Multivitamin [Multiple Vitamins] 1 each PO DAILY 07/09/18 Ranolazine [Ranexa] 500 mg PO BID 07/09/18 Losartan Potassium 100 mg PO DAILY 09/29/18 Lovastatin 10 mg PO HS 09/29/18 [place]-3 Fatty Acids/Fish Oil [Fish Oil 1,000 mg Capsule] 1 tab PO DAILY pe: Vital Signs Period Temp Pulse Resp BP Sys/Diez Pulse Ox Last 24 Hr 97.5 F-98.3 F 69-105 18-20 111-186/68-95 97-99 nad no jvd rrr s1s2 no mrg cta bl nl eff aaox3 no le e/c/c abd nt nd pos bs no jaundice diaphoresis pos dp pt no carotid bruits Laboratory Last Values WBC 4.6 K/mm3 (4.0-10.0) 09/30/18 06:20 RBC 3.07 M/mm3 (4.00-5.60) L 09/30/18 06:20 Hgb 8.7 GM/dL (11.7-16.9) L 09/30/18 06:20 Hct 25.8 % (35.4-49) L 09/30/18 06:20 MCV 84.0 fl (80-96) 09/30/18 06:20 MCH 28.3 pg (25.7-33.7) 09/30/18 06:20 MCHC 33.7 g/dl (32.0-35.9) 09/30/18 06:20 RDW 13.8 % (11.9-15.9) 09/30/18 06:20 Plt Count 245 K/MM3 (134-434) 09/30/18 06:20 MPV 7.3 fl (7.5-11.1) L 09/30/18 06:20 Absolute Neuts (auto) 1.9 K/mm3 (1.5-8.0) 09/30/18 06:20 Neutrophils % 41.9 % (42.8-82.8) L D 09/30/18 06:20 Lymphocytes % 43.0 % (8-40) H D 09/30/18 06:20 Monocytes % 11.4 % (3.8-10.2) H 09/30/18 06:20 Eosinophils % 2.9 % (0-4.5) 09/30/18 06:20 Basophils % 0.8 % (0-2.0) 09/30/18 06:20 Nucleated RBC % 0 % (0-0) 09/30/18 06:20 PT with INR 11.40 SEC (9.7-13.0) 09/29/18 16:32 INR 0.97 (0.83-1.09) 09/29/18 16:32 Sodium 141 mmol/L (136-145) 09/30/18 06:20 Potassium 4.4 mmol/L (3.5-5.1) 09/30/18 06:20 Chloride 107 mmol/L (98-107) 09/30/18 06:20 Carbon Dioxide 27 mmol/L (21-32) 09/30/18 06:20 Anion Gap 8 MMOL/L (8-16) 09/30/18 06:20 BUN 45 mg/dL (7-18) H 09/30/18 06:20 Creatinine 2.3 mg/dL (0.55-1.3) H 09/30/18 06:20 Creat Clearance w eGFR 27.03 (>60) 09/30/18 06:20 POC Glucometer 133 UNITS (80-120) 09/29/18 15:02 Random Glucose 107 mg/dL (74-106) H 09/30/18 06:20 Calcium 8.8 mg/dL (8.5-10.1) 09/30/18 06:20 Phosphorus 4.0 mg/dL (2.5-4.9) 09/30/18 06:20 Magnesium 2.3 mg/dL (1.8-2.4) 09/30/18 06:20 Total Bilirubin 0.3 mg/dL (0.2-1) 09/29/18 16:32 AST 19 U/L (15-37) 09/29/18 16:32 ALT 13 U/L (13-61) 09/29/18 16:32 Alkaline Phosphatase 85 U/L (45-117) 09/29/18 16:32 Troponin I 0.03 ng/ml (0.00-0.05) 09/30/18 06:20 B-Natriuretic Peptide 447.8 pg/ml (5-450) 09/29/18 16:32 Total Protein 7.1 g/dl (6.4-8.2) 09/29/18 16:32 Albumin 3.5 g/dl (3.4-5.0) 09/29/18 16:32 Urine Color Yellow 09/29/18 16:56 Urine Appearance Clear 09/29/18 16:56 Urine pH 7.0 (5.0-8.0) D 09/29/18 16:56 Ur Specific [place] 1.010 (1.010-1.035) 09/29/18 16:56 Urine Protein Negative (NEGATIVE) 09/29/18 16:56 Urine Glucose (UA) Negative (NEGATIVE) 09/29/18 16:56 Urine Ketones Negative (NEGATIVE) 09/29/18 16:56 Urine Blood Negative (NEGATIVE) 09/29/18 16:56 Urine Nitrite Negative (NEGATIVE) 09/29/18 16:56 Urine Bilirubin Negative (NEGATIVE) 09/29/18 16:56 Urine Urobilinogen 0.2 mg/dL (0.2-1.0) 09/29/18 16:56 Ur Leukocyte Esterase Negative (NEGATIVE) 09/29/18 16:56 Blood Type O POSITIVE 09/29/18 16:32 Antibody Screen Negative 09/29/18 16:32 cxr: no chf ecg: sr, 1st deg AVB, no ischemic changes, nl qtc Echo 06/27: nl LVEF. nl RV. no signif valve abnormality tele: sinus a/p: 88 m hx htn, angina, here with unresponsiveness unresponsiveness, chest pain - trop neg x2, EKG stable - unlikely ACS - monitoring on tele - no events - echo nl EF with no significant valvular abnormality 06/2018 - cont home ranexa htn: -restart home hydralazine, amlodipine - per last dc summary angina: -carries this dx, details of prior CAD (if any) unknown. follows with [facility] -no signs acs here -normal LV function on echo 06/2018 -no angina sx's here -cont home meds incl Ranexa as QT normal here--f/u as outpt with outside cardio CKD -Cr 2.3, similar to prior dc 07/2018
[2018-09-30] MEDS ORDERED: hydrALAZINE HCL 25 MG TABLET (FP) PO SCH (10:09)
[2018-09-30] MEDS ORDERED: hydrALAZINE HCL 25 MG TABLET (FP) ONE ×3 (10:16→22:31)
[2018-09-30] MEDS: ASPIRIN 81 MG CHEWABLE TABLETS PO SCH (10:18)
[2018-09-30] MEDS: RANOLAZINE E.R. 500 MG TABLET (FP) PO SCH ×2 (10:18→23:19)
[2018-09-30] MEDS ORDERED: amLODIPine BESYLATE 5 MG TABLET (FP) ONE (10:19)
[2018-09-30] MEDS: hydrALAZINE HCL 25 MG TABLET (FP) PO SCH ×3 (10:19→22:48)
[2018-09-30] MEDS ORDERED: ASPIRIN 81 MG CHEWABLE TABLETS ONE (10:20)
[2018-09-30] MEDS: amLODIPine BESYLATE 10 MG TABLET (FP) PO SCH (10:23)
--- NOTE | 2018-09-30 10:29 | EKG ---
Test Reason : Blood Pressure : / mmHG Vent. Rate : 097 BPM Atrial Rate : 097 BPM P-R Int : 216 ms QRS Dur : 090 ms QT Int : 348 ms P-R-T Axes : 047 005 051 degrees QTc Int : 441 ms SINUS RHYTHM WITH 1ST DEGREE A-V BLOCK CANNOT RULE OUT ANTERIOR INFARCT , AGE UNDETERMINED ABNORMAL ECG WHEN COMPARED WITH ECG OF 09-JUL-2018 18:56, NO SIGNIFICANT CHANGE WAS FOUND Confirmed by AG DAILEY, SHANNA ([id number]) on 09/30/2018 10:28:34 AM Referred By: Confirmed By:SHANNA LUONG MD
--- NOTE | 2018-09-30 11:14 | PN ---
Progress Note, Physician History of Present Illness: 88 y/o M w/ PMHx HTN, CAD, CKD, prostate Ca, chronic anginal pain, p/w 2 episodes of brief unresponsiveness and self-resolving L-sided CP - Current Medication List Current Medications: Active Medications Amlodipine Besylate (Norvasc -) 10 mg PO DAILY [facility] Last Admin: 09/30/18 10:23 Dose: 10 mg Aspirin (Asa -) 81 mg PO DAILY [facility] Last Admin: 09/30/18 10:18 Dose: 81 mg Heparin Sodium (Porcine) (Heparin -) 5,000 unit SQ TID [facility] Last Admin: 09/30/18 06:47 Dose: 5,000 unit Hydralazine HCl (Apresoline -) 50 mg PO TID [facility] Last Admin: 09/30/18 10:19 Dose: 50 mg Ranolazine (Ranexa -) 500 mg PO BID [facility] Last Admin: 09/30/18 10:18 Dose: 500 mg - Objective Vital Signs: Vital Signs Temperature 98.0 F 09/30/18 08:30 Pulse Rate 80 09/30/18 08:30 Respiratory Rate 18 09/30/18 08:30 Blood Pressure 193/120 H 09/30/18 10:07 O2 Sat by Pulse Oximetry (%) 99 09/30/18 08:30 Cardiovascular: Yes: S1, S2 Respiratory: Yes: Regular, CTA Bilaterally Gastrointestinal: Yes: Normal Bowel Sounds, Soft. No: Tenderness Labs: CBC, BMP 09/30/18 06:20 09/30/18 06:20 INR, PTT INR 0.97 (0.83-1.09) 09/29/18 16:32 Problem List - Problems (1) Anemia Assessment/Plan: -monitor Code(s): D64.9 - ANEMIA, UNSPECIFIED (2) Syncope Assessment/Plan: -cardiology consulted -trending troponins -orthostatic VS -Resume bp meds and monitor -observe on telemetry Code(s): R55 - SYNCOPE AND COLLAPSE (3) HTN (hypertension) Assessment/Plan: resume meds monitor bp Code(s): I10 - ESSENTIAL (PRIMARY) HYPERTENSION
[2018-09-30] MEDS ORDERED: ATORVASTATIN CA 10 MG TABLET (FP) PO SCH (22:00)
[2018-09-30] MEDS ORDERED: ATORVASTATIN CA 10 MG TABLET (FP) ONE (22:31)
[2018-09-30 23:32] VITALS: BMI 32.1
[2018-10-01] MEDS: hydrALAZINE HCL 25 MG TABLET (FP) PO SCH ×2 (05:38→13:25)
[2018-10-01] MEDS: HEPARIN NA (PORCINE) 5,000 UNITS/ML 1ML VIAL SQ SCH ×2 (05:38→13:26)
[2018-10-01] MEDS: RANOLAZINE E.R. 500 MG TABLET (FP) PO SCH (09:13)
[2018-10-01] MEDS: amLODIPine BESYLATE 10 MG TABLET (FP) PO SCH (09:13)
[2018-10-01] MEDS: ASPIRIN 81 MG CHEWABLE TABLETS PO SCH (09:13)
[2018-10-01] MEDS ORDERED: PATIENT'S OWN MEDICATION (NON-FORMULARY) (Enzalutamide [Xtandi] 160 MG) PO SCH (10:00)
--- NOTE | 2018-10-01 11:06 | PN ---
Progress Note (short form) - Note Progress Note: s: no cp sob palps dizzy o: Vital Signs Period Temp Pulse Resp BP Sys/Diez Pulse Ox Last 24 Hr 97.5 F-97.9 F 77-92 16-20 148-186/88-109 97-99 nad no jvd rrr s1s2 no mrg cta bl nl eff aaox3 no le e/c/c abd nt nd pos bs no jaundice diaphoresis pos dp pt no carotid bruits Current Medications Generic Name Dose Route Start Last Admin Trade Name Freq PRN Reason Stop Dose Admin Amlodipine Besylate 10 mg 09/30/18 10:15 10/01/18 09:13 Norvasc - PO 10 mg DAILY BEULAH Administration Aspirin 81 mg 09/30/18 10:00 10/01/18 09:13 Asa - PO 81 mg DAILY BEULAH Administration Atorvastatin Calcium 10 mg 09/30/18 22:00 09/30/18 22:37 Lipitor - PO 10 mg HS BEULAH Administration Heparin Sodium (Porcine) 5,000 unit 09/29/18 22:00 10/01/18 05:38 Heparin - SQ 5,000 unit TID BEULAH Administration Hydralazine HCl 50 mg 09/30/18 10:15 10/01/18 05:38 Apresoline - PO 50 mg TID BEULAH Administration Non-Formulary Medication 160 mg 10/01/18 10:00 Enzalutamide [Xtandi] PO DAILY BEULAH Ranolazine 500 mg 09/29/18 22:00 10/01/18 09:13 Ranexa - PO 500 mg BID BEULAH Administration CBC, BMP 09/30/18 06:20 09/30/18 06:20 cxr: no chf ecg: sr, 1st deg AVB, no ischemic changes, nl qtc Echo 06/27: nl LVEF. nl RV. no signif valve abnormality tele: sinus a/p: 88 m hx htn, angina, here with unresponsiveness unresponsiveness, chest pain - trop neg x2, EKG stable - unlikely ACS - monitoring on tele - no events - echo nl EF with no significant valvular abnormality 06/2018 - ortho vitals wnl - cont home ranexa htn: -restart home hydralazine, amlodipine - per last dc summary angina: -carries this dx, details of prior CAD (if any) unknown. follows with [facility] -no signs acs here -normal LV function on echo 06/2018 -no angina sx's here -cont home meds incl Ranexa as QT normal here--f/u as outpt with outside cardio CKD -Cr 2.3, similar to prior dc 07/2018 cardiac rod stable for dc
[2018-10-01 14:12] VITALS: BP 159/90; PULSE 85; TEMP 97.8
--- NOTE | 2018-10-01 15:08 | DS ---
Physical Examination Vital Signs: Vital Signs Temperature 97.8 F 10/01/18 14:11 Pulse Rate 85 10/01/18 14:11 Respiratory Rate 16 10/01/18 14:11 Blood Pressure 159/90 10/01/18 14:11 O2 Sat by Pulse Oximetry (%) 99 10/01/18 10:00 Constitutional: Yes: Calm Cardiovascular: Yes: Regular Rate and Rhythm, S1, S2 Respiratory: Yes: CTA Bilaterally Gastrointestinal: Yes: Normal Bowel Sounds, Soft Edema: No Neurological: Yes: Alert, Oriented Labs: CBC, BMP 09/30/18 06:20 09/30/18 06:20 Discharge Summary Reason For Visit: INJURY OF KIDNEY, ANEMIA,CHRONIC KIDNEY DISEASE, Current Active Problems Anemia (Acute) CKD (chronic kidney disease) (Acute) Kidney injury (Acute) Prostate cancer (Acute) Syncope (Acute) Hospital Course: Patient is an 88 y/o M w/ PMHx HTN, CAD, CKD, prostate Ca, chronic anginal pain , p/w unresponsive episode witnessed by at home for ~1 minute, subsequently developing L-sided chest pain w/o radiation for several minutes which resolved. No nausea/vomiting/diaphoresis. Was brought to ED and again became unresponsive for ~1 minute, no tonic-clonic activity, incontinence, tongue-biting, post-ictal period however per ED signout Pt was observed to be very rigid at that time. Afebrile, borderline tachycardic, otherwise stable vitals on presentation. Labs unremarkable: anemia is chronic 2/2 CKD, Cr at baseline, troponin negative x 1. EKG showing 1st degree AV block without acute ST or T-wave changes. 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 Received ASA and 1L bolus NS in ED. Was asymptomatic at time of encounter. admitted to telemtery work up negative echo normal EKG and cardiac enzymes negative continue ranexa and statin CKD cr stable at 2.3 Condition: Stable - Instructions Referrals: Jairon Kirk MD [Staff Physician] - 2 Weeks Disposition: HOME - Home Medications Comprehensive Discharge Medication List: Ambulatory Orders Alfuzosin HCl [Uroxatral] 10 mg PO DAILY 07/09/18 Aspirin 81 mg PO DAILY 07/09/18 Chlorthalidone 25 mg PO DAILY 07/09/18 Enzalutamide [Xtandi] 160 mg PO DAILY 07/09/18 Hydralazine HCl 50 mg PO TID 07/09/18 Multivitamin [Multiple Vitamins] 1 each PO DAILY 07/09/18 Ranolazine [Ranexa] 500 mg PO BID 07/09/18 Losartan Potassium 100 mg PO DAILY 09/29/18 Lovastatin 10 mg PO HS 09/29/18 [place]-3 Fatty Acids/Fish Oil [Fish Oil 1,000 mg Capsule] 1 tab PO DAILY
== END 2018-10-01 15:56 | disposition home or self-care (01) ==
LOC: JER 14:53 → JERBED 19:40 → J4S 09-30 22:56
PROVIDERS: ADMIT Family Medicine; ATTEND Family Medicine
PROC: 3E0337Z Introduction of Electrolytic and Water Balance Substance into Peripheral Vein, Percutaneous Approach (ICD-10-PCS; principal; 2018-09-29)
PROC: 3E013GC Introduction of Other Therapeutic Substance into Subcutaneous Tissue, Percutaneous Approach (ICD-10-PCS; 2018-09-29)
DX: R55 Syncope and collapse (principal); R07.9 Chest pain, unspecified; I12.9 Hypertensive chronic kidney disease with stage 1 through stage 4 chronic kidney disease, or unspecified chronic kidney disease; N18.9 Chronic kidney disease, unspecified; N17.9 Acute kidney failure, unspecified; I25.119 Atherosclerotic heart disease of native coronary artery with unspecified angina pectoris; N40.0 Benign prostatic hyperplasia without lower urinary tract symptoms; D64.9 Anemia, unspecified; Z85.46 Personal history of malignant neoplasm of prostate; Z79.82 Long term (current) use of aspirin
CPT/HCPCS: 36415; 70450-TC; 71046-TC-FY; 80048; 80053; 81003; 82962; 83735; 83880; 84100; 84484; 85025; 85610; 86850; 86900; 86901; 93005; 93010; 93880-TC; 96360; 96372; 99285-25; G0378; J1644; J7030

== ENCOUNTER 2019-03-14 13:38 | Emergency (ER) | payer OTHER ==
[2019-03-14 13:57] VITALS: BP 122/73; PULSE 77; TEMP 97.9; BMI 31.3
--- NOTE | 2019-03-14 14:04 | PDOC ---
History of Present Illness - General Chief Complaint: Weakness Stated Complaint: SEIZURE Time Seen by Provider: 03/14/19 14:03 History Source: Patient, Spouse Exam Limitations: Language Barrier (russian) - History of Present Illness Initial Comments: 03/14/19 14:52 Marcos Jacques is a 89yM w PMHx of HTN, CAD, Prostate Ca, chronic anginal pain and BPH presenting with weakness. This morning took BP meds (hydralazine) without eating breakfast. He felt weak for 10min while waiting in car later this morning , self-resolved. Went home after orthodoxy to eat, and went to ED at 's urging. Currently denies any symptoms. Denies fever, headache, nausea/vomiting, cough, SOB, chest/AB pain, urinary /bowel movement changes. Past History - Past Medical History Allergies/Adverse Reactions: Allergies Allergy/AdvReac Type Severity Reaction Status Date / Time No Known Allergies Allergy Verified 09/29/18 15:10 Home Medications: Ambulatory Orders Alfuzosin HCl [Uroxatral] 10 mg PO DAILY 07/09/18 Aspirin 81 mg PO DAILY 07/09/18 Enzalutamide [Xtandi] 160 mg PO DAILY 07/09/18 Hydralazine HCl 50 mg PO TID 07/09/18 Multivitamin [Multiple Vitamins] 1 each PO DAILY 07/09/18 Ranolazine [Ranexa] 500 mg PO BID 07/09/18 Lovastatin 10 mg PO HS 09/29/18 [place]-3 Fatty Acids/Fish Oil [Fish Oil 1,000 mg Capsule] 1 tab PO DAILY Amlodipine Besylate [Norvasc -] 10 mg PO DAILY tablet 10/01/18 Cancer: Yes (prostate) Cardiac Disorders: Yes (angina) CVA: No COPD: No CHF: No Dementia: No Diabetes: No GI Disorders: No Disorders: No HTN: Yes Hypercholesterolemia: Yes Liver Disease: No Seizures: No Thyroid Disease: No - Psycho Social/Smoking Cessation Hx Smoking History: Never smoked Have you smoked in the past 12 months: No Hx Alcohol Use: No Drug/Substance Use Hx: No Substance Use Type: None Hx Substance Use Treatment: No Review of Systems - Review of Systems Constitutional: No: Chills, Fever HEENTM: No: Eye Pain, Nose Pain, Throat Pain, Mouth Pain Respiratory: No: Cough, Shortness of Breath Cardiac (ROS): No: Chest Pain, Edema, Palpitations, Syncope ABD/GI: No: Abdominal Distended, Constipated, Diarrhea, Nausea, Vomiting : No: Burning, Dysuria, Discharge, Frequency, Flank Pain Musculoskeletal: No: Back Pain, Joint Pain, Joint Swelling, Muscle Pain Integumentary: No: Bruising, Dryness, Erythema Neurological: No: Headache, Numbness, Seizure, Tingling, Tremors Psychiatric: No: Anxiety, Depression, Stressors Endocrine: No: Excessive Sweating, Flushing, Intolerance to Cold, Intolerance to Heat Hematologic/Lymphatic: No: Anemia, Blood Clots, Easy Bleeding *Physical Exam - Vital Signs Last Vital Signs Temp Pulse Resp BP Pulse Ox 97.9 F 77 18 122/73 0 L 03/14/19 13:53 03/14/19 13:53 03/14/19 13:53 03/14/19 13:53 03/14/19 13:53 - Physical Exam General Appearance: Yes: Nourished, Appropriately Dressed. No: Apparent Distress HEENT: positive: EOMI, NADIR, Normal Voice, Hearing Grossly Normal. negative: Scleral Icterus (R), Scleral Icterus (L), Nasal Congestion, Rhinorrhea Respiratory/Chest: positive: Lungs Clear, Normal Breath Sounds. negative: Chest Tender, Respiratory Distress, Crackles, Rales, Rhonchi, Stridor, Wheezing Cardiovascular: positive: Regular Rhythm, Regular Rate, S1, S2. negative: Edema , Murmur Gastrointestinal/Abdominal: positive: Normal Bowel Sounds, Flat, Soft. negative : Tender, Organomegaly, Distended, Guarding, Rebound Musculoskeletal: negative: CVA Tenderness (R), CVA Tenderness (L) Extremity: positive: Normal Capillary Refill. negative: Pedal Edema Integumentary: positive: Normal Color Neurologic: positive: portfolio manager II-XII NML intact, Fully Oriented, Alert, Normal Mood/ Affect, Normal Response, Motor Strength 5/5, Responsive. negative: Facial Droop , Numbness, Confused, Disoriented ED Treatment Course - LABORATORY CBC & Chemistry Diagram: 03/14/19 15:00 03/14/19 15:00 Medical Decision Making - Medical Decision Making 03/14/19 14:32 CBC CMP trop UA CXR EKG orthostatics POC glucose 161, CBC normal, Cr 2.8 (baseline), no UTI on UA neg tropx2 CXR shows clear lung fabian, cardiomegaly EKG shows sinus rhythm w 1st degree AV block, HR 78, QTc 467 Marcos Jacques is a 89yM w PMHx of HTN, CAD, Prostate Ca, chronic anginal pain and BPH presenting with weakness. Likely d/t hypotension after taking morning BP meds without food. No evidence of ACS w neg tropx2, NSR EKG, no lung infection on CXR, no evidence of UTI. Neuro intact, no focal neural deficits lowering concern for stroke, not dehydrated on exam, pt given PO fluids and ambulated without assistance. D/c home Discharge - Discharge Information Problems reviewed: Yes Clinical Impression/Diagnosis: Weakness Condition: Good Disposition: HOME - Admission No - Follow up/Referral - Patient Discharge Instructions Patient Printed Discharge Instructions: DI for Muscle Weakness Additional Instructions: You were seen for weakness. Your labs and imaging do not show anything concerning Please eat before taking your medication and drink lots of fluid. Come back to the ED if you lose consciousness, have chest pain, or shortness of breath --- Te vieron por debilidad. Sana laboratorios e imgenes no muestran nada relacionado Coma antes de wily penny medicamento y otoniel mucho lquido. Regrese al servicio de urgencias si pierde el conocimiento, tiene dolor en el pecho o falta de aliento - Post Discharge Activity
--- NOTE | 2019-03-14 14:29 | PDOC ---
Attending Attestation - Resident Resident Name: Rafa Mera - ED Attending Attestation I have performed the following: I have examined & evaluated the patient, The case was reviewed & discussed with the resident, I agree w/resident's findings & plan, Exceptions are as noted - HPI HPI: 03/14/19 14:43 89y M hx of htn, bph, prostate ca, chronic angina presents with an episode of generalized weakness just prior to presentation. Pt notes he was doing well this morning, had skipped breakfast, and just prior to presentatio nhad an episode of genrealized weakness/malaise lasting approximtely 10 min before resolving. The noted he looked very weak. denies any associated chest pain , headche, palpiaions, fever/chills., nv, cough, abd pain, dysuria, diarrhea, melena, bpr. pt currently asympmatic but would like to eat something. PCP: Dr. Ilan Villaseñor Uro: Dr. Harris Cards: [facility] but pt does not know their name - Physicial Exam PE: 03/14/19 15:04 GENERAL: The patient is awake, alert, and fully oriented, Nontoxic - in no acute distress. HEAD: Normocephalic, atraumatic. EYES: extraocular movements intact, sclera anicteric, conjunctiva clear. ENT: Normal voice, Moist mucous membranes. NECK: Normal range of motion, supple LUNGS: Breath sounds equal, clear to auscultation bilaterally. No wheezes, no rhonchi, no rales. HEART: Regular rate and rhythm, normal S1 and S2 without murmur, rub or gallop. ABDOMEN: Soft, nontender, No guarding, no rebound. No CVA tenderness EXTREMITIES: Normal range of motion, no edema. NEUROLOGICAL: No facial assymetry, Normal speech, PSYCH: Normal mood, normal affect. SKIN: Warm, Dry, normal turgor, - Medical Decision Making 03/14/19 15:04 89y M presenting with epsiode of generalized wekanes without an yfocal compliaints will obtain basic labs to r/o anemia, metabolic derngement, will feed pt as xander be related o no having eaten all day consiered acs will obtain labs, ekg will erasses 03/14/19 16:44 labs reviewed - noted for ckd slightly above baseline trop neg x 1 will obtain another trop. pt remains asypmtmatic. if neg anticipate dc with pmd fu Heart Score/ECG Review - ECG Impressions Comment:: 03/14/19 15:09 Twelve-lead EKG was performed and reviewed by me. There is normal sinus rhythm with a normal rate. Rate is 78 First-degree AV block Nonspecific T wave changes QT prolongation
[2019-03-14 15:21] LABS: BASO % 0.6 % (0-2.0); EOS % 1.7 % (0-4.5); HEMATOCRIT 36.6 % (35.4-49); LYMPH % 40.2 % (8-40); MCH 25.7 pg (25.7-33.7); MCHC 32.8 g/dl (32.0-35.9); MEAN CELL VOLUME 78.4 fl (80-96); MEAN PLT VOLUME 7.5 fl (7.5-11.1); NEUT % 48.5 % (42.8-82.8); PLATELET COUNT 258 K/MM3 (134-434); RBC 4.68 M/mm3 (4.00-5.60); RDW 18.2 % (11.9-15.9); WHITE BLOOD COUNT 4.3 K/mm3 (4.0-10.0)
[2019-03-14 15:40] LABS: ALBUMIN 3.9 g/dl (3.4-5.0); BILIRUBIN,TOTAL 0.4 mg/dL (0.2-1); BLOOD UREA NITROGEN 54.8 mg/dL (7-18); CREATININE 2.8 mg/dL (0.55-1.3); TOT PROT 8.2 g/dl (6.4-8.2)
[2019-03-14 17:41] LABS: PH,URINE 6.5 (5.0-8.0); URINE APPEARANCE CLEAR; URINE BILIRUBIN NEGATIVE (NEGATIVE); URINE COLOR YELLOW; URINE GLUCOSE (UA) NEGATIVE (NEGATIVE); URINE KETONE NEGATIVE (NEGATIVE); URINE NITRITE NEGATIVE (NEGATIVE); URINE PROTEIN 1+ (NEGATIVE); URINE UROBILINOGEN 0.2 mg/dL (0.2-1.0)
[2019-03-14 17:42] LABS: URINE LEUK ESTERASE TRACE (NEGATIVE)
[2019-03-14 17:44] LABS: URINE RBC 0-3 /hpf (0-4)
[2019-03-14 17:45] LABS: URINE BACTERIA FEW /hpf (NEGATIVE); URINE WBC 0-3 /hpf (0-5)
--- NOTE | 2019-03-15 10:26 | EKG ---
Test Reason : Blood Pressure : / mmHG Vent. Rate : 078 BPM Atrial Rate : 078 BPM P-R Int : 280 ms QRS Dur : 100 ms QT Int : 410 ms P-R-T Axes : 053 -01 071 degrees QTc Int : 467 ms SINUS RHYTHM WITH 1ST DEGREE A-V BLOCK NONSPECIFIC T WAVE ABNORMALITY PROLONGED QT ABNORMAL ECG WHEN COMPARED WITH ECG OF 29-SEP-2018 14:58, NO SIGNIFICANT CHANGE WAS FOUND Confirmed by MINISTERIO DAILEY, LEN ([id number]) on 03/15/2019 10:25:56 AM Referred By: Confirmed By:LEN MANDEL MD
== END 2019-03-14 18:54 | disposition home or self-care (01) ==
LOC: JER 13:38
DX: R53.1 Weakness (principal); I25.118 Atherosclerotic heart disease of native coronary artery with other forms of angina pectoris; I10 Essential (primary) hypertension; E78.00 Pure hypercholesterolemia, unspecified; N40.0 Benign prostatic hyperplasia without lower urinary tract symptoms; C61 Malignant neoplasm of prostate
CPT/HCPCS: 36415; 71046-TC-FY; 80053; 81003; 82550; 82962; 84484; 85025; 87086; 87186; 93005; 93010; 99283-25

== ENCOUNTER 2019-06-30 18:46 | Emergency (ER) | payer OTHER ==
[2019-06-30 19:02] VITALS: BP 180/84; PULSE 79; TEMP 97.9; BMI 34.4
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
== END 2019-06-30 21:23 | disposition home or self-care (01) ==
LOC: JERFT 18:46
DX: S09.8XXA Other specified injuries of head, initial encounter (principal); M54.2 Cervicalgia; M25.561 Pain in right knee; V43.62XA Car passenger injured in collision with other type car in traffic accident, initial encounter; Y92.414 Local residential or business street as the place of occurrence of the external cause; Y93.89 Activity, other specified; Y99.8 Other external cause status; I25.119 Atherosclerotic heart disease of native coronary artery with unspecified angina pectoris; I10 Essential (primary) hypertension; E78.00 Pure hypercholesterolemia, unspecified; Z85.46 Personal history of malignant neoplasm of prostate
CPT/HCPCS: 70450-TC; 99281-25

== ENCOUNTER 2020-05-12 22:44 | Inpatient (IN) | payer OTHER ==
[2020-05-12 22:50] VITALS: BMI 32.8
[2020-05-13] MEDS ORDERED: SODIUM CHLORIDE 0.9% 500 ML INFUS.BAG IV ONE ×2 (00:59→05:27)
[2020-05-13] MEDS ORDERED: ACETAMINOPHEN 1000 MG/100 ML BAG IVPB ONE (01:40)
[2020-05-13] MEDS ORDERED: ACETAMINOPHEN INJECTION 100 ML IVPB ONE (01:47)
[2020-05-13 02:05] LABS: BASO % 0.2 % (0-2.0); EOS % 0.4 % (0-4.5); HEMATOCRIT 36.6 % (35.4-49); LYMPH % 17.4 % (8-40); MCH 27.2 pg (25.7-33.7); MCHC 32.9 g/dl (32.0-35.9); MEAN CELL VOLUME 82.8 fl (80-96); MEAN PLT VOLUME 7.9 fl (7.5-11.1); MONO % 9.9 % (3.8-10.2); NEUT % 72.1 % (42.8-82.8); PLATELET COUNT 242 K/MM3 (134-434); RBC 4.42 M/mm3 (4.00-5.60); RDW 14.5 % (11.9-15.9)
[2020-05-13 02:15] LABS: INR 1.02 (0.83-1.09); PROTHROMBIN TIME (PATIENT) 12.3 SEC (9.7-13.0)
[2020-05-13 02:18] LABS: CALCIUM 9.3 mg/dL (8.5-10.1)
[2020-05-13 02:19] LABS: ALBUMIN 3.8 g/dl (3.4-5.0); BLOOD UREA NITROGEN 86.8 mg/dL (7-18)
[2020-05-13 02:23] LABS: BILIRUBIN,TOTAL 0.6 mg/dL (0.2-1); TOT PROT 8.1 g/dl (6.4-8.2)
[2020-05-13] MEDS ORDERED: ASPIRIN 81 MG CHEWABLE TABLETS PO ONE (05:40)
[2020-05-13] MEDS ORDERED: ASPIRIN 81 MG CHEWABLE TABLETS ONE (05:46)
[2020-05-13] MEDS ORDERED: HEPARIN NA (PORCINE) 5,000 UNITS/ML 1ML VIAL ONE (10:58)
[2020-05-13] MEDS: HEPARIN NA (PORCINE) 5,000 UNITS/ML 1ML VIAL SQ SCH ×2 (11:22→22:25)
[2020-05-13] MEDS ORDERED: SENNOSIDES 8.6MG TABLET (FP) PO PRN (14:30)
[2020-05-13] MEDS ORDERED: ACETAMINOPHEN 325 MG TABLET (FP) PO PRN (14:31)
[2020-05-13] MEDS ORDERED: MINERAL OIL ENEMA 133 ML ENEMA RC ONE (14:33)
[2020-05-13] MEDS: amLODIPine BESYLATE 10 MG TABLET (FP) PO SCH (15:05)
[2020-05-13] MEDS ORDERED: amLODIPine BESYLATE 5 MG TABLET (FP) ONE (15:15)
[2020-05-13 17:53] LABS: CALCIUM 8.9 mg/dL (8.5-10.1)
[2020-05-13 17:54] LABS: ALBUMIN 3.4 g/dl (3.4-5.0); BLOOD UREA NITROGEN 82.4 mg/dL (7-18)
[2020-05-13 17:57] LABS: CREATININE 3.6 mg/dL (0.55-1.3)
[2020-05-13 17:58] LABS: BILIRUBIN,TOTAL 0.6 mg/dL (0.2-1); TOT PROT 7.1 g/dl (6.4-8.2)
[2020-05-13] MEDS ORDERED: SODIUM CHLORIDE 0.45% 1,000 ML IV SCH (18:00)
[2020-05-13] MEDS: POLYETHYLENE GLYCOL 3350 119 GM BTL PO SCH (19:04)
[2020-05-13] MEDS: CARVEDILOL 6.25 MG TABLET (FP) PO SCH (22:25)
[2020-05-13] MEDS: SENNOSIDES 8.6MG TABLET (FP) PO SCH (22:25)
[2020-05-13] MEDS: RANOLAZINE E.R. 500 MG TABLET (FP) PO SCH (22:25)
[2020-05-13] MEDS: hydrALAZINE HCL 50 MG TABLET (FP) PO SCH (22:25)
[2020-05-14 00:43] LABS: PH,URINE 7.5 (5.0-8.0); URINE APPEARANCE CLEAR; URINE BILIRUBIN NEGATIVE (NEGATIVE); URINE COLOR YELLOW; URINE GLUCOSE (UA) NEGATIVE (NEGATIVE); URINE KETONE NEGATIVE (NEGATIVE); URINE LEUK ESTERASE NEGATIVE (NEGATIVE); URINE NITRITE NEGATIVE (NEGATIVE); URINE PROTEIN NEGATIVE (NEGATIVE); URINE UROBILINOGEN 0.2 mg/dL (0.2-1.0)
[2020-05-14] MEDS: hydrALAZINE HCL 50 MG TABLET (FP) PO SCH ×3 (05:47→21:04)
[2020-05-14] MEDS: KCL 10 MEQ IVPB 10 MEQ/100 ML INFUS.BAG IVPB SCH ×2 (06:52→08:06)
[2020-05-14] MEDS ORDERED: POTASSIUM CHLORIDE TABS 20 MEQ TABLET.ER (FP) PO ONE ×2 (07:00→17:37)
[2020-05-14 08:04] LABS: CALCIUM 8.2 mg/dL (8.5-10.1)
[2020-05-14 08:05] LABS: ALBUMIN 3.1 g/dl (3.4-5.0); BLOOD UREA NITROGEN 73.3 mg/dL (7-18)
[2020-05-14 08:08] LABS: CREATININE 3.3 mg/dL (0.55-1.3)
[2020-05-14 08:09] LABS: BILIRUBIN,TOTAL 0.6 mg/dL (0.2-1)
[2020-05-14] MEDS: TAMSULOSIN HCL 0.4 MG CAP PO SCH (09:07)
[2020-05-14] MEDS: HEPARIN NA (PORCINE) 5,000 UNITS/ML 1ML VIAL SQ SCH ×2 (09:08→21:01)
[2020-05-14] MEDS: ASPIRIN 81 MG CHEWABLE TABLETS PO SCH (09:08)
[2020-05-14] MEDS: RANOLAZINE E.R. 500 MG TABLET (FP) PO SCH ×2 (09:08→21:04)
[2020-05-14] MEDS: CARVEDILOL 6.25 MG TABLET (FP) PO SCH ×2 (09:08→21:04)
[2020-05-14] MEDS: amLODIPine BESYLATE 10 MG TABLET (FP) PO SCH (09:08)
[2020-05-14] MEDS: MULTIVITAMINS (DAILY MVI) TABLET (FP) PO SCH (09:08)
[2020-05-14] MEDS: POLYETHYLENE GLYCOL 3350 119 GM BTL PO SCH (09:09)
[2020-05-14] MEDS ORDERED: SODIUM CHLORIDE 0.45%/POT 20 MEQ/1,000 ML INFUS.BAG IV SCH (10:45)
[2020-05-14 13:50] LABS: MAGNESIUM 2.8 mg/dL (1.8-2.4)
[2020-05-14 17:15] LABS: BLOOD UREA NITROGEN 71.3 mg/dL (7-18); CALCIUM 8.3 mg/dL (8.5-10.1); MAGNESIUM 2.8 mg/dL (1.8-2.4)
[2020-05-14 17:18] LABS: CREATININE 3.4 mg/dL (0.55-1.3)
[2020-05-14] MEDS: SENNOSIDES 8.6MG TABLET (FP) PO SCH (21:04)
[2020-05-15] MEDS: hydrALAZINE HCL 50 MG TABLET (FP) PO SCH ×2 (06:37→14:12)
[2020-05-15 06:42] LABS: BLOOD UREA NITROGEN 64.3 mg/dL (7-18)
[2020-05-15 06:45] LABS: CREATININE 3.3 mg/dL (0.55-1.3)
[2020-05-15 06:46] LABS: BILIRUBIN,TOTAL 0.4 mg/dL (0.2-1)
[2020-05-15 06:47] LABS: TOT PROT 6.6 g/dl (6.4-8.2)
[2020-05-15] MEDS: CARVEDILOL 6.25 MG TABLET (FP) PO SCH (09:16)
[2020-05-15] MEDS: POLYETHYLENE GLYCOL 3350 119 GM BTL PO SCH (09:16)
[2020-05-15] MEDS: MULTIVITAMINS (DAILY MVI) TABLET (FP) PO SCH (09:16)
[2020-05-15] MEDS: ASPIRIN 81 MG CHEWABLE TABLETS PO SCH (09:16)
[2020-05-15] MEDS: RANOLAZINE E.R. 500 MG TABLET (FP) PO SCH (09:16)
[2020-05-15] MEDS: TAMSULOSIN HCL 0.4 MG CAP PO SCH (09:16)
[2020-05-15] MEDS: HEPARIN NA (PORCINE) 5,000 UNITS/ML 1ML VIAL SQ SCH (09:16)
[2020-05-15] MEDS: amLODIPine BESYLATE 10 MG TABLET (FP) PO SCH (09:16)
[2020-05-15 14:09] VITALS: BP 112/58; PULSE 69
[2020-05-15 14:15] VITALS: TEMP 97.3
== END 2020-05-15 18:00 | disposition home or self-care (01) | DRG 392 ==
LOC: JER 22:44 → JERBED 05-13 05:18 → J4S 05-13 20:46
PROVIDERS: ADMIT Family Medicine; ATTEND Family Medicine
DX: K59.09 Other constipation (principal); N17.9 Acute kidney failure, unspecified; E87.6 Hypokalemia; I25.10 Atherosclerotic heart disease of native coronary artery without angina pectoris; I10 Essential (primary) hypertension; N40.0 Benign prostatic hyperplasia without lower urinary tract symptoms; E78.00 Pure hypercholesterolemia, unspecified; I44.0 Atrioventricular block, first degree; E86.0 Dehydration; R74.8 Abnormal levels of other serum enzymes; N28.1 Cyst of kidney, acquired; I12.9 Hypertensive chronic kidney disease with stage 1 through stage 4 chronic kidney disease, or unspecified chronic kidney disease; N18.9 Chronic kidney disease, unspecified; Z85.46 Personal history of malignant neoplasm of prostate
CPT/HCPCS: 36415; 71045-TC-FY; 74176-TC; 76775-TC; 80048; 80053; 81003; 82436; 82550; 82565; 83735; 84133; 84300; 84484; 85025; 85610; 93005; 93010; 97116-GP; 97161-GP; 99285-25; C9803; J0131; J1644; J3480; U0003

== ENCOUNTER 2020-12-21 13:37 | Emergency (ER) | payer OTHER ==
[2020-12-21 13:51] VITALS: BMI 31.9
[2020-12-21 15:57] LABS: BASO % 0.9 % (0-2.0); EOS % 2.1 % (0-4.5); HEMATOCRIT 32.2 % (35.4-49); HEMOGLOBIN 10.5 GM/dL (11.7-16.9); LYMPH % 27.2 % (8-40); MCH 26.4 pg (25.7-33.7); MCHC 32.6 g/dl (32.0-35.9); MEAN PLT VOLUME 7.1 fl (7.5-11.1); NEUT % 59.8 % (42.8-82.8); PLATELET COUNT 227 10^3/uL (134-434); RBC 3.98 M/mm3 (4.00-5.60); WHITE BLOOD COUNT 4.6 K/mm3 (4.0-10.0)
[2020-12-21] MEDS ORDERED: ACETAMINOPHEN 500 MG TABLET (FP) PO ONE (16:05)
[2020-12-21 16:16] LABS: CALCIUM 8.3 mg/dL (8.5-10.1)
[2020-12-21 16:17] LABS: ALBUMIN 3.4 g/dl (3.4-5.0); BLOOD UREA NITROGEN 48.6 mg/dL (7-18)
[2020-12-21 16:20] LABS: CREATININE 2.7 mg/dL (0.55-1.3)
[2020-12-21 16:22] LABS: BILIRUBIN,TOTAL 0.3 mg/dL (0.2-1); TOT PROT 7.1 g/dl (6.4-8.2)
[2020-12-21] MEDS ORDERED: ACETAMINOPHEN 325 MG TABLET (FP) ONE (16:22)
[2020-12-21 17:05] VITALS: BP 145/80; PULSE 66; TEMP 98.2
== END 2020-12-21 17:06 | disposition home or self-care (01) ==
LOC: JER 13:37
DX: S42.212A Unspecified displaced fracture of surgical neck of left humerus, initial encounter for closed fracture (principal)
CPT/HCPCS: 36415; 73030-TC-LT-FY; 73060-TC-LT-FY; 80053; 85025; 93005; 93010; 99285-25

== ENCOUNTER 2020-12-21 19:15 | Observation (INO) | payer OTHER ==
[2020-12-21 19:40] VITALS: BMI 31.8
[2020-12-21 21:12] LABS: BASO % 0.3 % (0-2.0); EOS % 0.6 % (0-4.5); HEMATOCRIT 31.7 % (35.4-49); HEMOGLOBIN 10.4 GM/dL (11.7-16.9); LYMPH % 21.2 % (8-40); MCH 26.6 pg (25.7-33.7); MCHC 32.9 g/dl (32.0-35.9); MEAN PLT VOLUME 7.1 fl (7.5-11.1); MONO % 7.3 % (3.8-10.2); NEUT % 70.6 % (42.8-82.8); PLATELET COUNT 218 10^3/uL (134-434); RBC 3.91 M/mm3 (4.00-5.60); WHITE BLOOD COUNT 5.9 K/mm3 (4.0-10.0)
[2020-12-21 21:46] LABS: ALBUMIN 3.4 g/dl (3.4-5.0); CALCIUM 8.6 mg/dL (8.5-10.1); MAGNESIUM 2.5 mg/dL (1.8-2.4)
[2020-12-21 21:47] LABS: BLOOD UREA NITROGEN 47.3 mg/dL (7-18)
[2020-12-21 21:49] LABS: CREATININE 2.7 mg/dL (0.55-1.3); PHOSPHOROUS 4.2 mg/dL (2.5-4.9)
[2020-12-21 21:51] LABS: BILIRUBIN,TOTAL 0.3 mg/dL (0.2-1); TOT PROT 7.3 g/dl (6.4-8.2)
[2020-12-21 22:12] LABS: PH,URINE 6.5 (5.0-8.0); URINE APPEARANCE CLEAR; URINE BILIRUBIN NEGATIVE (NEGATIVE); URINE COLOR YELLOW; URINE GLUCOSE (UA) NEGATIVE (NEGATIVE); URINE KETONE NEGATIVE (NEGATIVE); URINE LEUK ESTERASE NEGATIVE (NEGATIVE); URINE NITRITE NEGATIVE (NEGATIVE); URINE PROTEIN NEGATIVE (NEGATIVE)
[2020-12-22 00:55] VITALS: BP 195/107; PULSE 90; TEMP 97.8
== END 2020-12-22 01:01 | disposition left against medical advice (07) ==
LOC: JER 19:15 → JERBED 23:01
PROVIDERS: ADMIT Internal Medicine; ATTEND Internal Medicine
DX: R55 Syncope and collapse (principal); I13.10 Hypertensive heart and chronic kidney disease without heart failure, with stage 1 through stage 4 chronic kidney disease, or unspecified chronic kidney disease; N18.9 Chronic kidney disease, unspecified; Z15.03 Genetic susceptibility to malignant neoplasm of prostate; N40.0 Benign prostatic hyperplasia without lower urinary tract symptoms; I10 Essential (primary) hypertension; E78.00 Pure hypercholesterolemia, unspecified
CPT/HCPCS: 36415; 70450-TC; 71045-TC-FY; 72125-TC; 80053; 81003; 82962; 83735; 84100; 84484; 85025; 87086; 93005; 93010; 99285-25; G0378